=== PATIENT | female | born 1960 | race Caucasian/White ===

== ENCOUNTER 2016-02-19 21:30 | Emergency (ER) | payer OTHER ==
[2016-02-19 21:46] VITALS: RESP 20
--- NOTE | 2016-02-19 23:52 | ED ---
Back Pain HPI - General Chief Complaint: Back Pain/Injury Stated Complaint: fell, back & head injury Time Seen by Provider: 02/19/16 23:23 Source: patient, RN notes reviewed Limitations: no limitations - History of Present Illness Initial Comments: Patient is a 55-year-old female since emergency room for evaluation of fall. Patient states she tripped over a cord follow on her back and then forward hitting her head. Patient states she blacked out for a few seconds. Patient states she woke up and she was having excruciating low back pain and bilateral hip pain. Patient states she has a titanium plate in her left hip is worried that she messed up the hardware. Patient does state that she has a history of chronic low back pain. Patient states the pain is a lot worse tonight. Patient states the incident happened around 8 PM. Patient states having 10 out of 10 pain. Patient states the pain is worse when she moves. Patient denies any numbness or tingling going down her legs. Patient denies saddle anesthesia. Patient denies urinary or fecal incontinence. Patient states that she hit her right arm but denies any significant pain. Patient states she has a slight rug burn over the right forearm. Patient denies any current headache. Patient denies changes in vision. Patient denies dizziness, nausea or vomiting. Patient denies neck pain. - Related Data Home Medications Medication Instructions Recorded Confirmed Clopidogrel Bisulfate [Plavix] 75 mg PO DAILY 06/11/13 02/19/16 Diltiazem Cd [Cardizem CD] 240 mg PO DAILY 06/11/13 02/19/16 ALPRAZolam [Xanax] 0.25 mg PO TID PRN 09/27/14 02/19/16 Albuterol Inhaler [Ventolin Hfa 2 puff INHALATION RT-Q6H PRN 09/27/14 02/19/16 Inhaler] Pantoprazole Sodium [Protonix] 40 mg PO DAILY 04/05/15 02/19/16 Albuterol Nebulized [Ventolin 2.5 mg INHALATION RT-Q6H PRN 05/07/15 02/19/16 Nebulized] Insulin Glargine [Lantus] 40 unit SQ QAM 05/07/15 02/19/16 Metoprolol Tartrate [Lopressor] 25 mg PO BID 05/07/15 02/19/16 Insulin Glargine [Lantus] 50 unit SQ HS 08/26/15 02/19/16 Insulin Glulisine [Apidra Solostar] See Protocol SQ TID 08/26/15 02/19/16 Topiramate [Topamax] 25 mg PO BID 10/09/15 02/19/16 Atorvastatin [Lipitor] 40 mg PO DAILY 10/21/15 02/19/16 Gabapentin [Neurontin] 100 mg PO HS PRN 12/03/15 02/19/16 Losartan Potassium [Cozaar] 25 mg PO DAILY 02/07/16 02/19/16 Previous Rx's Medication Instructions Recorded Aspirin 325 mg PO DAILY tab 10/11/15 Nitroglycerin Sl Tabs [Nitrostat] 0.4 mg SUBLINGUAL Q5M PRN #25 tab 10/11/15 Acetaminophen with Codeine 1 tab PO Q4H PRN #15 tab 02/20/16 [Tylenol w/codeine #3] Allergies Allergy/AdvReac Type Severity Reaction Status Date / Time adhesive tape Allergy Rash/Hives Verified 02/19/16 23:38 indomethacin Allergy Unknown Verified 02/19/16 23:38 ipratropium bromide Allergy Unknown Verified 02/19/16 23:38 [From Atrovent] ketorolac tromethamine Allergy Anaphylaxis Verified 02/19/16 23:38 [From Toradol] naproxen [From Naprosyn] Allergy Itching Verified 02/19/16 23:38 Sulfa (Sulfonamide Allergy Anaphylaxis Verified 02/19/16 23:38 Antibiotics) sulfamethoxazole Allergy Unknown Verified 02/19/16 23:38 [From Bactrim] tramadol Allergy Unknown Verified 02/19/16 23:38 trimethoprim [From Bactrim] Allergy Unknown Verified 02/19/16 23:38 venom-honey bee Allergy Anaphylaxis Verified 02/19/16 23:38 [bee venom (honey bee)] budesonide [From Symbicort] AdvReac Vomiting Verified 02/19/16 23:38 formoterol fumarate AdvReac Vomiting Verified 02/19/16 23:38 [From Symbicort] sucralose AdvReac Rapid Verified 02/19/16 23:38 [From Splenda (sucralose)] Heart Rate tramadol HCl [From Ultram] AdvReac SEIZURES Verified 02/19/16 23:38 Review of Systems ROS Statement: Those systems with pertinent positive or pertinent negative responses have been documented in the HPI. ROS Other: All systems not noted in ROS Statement are negative. Past Medical History Past Medical History: Coronary Artery Disease (CAD), Cancer, COPD, CVA/TIA, Diabetes Mellitus, GERD/Reflux, Hypertension Additional Past Medical History / Comment(s): HX: acute renal problem, neuropathy, CERVICAL CA. Perthes's dx affected short term memory. bilateral glaucoma.recent fall injured pinky finger rt hand. Last Myocardial Infarction Date:: 2001 or 2003 History of Any Multi-Drug Resistant Organisms: None Reported Past Surgical History: Cholecystectomy, Coronary Bypass/CABG, Heart Catheterization With Stent, Orthopedic Surgery Additional Past Surgical History / Comment(s): LEFT HIP ARTHOPLASTY. ORIF RIGHT ANKLE. Cervical cancer surgies. BILATERAL LASER EYE TX FOR GLAUCOMA. Laproscopy. TSS. stent to LAD in 10/2015 Past Anesthesia/Blood Transfusion Reactions: No Reported Reaction Date of Last Stent Placement:: 10/2015 Past Psychological History: Anxiety Additional Psychological History / Comment(s): Pt is disabled-SSI. She is independent and drives a car. Smoking Status: Never smoker Past Alcohol Use History: None Reported Additional Past Alcohol Use History / Comment(s): Pt was an alcoholic and has not drank since 1984 except for one bout of drinking in 2000. Past Drug Use History: None Reported - Past Family History Father History Unknown: Yes Family Medical History: COPD, Renal Disease Additional Family Medical History / Comment(s): Father at age 80yrs. of COPD and kidney faiilure. Mother History Unknown: Yes Family Medical History: Diabetes Mellitus Additional Family Medical History / Comment(s): Mother of diabetes at age 55 yrs. General Exam - General Exam Comments Initial Comments: Laying in exam room, uncomfortable secondary to pain. Limitations: no limitations General appearance: alert, in no apparent distress Head exam: Present: atraumatic, normocephalic, normal inspection Eye exam: Present: normal appearance, PERRL, EOMI Pupils: Present: normal accommodation ENT exam: Present: normal exam Neck exam: Present: normal inspection Respiratory exam: Present: normal lung sounds bilaterally. Absent: respiratory distress Cardiovascular Exam: Present: regular rate, normal rhythm, normal heart sounds Extremities exam: Present: normal inspection Left Hip exam: Present: normal inspection, full ROM. Absent: tenderness Upper Leg exam: Present: normal inspection Knee exam: Present: normal inspection Lower Leg exam: Present: normal inspection Neurovascular tendon exam: Present: no vascular compromise. Absent: pulse deficit (2+ dorsal pedal and posterior tibial pulses), abnormal cap refill ( Capillary refill less than 2 seconds) Gait: observed and normal Back exam: Present: paraspinal tenderness (righ lumbosacral pain), vertebral tenderness (lumbosacral pain) Neurological exam: Present: alert, oriented X3, CN II-XII intact, normal gait Expanded Patient oriented to: Present: person, place, time Speech: Present: fluid speech Cranial nerves: EOM's Intact: Normal, Facial Sensation: Normal Sensory exam: Upper Extremity Light Touch: Normal, Lower Extremity Light Touch: Normal Motor strength exam: RUE: 5, LUE: 5, RLE: 5, LLE: 5 Eye Response: (4) open spontaneously Motor Response: (6) obeys commands Verbal Response: (5) oriented Psychiatric exam: Present: normal affect, normal mood Skin exam: Present: warm, dry, intact, normal color. Absent: rash Course Vital Signs 02/19/16 02/20/16 21:45 01:40 Temperature 98.1 F 98 F Pulse Rate 79 86 Respiratory 20 20 Rate Blood Pressure 172/83 156/89 O2 Sat by Pulse 98 98 Oximetry Medical Decision Making - Medical Decision Making Patient is a 55-year-old female presents to the emergency room for evaluation of fall injury. Brain CT shows no acute findings. X-ray showed no abnormal findings. Advised patient to follow-up with her primary care provider for reevaluation in 24-48 hours. Patient states she understands everything that was discussed with her. Return parameters discussed. Case discussed with Dr. Damon. - Radiology Data Radiology results: report reviewed, image reviewed Disposition Clinical Impression: Fall, Closed head injury, Back pain Disposition: HOME SELF-CARE Condition: Good Instructions: Acute Low Back Pain (ED), Fall Prevention for Older Adults (ED), Head Injury (ED) Additional Instructions: Ice on and off for 10-15 minutes at a time. Take pain medications as needed. Please follow-up with primary care provider in 24-48 hours for reevaluation. If any new symptom arises or symptoms worsen, return to ER as soon as possible. Prescriptions: Acetaminophen with Codeine [Tylenol w/codeine #3] 1 tab PO Q4H PRN #15 tab PRN Reason: Pain Referrals: Singh Dowell MD [Primary Care Provider] - 1-2 days Time of Disposition: 01:26
[2016-02-19] MEDS ORDERED: MORPHINE SULFATE 10 MG/ML SYRINGE IM STA (23:53)
--- NOTE | 2016-02-20 00:41 | CT ---
EXAMINATION TYPE: CT brain aloine wo con DATE OF EXAM: 02/20/2016 12:23 AM COMPARISON: NONE HISTORY: fall, frontal bone pain CT DLP: 1609.90 mGycm Automated exposure control for dose reduction was used. TECHNIQUE: CT scan of the head and cervical spine are performed without contrast. FINDINGS: The ventricles and sulci appear normal. There is no mass effect or midline shift. There i s no sign of intracranial hemorrhage. The calvarium is intact. There is mild mucosal thickening in th e maxillary sinuses. There is mild ethmoid sinus mucosal thickening. The cervical vertebra have normal alignment. There is moderate spurring of the endplates from C3 to C 7. Posterior elements are intact. There is multilevel hypertrophic facet arthropathy. There is a very large posterior hypertrophic osteophyte at the C6-7 endplate with resultant significant cervical bon y spinal stenosis. There is also spinal stenosis at other levels due to facet arthropathy and endplat e spur formation. The canal is narrowed to 4 to 5 mm at C6-7. The skull base is intact. IMPRESSION: Mild sinusitis. Otherwise negative CT scan of the brain. Multilevel spondylosis with severe bony spinal stenosis at C6-7. No fracture.
--- NOTE | 2016-02-20 00:43 | XR ---
EXAMINATION TYPE: XR Hip LT and AP Pelvis DATE OF EXAM: 02/20/2016 12:28 AM COMPARISON: NONE HISTORY: Left hip pain TECHNIQUE: A single AP view of the pelvis is obtained. Two views of the left hip are obtained. FINDINGS: The pelvic ring is intact. There is a left hip prosthesis. Components appear in anatomic po sition. Sacroiliac joints are normal. I see no fracture. IMPRESSION Negative pelvis and left hip exam. No fracture seen.
--- NOTE | 2016-02-20 00:45 | XR ---
EXAMINATION TYPE: XR lumbosacral spine min 4V DATE OF EXAM: 02/20/2016 12:32 AM COMPARISON: 05/26/2014 HISTORY: Low back pain TECHNIQUE: 5 views FINDINGS: The lumbar vertebra have normal alignment. Posterior elements are intact. There is mild hyp ertrophic spur formation of the endplates. I see no compression fracture. Sacroiliac joints are not w ell seen. IMPRESSION: Mild spondylotic changes. No fracture seen. No change compared to old exam.
[2016-02-20] MEDS ORDERED: Acetaminophen-Codeine 300-30mg TAB PO STA (01:33)
[2016-02-20 01:41] VITALS: BP 156/89; PULSE 86; TEMP 98
== END 2016-02-20 01:41 | disposition home or self-care (01) ==
LOC: EC 21:30
DX: S09.90XA Unspecified injury of head, initial encounter (principal); M54.5 Low back pain; W18.09XA Striking against other object with subsequent fall, initial encounter; J44.9 Chronic obstructive pulmonary disease, unspecified; E11.40 Type 2 diabetes mellitus with diabetic neuropathy, unspecified; I10 Essential (primary) hypertension; K21.9 Gastro-esophageal reflux disease without esophagitis; F41.9 Anxiety disorder, unspecified; I25.10 Atherosclerotic heart disease of native coronary artery without angina pectoris; Z79.02 Long term (current) use of antithrombotics/antiplatelets; Z79.4 Long term (current) use of insulin; Z79.82 Long term (current) use of aspirin; Z79.899 Other long term (current) drug therapy; Z88.1 Allergy status to other antibiotic agents; Z88.2 Allergy status to sulfonamides; Z88.5 Allergy status to narcotic agent; Z88.6 Allergy status to analgesic agent; Z88.8 Allergy status to other drugs, medicaments and biological substances; Z86.73 Personal history of transient ischemic attack (TIA), and cerebral infarction without residual deficits
CPT/HCPCS: 70450; 72110; 72125; 73502; 99284

== ENCOUNTER 2016-03-02 03:45 | Emergency (ER) | payer OTHER ==
[2016-03-02 04:08] VITALS: TEMP 98
[2016-03-02] MEDS ORDERED: ONDANSETRON 4 MG/2 ML VIAL IVP STA (04:16)
[2016-03-02] MEDS ORDERED: FAMOTIDINE 20 MG/2 ML VIAL IV STA (04:43)
[2016-03-02 04:44] LABS: Basophils # (A) 0.1 k/uL (0-0.2); Basophils % (A) 1 %; CH 28.9; CHCM 34.6; Eosinophils # (A) 0.1 k/uL (0-0.7); Eosinophils % (A) 2 %; HCT 36.8 % (34.0-46.0); HDW 3.42; HGB 12.5 gm/dL (11.4-16.0); Luc # (Auto) 0.14; Luc % (Auto) 2; Lymphocytes # (A) 1.7 k/uL (1.0-4.8); Lymphocytes % (A) 25 %; MCH 28.6 pg (25.0-35.0); MCHC 34.1 g/dL (31.0-37.0); Mean Platelet Volume 7.7; Monocytes # (A) 0.6 k/uL (0-1.0); Monocytes % (A) 9 %; Neutrophils # (A) 4.2 k/uL (1.3-7.7); Neutrophils % (A) 62 %; Poikilocytosis Slight; RBC 4.38 m/uL (3.80-5.40); RDW 13.9 % (11.5-15.5); WBC 6.8 k/uL (3.8-10.6); WBC (Perox) 6.85
[2016-03-02 04:55] LABS: ALT 32 U/L (9-52); AST 20 U/L (14-36); Alkaline Phosphatase 134 U/L (38-126); Anion Gap 10 mmol/L; Blood Urea Nitrogen 14 mg/dL (7-17); Calcium 8.3 mg/dL (8.4-10.2); Carbon Dioxide 27 mmol/L (22-30); Chloride 109 mmol/L (98-107); Glucose 127 mg/dL (74-99); Non-African American GFR(MDRD) >60 (>60 ml/min/1.73 sqM); Potassium 3.7 mmol/L (3.5-5.1); Sodium 146 mmol/L (137-145); Total Bilirubin 0.5 mg/dL (0.2-1.3); Total Protein 6.5 g/dL (6.3-8.2)
[2016-03-02 06:57] VITALS: BP 148/71; PULSE 66; RESP 16
--- NOTE | 2016-03-02 06:57 | ED ---
Abdominal Pain HPI - General Chief Complaint: Abdominal Pain Stated Complaint: Abdominal Pain Time Seen by Provider: 03/02/16 04:16 Source: patient Mode of arrival: EMS Limitations: no limitations - History of Present Illness MD Complaint: abdominal pain -: hour(s) Location: epigastric Radiation: none Migration to: no migration Severity: moderate Consistency: constant Improves With: nothing Worsens With: nothing - Related Data Home Medications Medication Instructions Recorded Confirmed Clopidogrel Bisulfate [Plavix] 75 mg PO DAILY 06/11/13 03/11/16 Diltiazem Cd [Cardizem CD] 240 mg PO DAILY 06/11/13 03/11/16 ALPRAZolam [Xanax] 0.25 mg PO TID PRN 09/27/14 03/11/16 Albuterol Inhaler [Ventolin Hfa 2 puff INHALATION RT-Q6H PRN 09/27/14 03/11/16 Inhaler] Pantoprazole Sodium [Protonix] 40 mg PO BID 04/05/15 03/11/16 Albuterol Nebulized [Ventolin 2.5 mg INHALATION RT-Q6H PRN 05/07/15 03/11/16 Nebulized] Metoprolol Tartrate [Lopressor] 25 mg PO BID 05/07/15 03/11/16 Insulin Glargine [Lantus] 50 unit SQ BID 08/26/15 03/11/16 Insulin Glulisine [Apidra Solostar] See Protocol SQ TID 08/26/15 03/11/16 Topiramate [Topamax] 25 mg PO BID 10/09/15 03/11/16 Atorvastatin [Lipitor] 40 mg PO DAILY 10/21/15 03/11/16 Gabapentin [Neurontin] 100 mg PO HS PRN 12/03/15 03/11/16 Losartan Potassium [Cozaar] 25 mg PO DAILY 02/07/16 03/11/16 Topiramate [Topamax] 50 mg PO BID 03/04/16 03/11/16 Previous Rx's Medication Instructions Recorded Aspirin 325 mg PO DAILY tab 10/11/15 Nitroglycerin Sl Tabs [Nitrostat] 0.4 mg SUBLINGUAL Q5M PRN #25 tab 10/11/15 Acetaminophen with Codeine 1 tab PO Q4H PRN #15 tab 02/20/16 [Tylenol w/codeine #3] Acetaminophen with Codeine 1 tab PO Q4H #10 tab 03/04/16 [Tylenol w/codeine #3] Levofloxacin [Levaquin] 750 mg PO DAILY #4 tab 03/04/16 Ondansetron [Zofran] 4 mg PO Q8HR PRN #8 tab 03/04/16 Allergies Allergy/AdvReac Type Severity Reaction Status Date / Time adhesive tape Allergy Rash/Hives Verified 03/11/16 00:34 indomethacin Allergy Unknown Verified 03/11/16 00:34 ipratropium bromide Allergy Unknown Verified 03/11/16 00:34 [From Atrovent] ketorolac tromethamine Allergy Anaphylaxis Verified 03/11/16 00:34 [From Toradol] naproxen [From Naprosyn] Allergy Itching Verified 03/11/16 00:34 Sulfa (Sulfonamide Allergy Anaphylaxis Verified 03/11/16 00:34 Antibiotics) sulfamethoxazole Allergy Unknown Verified 03/11/16 00:34 [From Bactrim] tramadol Allergy Unknown Verified 03/11/16 00:34 trimethoprim [From Bactrim] Allergy Unknown Verified 03/11/16 00:34 venom-honey bee Allergy Anaphylaxis Verified 03/11/16 00:34 [bee venom (honey bee)] budesonide [From Symbicort] AdvReac Vomiting Verified 03/11/16 00:34 formoterol fumarate AdvReac Vomiting Verified 03/11/16 00:34 [From Symbicort] sucralose AdvReac Rapid Verified 03/11/16 00:34 [From Splenda (sucralose)] Heart Rate tramadol HCl [From Ultram] AdvReac SEIZURES Verified 03/11/16 00:34 Review of Systems ROS Statement: Those systems with pertinent positive or pertinent negative responses have been documented in the HPI. ROS Other: All systems not noted in ROS Statement are negative. Constitutional: Denies: fever, chills Respiratory: Denies: cough, dyspnea, wheezes Cardiovascular: Denies: chest pain, palpitations, edema Gastrointestinal: Reports: as per HPI, abdominal pain. Denies: nausea, vomiting , diarrhea, constipation Genitourinary: Denies: dysuria, hematuria Musculoskeletal: Denies: back pain Skin: Denies: rash Neurological: Denies: headache, weakness, numbness Past Medical History Past Medical History: Coronary Artery Disease (CAD), Cancer, COPD, CVA/TIA, Diabetes Mellitus, GERD/Reflux, Hypertension Additional Past Medical History / Comment(s): HX: acute renal problem, neuropathy, CERVICAL CA. Perthes's dx affected short term memory. bilateral glaucoma.recent fall injured pinky finger rt hand. Last Myocardial Infarction Date:: 2001 or 2003 History of Any Multi-Drug Resistant Organisms: None Reported Past Surgical History: Cholecystectomy, Coronary Bypass/CABG, Heart Catheterization With Stent, Orthopedic Surgery Additional Past Surgical History / Comment(s): LEFT HIP ARTHOPLASTY. ORIF RIGHT ANKLE. Cervical cancer surgies. BILATERAL LASER EYE TX FOR GLAUCOMA. Laproscopy. TSS. stent to LAD in 10/2015 Past Anesthesia/Blood Transfusion Reactions: No Reported Reaction Date of Last Stent Placement:: 10/2015 Past Psychological History: Anxiety Additional Psychological History / Comment(s): Pt is disabled-SSI. She is independent and drives a car. Smoking Status: Never smoker Past Alcohol Use History: None Reported Additional Past Alcohol Use History / Comment(s): Pt was an alcoholic and has not drank since 1984 except for one bout of drinking in 2000. Past Drug Use History: None Reported - Past Family History Father History Unknown: Yes Family Medical History: COPD, Renal Disease Additional Family Medical History / Comment(s): Father at age 80yrs. of COPD and kidney faiilure. Mother History Unknown: Yes Family Medical History: Diabetes Mellitus Additional Family Medical History / Comment(s): Mother of diabetes at age 55 yrs. General Exam Limitations: no limitations General appearance: alert, in no apparent distress Head exam: Present: atraumatic, normocephalic, normal inspection Eye exam: Present: normal appearance. Absent: scleral icterus, conjunctival injection Neck exam: Present: normal inspection, full ROM Respiratory exam: Present: normal lung sounds bilaterally. Absent: respiratory distress, wheezes, rales, rhonchi Cardiovascular Exam: Present: regular rate, normal rhythm, normal heart sounds. Absent: systolic murmur, diastolic murmur, rubs, gallop GI/Abdominal exam: Present: soft, tenderness (Mild epigastric tenderness no rebound or guarding), normal bowel sounds. Absent: distended, guarding, rebound , rigid, pulsatile mass, hernia Extremities exam: Present: normal capillary refill. Absent: pedal edema, calf tenderness Back exam: Present: normal inspection. Absent: CVA tenderness (R), CVA tenderness (L) Neurological exam: Present: alert Skin exam: Present: warm, dry, intact, normal color. Absent: rash, cyanosis, diaphoretic, erythema, petechiae, pallor, mottled Course Vital Signs 03/02/16 03/02/16 04:05 06:55 Temperature 98.0 F Pulse Rate 69 66 Respiratory 20 16 Rate Blood Pressure 138/82 148/71 O2 Sat by Pulse 97 99 Oximetry Medical Decision Making - Lab Data Result diagrams: 03/02/16 04:36 03/02/16 04:36 Lab Results 03/02/16 03/02/16 Range/Units 04:36 04:36 WBC 6.8 (3.8-10.6) k/uL RBC 4.38 (3.80-5.40) m/uL Hgb 12.5 (11.4-16.0) gm/dL Hct 36.8 (34.0-46.0) % MCV 84.0 (80.0-100.0) fL MCH 28.6 (25.0-35.0) pg MCHC 34.1 (31.0-37.0) g/dL RDW 13.9 (11.5-15.5) % Plt Count 203 (150-450) k/uL Neutrophils % 62 % Lymphocytes % 25 % Monocytes % 9 % Eosinophils % 2 % Basophils % 1 % Neutrophils # 4.2 (1.3-7.7) k/uL Lymphocytes # 1.7 (1.0-4.8) k/uL Monocytes # 0.6 (0-1.0) k/uL Eosinophils # 0.1 (0-0.7) k/uL Basophils # 0.1 (0-0.2) k/uL Poikilocytosis Slight Sodium 146 H (137-145) mmol/L Potassium 3.7 (3.5-5.1) mmol/L Chloride 109 H (98-107) mmol/L Carbon Dioxide 27 (22-30) mmol/L Anion Gap 10 mmol/L BUN 14 (7-17) mg/dL Creatinine 0.92 (0.52-1.04) mg/dL Est GFR (MDRD) Af Amer >60 (>60 ml/min/1.73 sqM) Est GFR (MDRD) Non-Af >60 (>60 ml/min/1.73 sqM) Glucose 127 H (74-99) mg/dL Calcium 8.3 L (8.4-10.2) mg/dL Total Bilirubin 0.5 (0.2-1.3) mg/dL AST 20 (14-36) U/L ALT 32 (9-52) U/L Alkaline Phosphatase 134 H (38-126) U/L Total Protein 6.5 (6.3-8.2) g/dL Albumin 3.5 (3.5-5.0) g/dL Disposition Clinical Impression: Gastritis Disposition: HOME SELF-CARE Condition: Good Instructions: Gastritis (ED) Referrals: Singh Dowell MD [Primary Care Provider] - 1-2 days
== END 2016-03-02 07:03 | disposition home or self-care (01) ==
LOC: EC 03:45
DX: K29.70 Gastritis, unspecified, without bleeding (principal); E11.9 Type 2 diabetes mellitus without complications; I25.10 Atherosclerotic heart disease of native coronary artery without angina pectoris; K21.9 Gastro-esophageal reflux disease without esophagitis; I10 Essential (primary) hypertension; J44.9 Chronic obstructive pulmonary disease, unspecified; Z95.1 Presence of aortocoronary bypass graft; Z95.5 Presence of coronary angioplasty implant and graft; Z79.82 Long term (current) use of aspirin; Z79.02 Long term (current) use of antithrombotics/antiplatelets; Z79.899 Other long term (current) drug therapy; Z79.4 Long term (current) use of insulin; Z88.2 Allergy status to sulfonamides; Z88.1 Allergy status to other antibiotic agents; Z88.5 Allergy status to narcotic agent; Z88.6 Allergy status to analgesic agent; Z88.8 Allergy status to other drugs, medicaments and biological substances; Z86.73 Personal history of transient ischemic attack (TIA), and cerebral infarction without residual deficits
CPT/HCPCS: 36415; 80053; 85025; 99284; 96374; 96375; J2405

== ENCOUNTER 2016-03-04 18:57 | Emergency (ER) | payer OTHER ==
[2016-03-04 19:18] VITALS: RESP 18; TEMP 98.3
[2016-03-04] MEDS ORDERED: SODIUM CHLORIDE 0.9% 1,000 ML IV STA (19:29)
--- NOTE | 2016-03-04 19:31 | ED ---
Abdominal Pain HPI - General Chief Complaint: Abdominal Pain Stated Complaint: RT SIDE ABDOMINAL PAIN Time Seen by Provider: 03/04/16 19:20 Source: patient, RN notes reviewed Mode of arrival: ambulatory Limitations: no limitations - History of Present Illness Initial Comments: Patient is a 55-year-old female presenting to the for revisit of abdominal pain. Patient reports that she was seen 2 days ago and was diagnosed with gastritis and was given Pepcid. Patient reports that despite taking the medications, she still having abdominal pain. Patient reports that she also has symptoms of dysuria. She denies any vaginal discharge. Patient reports that the pain is mainly located in the right upper quadrant. She's had a history of cholecystectomy. She has a past medical history of diabetes and states that she has been taking her insulin regularly today. Patient reports that she was able to eat Hebrew food earlier this evening. She denies any vomiting. She just reports a sharp pain on the right upper quadrant that radiates towards the right lower quadrant. She states that the pain is also worse with position. She denies any hematuria, diarrhea, arm melena or hematochezia. She denies any fevers or chills. She reports her last menstrual period was approximately 10 years ago. - Related Data Home Medications Medication Instructions Recorded Confirmed Clopidogrel Bisulfate [Plavix] 75 mg PO DAILY 06/11/13 03/04/16 Diltiazem Cd [Cardizem CD] 240 mg PO DAILY 06/11/13 03/04/16 ALPRAZolam [Xanax] 0.25 mg PO TID PRN 09/27/14 03/04/16 Albuterol Inhaler [Ventolin Hfa 2 puff INHALATION RT-Q6H PRN 09/27/14 03/04/16 Inhaler] Pantoprazole Sodium [Protonix] 40 mg PO BID 04/05/15 03/04/16 Albuterol Nebulized [Ventolin 2.5 mg INHALATION RT-Q6H PRN 05/07/15 03/04/16 Nebulized] Metoprolol Tartrate [Lopressor] 25 mg PO BID 05/07/15 03/04/16 Insulin Glargine [Lantus] 50 unit SQ BID 08/26/15 03/04/16 Insulin Glulisine [Apidra Solostar] See Protocol SQ TID 08/26/15 03/04/16 Topiramate [Topamax] 25 mg PO BID 10/09/15 03/04/16 Atorvastatin [Lipitor] 40 mg PO DAILY 10/21/15 03/04/16 Gabapentin [Neurontin] 100 mg PO HS PRN 12/03/15 03/04/16 Losartan Potassium [Cozaar] 25 mg PO DAILY 02/07/16 03/04/16 Topiramate [Topamax] 50 mg PO BID 03/04/16 03/04/16 Previous Rx's Medication Instructions Recorded Aspirin 325 mg PO DAILY tab 10/11/15 Nitroglycerin Sl Tabs [Nitrostat] 0.4 mg SUBLINGUAL Q5M PRN #25 tab 10/11/15 Acetaminophen with Codeine 1 tab PO Q4H PRN #15 tab 02/20/16 [Tylenol w/codeine #3] Acetaminophen with Codeine 1 tab PO Q4H #10 tab 03/04/16 [Tylenol w/codeine #3] Levofloxacin [Levaquin] 750 mg PO DAILY #4 tab 03/04/16 Ondansetron [Zofran] 4 mg PO Q8HR PRN #8 tab 03/04/16 Allergies Allergy/AdvReac Type Severity Reaction Status Date / Time adhesive tape Allergy Rash/Hives Verified 03/04/16 19:16 indomethacin Allergy Unknown Verified 03/04/16 19:16 ipratropium bromide Allergy Unknown Verified 03/04/16 19:16 [From Atrovent] ketorolac tromethamine Allergy Anaphylaxis Verified 03/04/16 19:16 [From Toradol] naproxen [From Naprosyn] Allergy Itching Verified 03/04/16 19:16 Sulfa (Sulfonamide Allergy Anaphylaxis Verified 03/04/16 19:16 Antibiotics) sulfamethoxazole Allergy Unknown Verified 03/04/16 19:16 [From Bactrim] tramadol Allergy Unknown Verified 03/04/16 19:16 trimethoprim [From Bactrim] Allergy Unknown Verified 03/04/16 19:16 venom-honey bee Allergy Anaphylaxis Verified 03/04/16 19:16 [bee venom (honey bee)] budesonide [From Symbicort] AdvReac Vomiting Verified 03/04/16 19:16 formoterol fumarate AdvReac Vomiting Verified 03/04/16 19:16 [From Symbicort] sucralose AdvReac Rapid Verified 03/04/16 19:16 [From Splenda (sucralose)] Heart Rate tramadol HCl [From Ultram] AdvReac SEIZURES Verified 03/04/16 19:16 Review of Systems ROS Statement: Those systems with pertinent positive or pertinent negative responses have been documented in the HPI. ROS Other: All systems not noted in ROS Statement are negative. Past Medical History Past Medical History: Coronary Artery Disease (CAD), Cancer, COPD, CVA/TIA, Diabetes Mellitus, GERD/Reflux, Hypertension Additional Past Medical History / Comment(s): HX: acute renal problem, neuropathy, CERVICAL CA. Perthes's dx affected short term memory. bilateral glaucoma.recent fall injured pinky finger rt hand. Last Myocardial Infarction Date:: 2001 or 2003 History of Any Multi-Drug Resistant Organisms: None Reported Past Surgical History: Cholecystectomy, Coronary Bypass/CABG, Heart Catheterization With Stent, Orthopedic Surgery Additional Past Surgical History / Comment(s): LEFT HIP ARTHOPLASTY. ORIF RIGHT ANKLE. Cervical cancer surgies. BILATERAL LASER EYE TX FOR GLAUCOMA. Laproscopy. TSS. stent to LAD in 10/2015 Past Anesthesia/Blood Transfusion Reactions: No Reported Reaction Date of Last Stent Placement:: 10/2015 Past Psychological History: Anxiety Additional Psychological History / Comment(s): Pt is disabled-SSI. She is independent and drives a car. Smoking Status: Never smoker Past Alcohol Use History: None Reported Additional Past Alcohol Use History / Comment(s): Pt was an alcoholic and has not drank since 1984 except for one bout of drinking in 2000. Past Drug Use History: None Reported - Past Family History Father History Unknown: Yes Family Medical History: COPD, Renal Disease Additional Family Medical History / Comment(s): Father at age 80yrs. of COPD and kidney faiilure. Mother History Unknown: Yes Family Medical History: Diabetes Mellitus Additional Family Medical History / Comment(s): Mother of diabetes at age 55 yrs. General Exam - General Exam Comments Initial Comments: Patient is a pleasant 55-year-old female. Appear to be in any acute distress. Limitations: no limitations General appearance: alert, in no apparent distress Head exam: Present: atraumatic, normocephalic, normal inspection Eye exam: Present: normal appearance, PERRL, EOMI. Absent: scleral icterus, conjunctival injection, periorbital swelling ENT exam: Present: normal exam, mucous membranes moist Neck exam: Present: normal inspection. Absent: tenderness, meningismus, lymphadenopathy Respiratory exam: Present: normal lung sounds bilaterally. Absent: respiratory distress, wheezes, rales, rhonchi, stridor Cardiovascular Exam: Present: regular rate, normal rhythm, normal heart sounds. Absent: systolic murmur, diastolic murmur, rubs, gallop, clicks GI/Abdominal exam: Present: soft, tenderness (Patient reports right flank and right upper quadrant tenderness.), normal bowel sounds. Absent: distended, guarding, rebound, rigid Extremities exam: Present: normal inspection, full ROM, normal capillary refill. Absent: tenderness, pedal edema, joint swelling, calf tenderness Back exam: Present: normal inspection Neurological exam: Present: alert, oriented X3, CN II-XII intact Psychiatric exam: Present: normal affect, normal mood Skin exam: Present: warm, dry, intact, normal color. Absent: rash Course Vital Signs 03/04/16 03/04/16 19:16 21:12 Temperature 98.3 F 98.3 F Pulse Rate 75 68 Respiratory 18 18 Rate Blood Pressure 172/79 135/62 O2 Sat by Pulse 98 99 Oximetry Medical Decision Making - Medical Decision Making Patient is a 55 year old female with right flank pain and right upper quadrant pain for 2 days. She was seen 2 days ago and diagnosed with gastritis. She denies any vomiting and diarrhea. She states she was able to eat niuean food earlier today. She reports some mild dysuria. Lab reviewed and unremarkable, patient may have mild UTI starting and will be placed on levaquin and suggested by Dr. Plata. At this point it is not indicated to do a CT at this time, and urinalysis is negative for blood. Patient understands treatment plan and will comply. PAtient will be given Rx for pain medication, levaquin, and instructed to follow up with her PCP. Patient at the end of the visit stated that she has an appointment with her PCP tomorrow. Return parameters discussed. - Lab Data Result diagrams: 03/04/16 20:05 03/04/16 20:05 Lab Results 03/04/16 03/04/16 03/04/16 Range/Units 19:50 20:05 20:05 WBC 7.9 (3.8-10.6) k/uL RBC 4.30 (3.80-5.40) m/uL Hgb 12.4 (11.4-16.0) gm/dL Hct 37.0 (34.0-46.0) % MCV 85.9 (80.0-100.0) fL MCH 28.7 (25.0-35.0) pg MCHC 33.4 (31.0-37.0) g/dL RDW 14.0 (11.5-15.5) % Plt Count 236 (150-450) k/uL Neutrophils % 71 % Lymphocytes % 20 % Monocytes % 5 % Eosinophils % 2 % Basophils % 1 % Neutrophils # 5.7 (1.3-7.7) k/uL Lymphocytes # 1.6 (1.0-4.8) k/uL Monocytes # 0.4 (0-1.0) k/uL Eosinophils # 0.2 (0-0.7) k/uL Basophils # 0.1 (0-0.2) k/uL Sodium 143 (137-145) mmol/L Potassium 4.0 (3.5-5.1) mmol/L Chloride 106 (98-107) mmol/L Carbon Dioxide 24 (22-30) mmol/L Anion Gap 13 mmol/L BUN 12 (7-17) mg/dL Creatinine 0.85 (0.52-1.04) mg/dL Est GFR (MDRD) Af Amer >60 (>60 ml/min/1.73 sqM) Est GFR (MDRD) Non-Af >60 (>60 ml/min/1.73 sqM) Glucose 260 H (74-99) mg/dL Calcium 8.3 L (8.4-10.2) mg/dL Total Bilirubin 0.5 (0.2-1.3) mg/dL AST 23 (14-36) U/L ALT 41 (9-52) U/L Alkaline Phosphatase 144 H (38-126) U/L Total Protein 6.6 (6.3-8.2) g/dL Albumin 3.4 L (3.5-5.0) g/dL Amylase 61 (30-110) U/L Lipase 263 (23-300) U/L Urine Color Yellow Urine Appearance Cloudy H (Clear) Urine pH 5.5 (5.0-8.0) Ur Specific Garrett 1.017 (1.001-1.035) Urine Protein Trace H (Negative) Urine Glucose (UA) 4+ H (Negative) Urine Ketones Negative (Negative) Urine Blood Negative (Negative) Urine Nitrate Negative (Negative) Urine Bilirubin Negative (Negative) Urine Urobilinogen 2.0 (<2.0) mg/dL Ur Leukocyte Esterase Small H (Negative) Urine RBC 1 (0-5) /hpf Urine WBC 14 H (0-5) /hpf Ur Squamous Epith Cells 16 H (0-4) /hpf Urine Bacteria Rare H (None) /hpf - Radiology Data Radiology results: report reviewed KUB shows no acute abnormalities. Disposition Clinical Impression: Urinary tract infection Disposition: HOME SELF-CARE Condition: Good Instructions: Urinary Tract Infection in Women (ED) Additional Instructions: Patient instructed to completely anabiotic prescription. Follow-up with primary care provider tomorrow. Return to the [facility] any alarming signs symptoms occur. Prescriptions: Acetaminophen with Codeine [Tylenol w/codeine #3] 1 tab PO Q4H #10 tab Levofloxacin [Levaquin] 750 mg PO DAILY #4 tab Ondansetron [Zofran] 4 mg PO Q8HR PRN #8 tab PRN Reason: Nausea And Vomiting Referrals: Singh Dowell MD [Primary Care Provider] - 1-2 days Time of Disposition: 21:01
[2016-03-04 20:15] LABS: Appearance,Urine Cloudy (Clear); Bacteria,Urine Rare /hpf; Bilirubin,Urine Negative (Negative); Glucose,Urine (UA) 4+ (Negative); Ketones,Urine Negative (Negative); Leukocyte Esterase,Urine Small (Negative); Nitrite,Urine Negative (Negative); PH, Urine 5.5 (5.0-8.0); Particle Count 6573; Protein,Urine Trace (Negative); RBC,Urine 1 /hpf (0-5); Specific Gravity,Urine 1.017 (1.001-1.035); Squamous Epithelial Cell,Urine 16 /hpf (0-4); UA Billing (MACRO vs. MICRO) MICRO; WBC,Urine 14 /hpf (0-5)
[2016-03-04 20:19] LABS: Basophils # (A) 0.1 k/uL (0-0.2); Basophils % (A) 1 %; CH 28.7; CHCM 33.6; Eosinophils # (A) 0.2 k/uL (0-0.7); Eosinophils % (A) 2 %; HDW 3.34; HGB 12.4 gm/dL (11.4-16.0); Luc # (Auto) 0.12; Luc % (Auto) 2; Lymphocytes # (A) 1.6 k/uL (1.0-4.8); Lymphocytes % (A) 20 %; MCH 28.7 pg (25.0-35.0); MCHC 33.4 g/dL (31.0-37.0); MCV 85.9 fL (80.0-100.0); Mean Platelet Volume 7.4; Monocytes # (A) 0.4 k/uL (0-1.0); Monocytes % (A) 5 %; Neutrophils # (A) 5.7 k/uL (1.3-7.7); Neutrophils % (A) 71 %; WBC 7.9 k/uL (3.8-10.6); WBC (Perox) 8.48
[2016-03-04 20:25] LABS: ALT 41 U/L (9-52); AST 23 U/L (14-36); Alkaline Phosphatase 144 U/L (38-126); Amylase 61 U/L (30-110); Anion Gap 13 mmol/L; Blood Urea Nitrogen 12 mg/dL (7-17); Calcium 8.3 mg/dL (8.4-10.2); Carbon Dioxide 24 mmol/L (22-30); Chloride 106 mmol/L (98-107); Glucose 260 mg/dL (74-99); Non-African American GFR(MDRD) >60 (>60 ml/min/1.73 sqM); Sodium 143 mmol/L (137-145); Total Bilirubin 0.5 mg/dL (0.2-1.3); Total Protein 6.6 g/dL (6.3-8.2)
--- NOTE | 2016-03-04 20:31 | XR ---
EXAMINATION TYPE: XR KUB DATE OF EXAM ORDERED: 03/04/2016 8:26 PM HISTORY: Left-sided abdominal pain. COMPARISON: Previous study dated 07/24/2015. FINDINGS: There has been a previous midline sternotomy. There has been a left hip arthroplasty. Ther e has been a previous cholecystectomy. There is a dextroscoliosis. The abdominal gas pattern is within normal limits. There is no evidence of obstruction or free air. T here are stable left upper quadrant calcifications. IMPRESSION: I DO NOT SEE AN ACUTE INTRA-ABDOMINAL ABNORMALITY.
[2016-03-04] MEDS ORDERED: ACET/COD 300 MG/30 MG STARTER PACK 6 TAB BTL PO STA (21:03)
[2016-03-04] MEDS ORDERED: LEVOFLOXACIN 750 MG TAB PO STA (21:03)
[2016-03-04 21:13] VITALS: BP 135/62; PULSE 68
== END 2016-03-04 21:12 | disposition home or self-care (01) ==
LOC: EC 18:57
DX: N39.0 Urinary tract infection, site not specified (principal); E11.9 Type 2 diabetes mellitus without complications; I25.10 Atherosclerotic heart disease of native coronary artery without angina pectoris; I10 Essential (primary) hypertension; K21.9 Gastro-esophageal reflux disease without esophagitis; F41.9 Anxiety disorder, unspecified; Z85.41 Personal history of malignant neoplasm of cervix uteri; Z95.5 Presence of coronary angioplasty implant and graft; Z95.1 Presence of aortocoronary bypass graft; Z79.899 Other long term (current) drug therapy; Z79.02 Long term (current) use of antithrombotics/antiplatelets; Z79.4 Long term (current) use of insulin; Z88.8 Allergy status to other drugs, medicaments and biological substances; Z88.2 Allergy status to sulfonamides; Z88.6 Allergy status to analgesic agent; Z88.5 Allergy status to narcotic agent; Z88.1 Allergy status to other antibiotic agents
CPT/HCPCS: 36415; 74000; 80053; 81001; 82150; 83690; 85025; 87086; 99284

== ENCOUNTER 2016-03-11 00:26 | Emergency (ER) | payer OTHER ==
[2016-03-11 00:34] VITALS: BP 171/78; PULSE 63; RESP 16; TEMP 98.5
--- NOTE | 2016-03-11 01:27 | ED ---
Upper Extremity HPI - General Chief Complaint: Extremity Injury, Upper Stated Complaint: Arm injury/Fell down stairs Time Seen by Provider: 03/11/16 00:36 Source: patient, RN notes reviewed Mode of arrival: ambulatory Limitations: no limitations - History of Present Illness Initial Comments: 55-year-old female presents emergency Department chief complaint of left elbow injury. Patient states she tripped and fell down 2 stairs. Patient has no injuries other than left elbow pain. Patient states that she can not straighten elbow secondary to pain. Patient states she is right-hand dominant. Patient offers no other complaints. Place: home - Related Data Home Medications Medication Instructions Recorded Confirmed Clopidogrel Bisulfate [Plavix] 75 mg PO DAILY 06/11/13 03/11/16 Diltiazem Cd [Cardizem CD] 240 mg PO DAILY 06/11/13 03/11/16 ALPRAZolam [Xanax] 0.25 mg PO TID PRN 09/27/14 03/11/16 Albuterol Inhaler [Ventolin Hfa 2 puff INHALATION RT-Q6H PRN 09/27/14 03/11/16 Inhaler] Pantoprazole Sodium [Protonix] 40 mg PO BID 04/05/15 03/11/16 Albuterol Nebulized [Ventolin 2.5 mg INHALATION RT-Q6H PRN 05/07/15 03/11/16 Nebulized] Metoprolol Tartrate [Lopressor] 25 mg PO BID 05/07/15 03/11/16 Insulin Glargine [Lantus] 50 unit SQ BID 08/26/15 03/11/16 Insulin Glulisine [Apidra Solostar] See Protocol SQ TID 08/26/15 03/11/16 Topiramate [Topamax] 25 mg PO BID 10/09/15 03/11/16 Atorvastatin [Lipitor] 40 mg PO DAILY 10/21/15 03/11/16 Gabapentin [Neurontin] 100 mg PO HS PRN 12/03/15 03/11/16 Losartan Potassium [Cozaar] 25 mg PO DAILY 02/07/16 03/11/16 Topiramate [Topamax] 50 mg PO BID 03/04/16 03/11/16 Previous Rx's Medication Instructions Recorded Aspirin 325 mg PO DAILY tab 10/11/15 Nitroglycerin Sl Tabs [Nitrostat] 0.4 mg SUBLINGUAL Q5M PRN #25 tab 10/11/15 Acetaminophen with Codeine 1 tab PO Q4H PRN #15 tab 02/20/16 [Tylenol w/codeine #3] Acetaminophen with Codeine 1 tab PO Q4H #10 tab 03/04/16 [Tylenol w/codeine #3] Levofloxacin [Levaquin] 750 mg PO DAILY #4 tab 03/04/16 Ondansetron [Zofran] 4 mg PO Q8HR PRN #8 tab 03/04/16 Allergies Allergy/AdvReac Type Severity Reaction Status Date / Time adhesive tape Allergy Rash/Hives Verified 03/11/16 00:34 indomethacin Allergy Unknown Verified 03/11/16 00:34 ipratropium bromide Allergy Unknown Verified 03/11/16 00:34 [From Atrovent] ketorolac tromethamine Allergy Anaphylaxis Verified 03/11/16 00:34 [From Toradol] naproxen [From Naprosyn] Allergy Itching Verified 03/11/16 00:34 Sulfa (Sulfonamide Allergy Anaphylaxis Verified 03/11/16 00:34 Antibiotics) sulfamethoxazole Allergy Unknown Verified 03/11/16 00:34 [From Bactrim] tramadol Allergy Unknown Verified 03/11/16 00:34 trimethoprim [From Bactrim] Allergy Unknown Verified 03/11/16 00:34 venom-honey bee Allergy Anaphylaxis Verified 03/11/16 00:34 [bee venom (honey bee)] budesonide [From Symbicort] AdvReac Vomiting Verified 03/11/16 00:34 formoterol fumarate AdvReac Vomiting Verified 03/11/16 00:34 [From Symbicort] sucralose AdvReac Rapid Verified 03/11/16 00:34 [From Splenda (sucralose)] Heart Rate tramadol HCl [From Ultram] AdvReac SEIZURES Verified 03/11/16 00:34 Review of Systems ROS Statement: Those systems with pertinent positive or pertinent negative responses have been documented in the HPI. ROS Other: All systems not noted in ROS Statement are negative. Past Medical History Past Medical History: Coronary Artery Disease (CAD), Cancer, COPD, CVA/TIA, Diabetes Mellitus, GERD/Reflux, Hypertension Additional Past Medical History / Comment(s): HX: acute renal problem, neuropathy, CERVICAL CA. Perthes's dx affected short term memory. bilateral glaucoma.recent fall injured pinky finger rt hand. Last Myocardial Infarction Date:: 2001 or 2003 History of Any Multi-Drug Resistant Organisms: None Reported Past Surgical History: Cholecystectomy, Coronary Bypass/CABG, Heart Catheterization With Stent, Orthopedic Surgery Additional Past Surgical History / Comment(s): LEFT HIP ARTHOPLASTY. ORIF RIGHT ANKLE. Cervical cancer surgies. BILATERAL LASER EYE TX FOR GLAUCOMA. Laproscopy. TSS. stent to LAD in 10/2015 Past Anesthesia/Blood Transfusion Reactions: No Reported Reaction Date of Last Stent Placement:: 10/2015 Past Psychological History: Anxiety Additional Psychological History / Comment(s): Pt is disabled-SSI. She is independent and drives a car. Smoking Status: Never smoker Past Alcohol Use History: None Reported Additional Past Alcohol Use History / Comment(s): Pt was an alcoholic and has not drank since 1984 except for one bout of drinking in 2000. Past Drug Use History: None Reported - Past Family History Father History Unknown: Yes Family Medical History: COPD, Renal Disease Additional Family Medical History / Comment(s): Father at age 80yrs. of COPD and kidney faiilure. Mother History Unknown: Yes Family Medical History: Diabetes Mellitus Additional Family Medical History / Comment(s): Mother of diabetes at age 55 yrs. General Exam Limitations: no limitations General appearance: alert, in no apparent distress Head exam: Present: atraumatic, normocephalic, normal inspection Neck exam: Present: normal inspection, full ROM. Absent: tenderness, meningismus, lymphadenopathy Respiratory exam: Present: normal lung sounds bilaterally. Absent: respiratory distress, wheezes, rales, rhonchi, stridor Cardiovascular Exam: Present: regular rate, normal rhythm, normal heart sounds. Absent: systolic murmur, diastolic murmur, rubs, gallop, clicks Extremities exam: Present: other (Left elbow there is mild tenderness noted, no swelling no ecchymosis neurovascular intact patient reports tenderness over the left elbow there is no distal forearm tenderness and no proximal humeral tenderness) Course Vital Signs 03/11/16 00:31 Temperature 98.5 F Pulse Rate 63 Respiratory 16 Rate Blood Pressure 171/78 O2 Sat by Pulse 98 Oximetry Medical Decision Making - Medical Decision Making 55-year-old female presented for left elbow injury. Patient has no acute fracture there is no fat pad sign. Patient is requesting a sling and was placed in a sling at this time. She is encouraged to take it out of the sling frequently and move her elbow. She'll follow-up with orthopedics or primary care physician if no improvement. Disposition Clinical Impression: Left elbow contusion Disposition: HOME SELF-CARE Condition: Stable Instructions: Contusion in Adults (ED) Additional Instructions: Please return to the Emergency Department if symptoms worsen or any other concerns. Time of Disposition: 01:26
--- NOTE | 2016-03-11 01:32 | XR ---
EXAMINATION TYPE: XR elbow limited LT DATE OF EXAM: 03/11/2016 12:56 AM CLINICAL HISTORY: History of pain in the left elbow following fall down stairs, patient is unable to extend arm fully. 4 trauma views were obtained. TECHNIQUE: Frontal, lateral and oblique images of the left elbow are obtained. COMPARISON: None. FINDINGS: There is no acute fracture/dislocation evident of the elbow. No abnormal fat pad signs ar e seen. Mild soft tissue swelling is suggested around the left elbow. IMPRESSION: There is no acute fracture or dislocation of the elbow. If clinical symptoms persist a follow-up in one week's time may BE helpful. Mild soft tissue swelling around the left elbow. ICD 10 NO FRACTURE, INITIAL EVALUATION
== END 2016-03-11 01:30 | disposition home or self-care (01) ==
LOC: EC 00:26
DX: S50.02XA Contusion of left elbow, initial encounter (principal); W10.9XXA Fall (on) (from) unspecified stairs and steps, initial encounter; I25.10 Atherosclerotic heart disease of native coronary artery without angina pectoris; I10 Essential (primary) hypertension; E11.9 Type 2 diabetes mellitus without complications; J44.9 Chronic obstructive pulmonary disease, unspecified; K21.9 Gastro-esophageal reflux disease without esophagitis; Z79.82 Long term (current) use of aspirin; Z79.4 Long term (current) use of insulin; Z79.02 Long term (current) use of antithrombotics/antiplatelets; Z79.899 Other long term (current) drug therapy; Z88.8 Allergy status to other drugs, medicaments and biological substances; Z88.1 Allergy status to other antibiotic agents; Z88.2 Allergy status to sulfonamides; Z88.5 Allergy status to narcotic agent; Z88.6 Allergy status to analgesic agent; Z95.5 Presence of coronary angioplasty implant and graft; Z95.1 Presence of aortocoronary bypass graft; Z86.73 Personal history of transient ischemic attack (TIA), and cerebral infarction without residual deficits
CPT/HCPCS: 99283

== ENCOUNTER 2016-03-19 02:35 | Emergency (ER) | payer OTHER ==
[2016-03-19 02:43] VITALS: BP 178/73; PULSE 67; RESP 19; TEMP 98.4
[2016-03-19] MEDS ORDERED: diphenhydrAMINE 50 MG CAP PO STA (02:51)
[2016-03-19] MEDS ORDERED: HYDROCORTISONE 1% CREAM 30 GM TUBE TOPICAL PRN (02:51)
--- NOTE | 2016-03-19 02:55 | ED ---
General Adult HPI - General Chief complaint: Allergic Reaction Stated complaint: Possible allergic reaction/rash Time Seen by Provider: 03/19/16 02:45 Source: patient, RN notes reviewed, old records reviewed Mode of arrival: ambulatory Limitations: no limitations - History of Present Illness Initial comments: Patient 55-year-old female who presents emergency room today with chief complaint of possible ALLERGIC reaction. She does admit that she's been very itchy after starting a new insulin medication yesterday. She states that she's had some bumps red raised to the forearm areas. Does admit she been itching to the point where it bled. Patient states not taking any other medication. She denies any other complaints associated symptoms. Patient denies any recent fever , chills, shortness of breath, chest pain, back pain, abdominal pain, nausea or vomiting, numbness or tingling, dysuria or hematuria, constipation or diarrhea, headaches or visual changes, or any other complaints. - Related Data Home Medications Medication Instructions Recorded Confirmed Clopidogrel Bisulfate [Plavix] 75 mg PO DAILY 06/11/13 03/19/16 Diltiazem Cd [Cardizem CD] 240 mg PO DAILY 06/11/13 03/19/16 ALPRAZolam [Xanax] 0.25 mg PO TID PRN 09/27/14 03/19/16 Albuterol Inhaler [Ventolin Hfa 2 puff INHALATION RT-Q6H PRN 09/27/14 03/19/16 Inhaler] Pantoprazole Sodium [Protonix] 40 mg PO BID 04/05/15 03/19/16 Albuterol Nebulized [Ventolin 2.5 mg INHALATION RT-Q6H PRN 05/07/15 03/19/16 Nebulized] Metoprolol Tartrate [Lopressor] 25 mg PO BID 05/07/15 03/19/16 Insulin Glargine [Lantus] 50 unit SQ BID 08/26/15 03/19/16 Insulin Glulisine [Apidra Solostar] See Protocol SQ TID 08/26/15 03/19/16 Topiramate [Topamax] 25 mg PO BID 10/09/15 03/19/16 Atorvastatin [Lipitor] 40 mg PO DAILY 10/21/15 03/19/16 Gabapentin [Neurontin] 100 mg PO HS PRN 12/03/15 03/19/16 Losartan Potassium [Cozaar] 25 mg PO DAILY 02/07/16 03/19/16 Topiramate [Topamax] 50 mg PO BID 03/04/16 03/19/16 Previous Rx's Medication Instructions Recorded Aspirin 325 mg PO DAILY tab 10/11/15 Nitroglycerin Sl Tabs [Nitrostat] 0.4 mg SUBLINGUAL Q5M PRN #25 tab 10/11/15 Acetaminophen with Codeine 1 tab PO Q4H PRN #15 tab 02/20/16 [Tylenol w/codeine #3] Acetaminophen with Codeine 1 tab PO Q4H #10 tab 03/04/16 [Tylenol w/codeine #3] Levofloxacin [Levaquin] 750 mg PO DAILY #4 tab 03/04/16 Ondansetron [Zofran] 4 mg PO Q8HR PRN #8 tab 03/04/16 Hydrocortisone Cream 1 applic TOPICAL TID #1 cream..g. 03/19/16 [Hydrocortisone 1% Cream] diphenhydrAMINE [Benadryl] 1 - 2 tab PO Q6HR PRN #30 capsule 03/19/16 Allergies Allergy/AdvReac Type Severity Reaction Status Date / Time adhesive tape Allergy Rash/Hives Verified 03/19/16 02:43 indomethacin Allergy Unknown Verified 03/19/16 02:43 ipratropium bromide Allergy Unknown Verified 03/19/16 02:43 [From Atrovent] ketorolac tromethamine Allergy Anaphylaxis Verified 03/19/16 02:43 [From Toradol] naproxen [From Naprosyn] Allergy Itching Verified 03/19/16 02:43 Sulfa (Sulfonamide Allergy Anaphylaxis Verified 03/19/16 02:43 Antibiotics) sulfamethoxazole Allergy Unknown Verified 03/19/16 02:43 [From Bactrim] tramadol Allergy Unknown Verified 03/19/16 02:43 trimethoprim [From Bactrim] Allergy Unknown Verified 03/19/16 02:43 venom-honey bee Allergy Anaphylaxis Verified 03/19/16 02:43 [bee venom (honey bee)] budesonide [From Symbicort] AdvReac Vomiting Verified 03/19/16 02:43 formoterol fumarate AdvReac Vomiting Verified 03/19/16 02:43 [From Symbicort] sucralose AdvReac Rapid Verified 03/19/16 02:43 [From Splenda (sucralose)] Heart Rate tramadol HCl [From Ultram] AdvReac SEIZURES Verified 03/19/16 02:43 Review of Systems ROS Statement: Those systems with pertinent positive or pertinent negative responses have been documented in the HPI. ROS Other: All systems not noted in ROS Statement are negative. Past Medical History Past Medical History: Coronary Artery Disease (CAD), Cancer, COPD, CVA/TIA, Diabetes Mellitus, GERD/Reflux, Hypertension Additional Past Medical History / Comment(s): HX: acute renal problem, neuropathy, CERVICAL CA. Perthes's dx affected short term memory. bilateral glaucoma.recent fall injured pinky finger rt hand. Last Myocardial Infarction Date:: 2001 or 2003 History of Any Multi-Drug Resistant Organisms: None Reported Past Surgical History: Cholecystectomy, Coronary Bypass/CABG, Heart Catheterization With Stent, Orthopedic Surgery Additional Past Surgical History / Comment(s): LEFT HIP ARTHOPLASTY. ORIF RIGHT ANKLE. Cervical cancer surgies. BILATERAL LASER EYE TX FOR GLAUCOMA. Laproscopy. TSS. stent to LAD in 10/2015 Past Anesthesia/Blood Transfusion Reactions: No Reported Reaction Date of Last Stent Placement:: 10/2015 Past Psychological History: Anxiety Additional Psychological History / Comment(s): Pt is disabled-SSI. She is independent and drives a car. Smoking Status: Never smoker Past Alcohol Use History: None Reported Additional Past Alcohol Use History / Comment(s): Pt was an alcoholic and has not drank since 1984 except for one bout of drinking in 2000. Past Drug Use History: None Reported - Past Family History Father History Unknown: Yes Family Medical History: COPD, Renal Disease Additional Family Medical History / Comment(s): Father at age 80yrs. of COPD and kidney faiilure. Mother History Unknown: Yes Family Medical History: Diabetes Mellitus Additional Family Medical History / Comment(s): Mother of diabetes at age 55 yrs. General Exam - General Exam Comments Initial Comments: General: The patient is awake and alert, in no distress, and does not appear acutely ill. Eye: Pupils are equal, round and reactive to light, extra-ocular movements are intact. No nystagmus. There is normal conjunctiva bilaterally. No signs of icterus. Ears, nose, mouth and throat: There are moist mucous membranes and no oral lesions. Neck: The neck is supple, there is no tenderness or JVD. Cardiovascular: There is a regular rate and rhythm. No murmur, rub or gallop is appreciated. Respiratory: Lungs are clear to auscultation, respirations are non-labored, breath sounds are equal. No wheezes, stridor, rales, or rhonchi. Musculoskeletal: Normal ROM, no tenderness. Strength 5/5. Sensation intact. Pulses equal bilaterally 2+. Neurological: A&O x 3. CN II-XII intact, There are no obvious motor or sensory deficits. Coordination appears grossly intact. Speech is normal. Skin: Red raised erythematous areas do the volar aspects of the forearms bilaterally. Psychiatric: Cooperative, appropriate mood & affect, normal judgment. Limitations: no limitations Course Vital Signs 03/19/16 02:39 Temperature 98.4 F Pulse Rate 67 Respiratory 19 Rate Blood Pressure 178/73 O2 Sat by Pulse 99 Oximetry Disposition Clinical Impression: Allergic reaction Disposition: HOME SELF-CARE Condition: Good Instructions: General Allergic Reaction (ED) Additional Instructions: Please use medication as discussed. Please follow-up with family doctor in the next 2 days of symptoms have not improved. Please return to emergency room if the symptoms increase or worsen or for any other concerns. Prescriptions: Hydrocortisone Cream [Hydrocortisone 1% Cream] 1 applic TOPICAL TID #1 cream..g. diphenhydrAMINE [Benadryl] 1 - 2 tab PO Q6HR PRN #30 capsule PRN Reason: Allergic Reaction Time of Disposition: 02:55
== END 2016-03-19 03:21 | disposition home or self-care (01) ==
LOC: EC 02:35
DX: T78.40XA Allergy, unspecified, initial encounter (principal); I25.10 Atherosclerotic heart disease of native coronary artery without angina pectoris; J44.9 Chronic obstructive pulmonary disease, unspecified; E11.9 Type 2 diabetes mellitus without complications; F41.9 Anxiety disorder, unspecified; G62.9 Polyneuropathy, unspecified; K21.9 Gastro-esophageal reflux disease without esophagitis; I25.2 Old myocardial infarction; I10 Essential (primary) hypertension; Z85.89 Personal history of malignant neoplasm of other organs and systems; Z86.73 Personal history of transient ischemic attack (TIA), and cerebral infarction without residual deficits; Z79.4 Long term (current) use of insulin; Z79.899 Other long term (current) drug therapy; Z79.02 Long term (current) use of antithrombotics/antiplatelets; Z88.2 Allergy status to sulfonamides; Z91.030 Bee allergy status; Z91.048 Other nonmedicinal substance allergy status; Z88.6 Allergy status to analgesic agent; Z88.8 Allergy status to other drugs, medicaments and biological substances; Z95.5 Presence of coronary angioplasty implant and graft
CPT/HCPCS: 99283

== ENCOUNTER 2016-04-07 22:08 | Emergency (ER) | payer OTHER ==
--- NOTE | 2016-04-07 23:58 | ED ---
Upper Extremity HPI - General Chief Complaint: Extremity Injury, Upper Stated Complaint: Arm Injury Time Seen by Provider: 04/07/16 23:40 Source: patient, RN notes reviewed Mode of arrival: ambulatory Limitations: no limitations - History of Present Illness Initial Comments: 54-year-old female presents the emergency Department chief complaint of left elbow pain. Patient states she tripped and fell onto her left elbow about 6 weeks ago when she started to have some increased pain with movement of the elbow. Patient states that she has pain with any twisting or movement. Patient states that she has had increasing pain so she was concerned. Patient denies any other problems.Patient denies any recent fever, chills, shortness of breath, chest pain, back pain, abdominal pain, nausea vomiting, numbness or tingling, dysuria or hematuria, constipation or diarrhea, headaches or visual changes, or any other current symptoms. - Related Data Home Medications Medication Instructions Recorded Confirmed Clopidogrel Bisulfate [Plavix] 75 mg PO DAILY 06/11/13 04/07/16 Diltiazem Cd [Cardizem CD] 240 mg PO DAILY 06/11/13 04/07/16 ALPRAZolam [Xanax] 0.25 mg PO TID PRN 09/27/14 04/07/16 Albuterol Inhaler [Ventolin Hfa 2 puff INHALATION RT-Q6H PRN 09/27/14 04/07/16 Inhaler] Pantoprazole Sodium [Protonix] 40 mg PO BID 04/05/15 04/07/16 Albuterol Nebulized [Ventolin 2.5 mg INHALATION RT-Q6H PRN 05/07/15 04/07/16 Nebulized] Metoprolol Tartrate [Lopressor] 25 mg PO BID 05/07/15 04/07/16 Insulin Glargine [Lantus] 50 unit SQ BID 08/26/15 04/07/16 Insulin Glulisine [Apidra Solostar] See Protocol SQ TID 08/26/15 04/07/16 Topiramate [Topamax] 25 mg PO BID 10/09/15 04/07/16 Atorvastatin [Lipitor] 40 mg PO DAILY 10/21/15 04/07/16 Losartan Potassium [Cozaar] 25 mg PO DAILY 02/07/16 04/07/16 Topiramate [Topamax] 50 mg PO BID 03/04/16 04/07/16 Ranitidine HCl [Zantac] 150 mg PO BID 04/07/16 04/07/16 Previous Rx's Medication Instructions Recorded Aspirin 325 mg PO DAILY tab 10/11/15 Nitroglycerin Sl Tabs [Nitrostat] 0.4 mg SUBLINGUAL Q5M PRN #25 tab 10/11/15 Hydrocortisone Cream 1 applic TOPICAL TID #1 cream..g. 03/19/16 [Hydrocortisone 1% Cream] diphenhydrAMINE [Benadryl] 1 - 2 tab PO Q6HR PRN #30 capsule 03/19/16 Allergies Allergy/AdvReac Type Severity Reaction Status Date / Time adhesive tape Allergy Rash/Hives Verified 04/07/16 23:04 indomethacin Allergy Unknown Verified 04/07/16 23:04 insulin glargine Allergy Rash/Hives Verified 04/07/16 23:04 [From Basaglar KwikPen] ipratropium bromide Allergy Unknown Verified 04/07/16 23:04 [From Atrovent] ketorolac tromethamine Allergy Anaphylaxis Verified 04/07/16 23:04 [From Toradol] naproxen [From Naprosyn] Allergy Itching Verified 04/07/16 23:04 Sulfa (Sulfonamide Allergy Anaphylaxis Verified 04/07/16 23:04 Antibiotics) sulfamethoxazole Allergy Unknown Verified 04/07/16 23:04 [From Bactrim] tramadol Allergy Unknown Verified 04/07/16 23:04 trimethoprim [From Bactrim] Allergy Unknown Verified 04/07/16 23:04 venom-honey bee Allergy Anaphylaxis Verified 04/07/16 23:04 [bee venom (honey bee)] budesonide [From Symbicort] AdvReac Vomiting Verified 04/07/16 23:04 formoterol fumarate AdvReac Vomiting Verified 04/07/16 23:04 [From Symbicort] sucralose AdvReac Rapid Verified 04/07/16 23:04 [From Splenda (sucralose)] Heart Rate tramadol HCl [From Ultram] AdvReac SEIZURES Verified 04/07/16 23:04 Review of Systems ROS Statement: Those systems with pertinent positive or pertinent negative responses have been documented in the HPI. ROS Other: All systems not noted in ROS Statement are negative. Past Medical History Past Medical History: Coronary Artery Disease (CAD), Cancer, COPD, CVA/TIA, Diabetes Mellitus, GERD/Reflux, Hypertension Additional Past Medical History / Comment(s): HX: acute renal problem, neuropathy, CERVICAL CA. Perthes's dx affected short term memory. bilateral glaucoma.recent fall injured pinky finger rt hand. Last Myocardial Infarction Date:: 2001 or 2003 History of Any Multi-Drug Resistant Organisms: None Reported Past Surgical History: Cholecystectomy, Coronary Bypass/CABG, Heart Catheterization With Stent, Orthopedic Surgery Additional Past Surgical History / Comment(s): LEFT HIP ARTHOPLASTY. ORIF RIGHT ANKLE. Cervical cancer surgies. BILATERAL LASER EYE TX FOR GLAUCOMA. Laproscopy. TSS. stent to LAD in 10/2015 Past Anesthesia/Blood Transfusion Reactions: No Reported Reaction Date of Last Stent Placement:: 10/2015 Past Psychological History: Anxiety Additional Psychological History / Comment(s): Pt is disabled-SSI. She is independent and drives a car. Smoking Status: Never smoker Past Alcohol Use History: None Reported Additional Past Alcohol Use History / Comment(s): Pt was an alcoholic and has not drank since 1984 except for one bout of drinking in 2000. Past Drug Use History: None Reported - Past Family History Father History Unknown: Yes Family Medical History: COPD, Renal Disease Additional Family Medical History / Comment(s): Father at age 80yrs. of COPD and kidney faiilure. Mother History Unknown: Yes Family Medical History: Diabetes Mellitus Additional Family Medical History / Comment(s): Mother of diabetes at age 55 yrs. General Exam - General Exam Comments Initial Comments: General: The patient is awake and alert, in no distress, and does not appear acutely ill. Neck: The neck is supple, there is no tenderness. Cardiovascular: There is a regular rate and rhythm. No murmur, rub or gallop is appreciated. Respiratory: Lungs are clear to auscultation, respirations are non-labored, breath sounds are equal. No wheezes, stridor, rales, or rhonchi. Musculoskeletal: Sensation intact with 2+ pulses. Left upper extremity. Full range of motion left shoulder left elbow and left wrist. Patient does have pain to palpation over the left lateral epicondyles and over the medial no deformity or Laxity noted. Pain with Range of motion. Neurological: CN II-XII intact, There are no obvious motor or sensory deficits. Coordination appears grossly intact. Speech is normal. Skin: Skin is warm and dry and no rashes or lesions are noted. Psychiatric: Normal mood and affect. Limitations: no limitations Course Vital Signs 04/07/16 04/07/16 22:17 23:25 Temperature 98.1 F Pulse Rate 84 Respiratory 18 18 Rate Blood Pressure 138/88 O2 Sat by Pulse 98 Oximetry Medical Decision Making - Medical Decision Making 55-year-old female presents emergency Department chief complaint of left elbow pain. This time x-rays reviewed and negative. We discussed icing the area using Tylenol for pain control. We discussed follow-up with her doctor for possible need for physical therapy due to the fact it looks like she has a lateral epicondylitis. Patient stated that she understood all questions have been answered. She'll be discharged. - Radiology Data Radiology results: report reviewed, image reviewed Disposition Clinical Impression: Lateral epicondylitis of elbow Disposition: HOME SELF-CARE Condition: Stable Instructions: Elbow Sprain (ED) Additional Instructions: Please use medication as discussed. Please follow up with family doctor if symptoms have not improved over the next two days. Please return to the emergency room if your symptoms increase or worsen or for any other concerns. Referrals: Singh Dowell MD [Primary Care Provider] - 1-2 days Time of Disposition: 00:17
--- NOTE | 2016-04-08 00:10 | XR ---
EXAM: XR Left Elbow Complete, 3 or More Views. CLINICAL HISTORY: Reason: Pain TECHNIQUE: Frontal, lateral and oblique views of the left elbow. COMPARISON: 03/11/16 left elbow series FINDINGS: Bones: Unremarkable. No acute fracture. Joints: Unremarkable. No dislocation. Soft tissues: There may again be slight soft tissue swelling about the elbow. IMPRESSION: No acute osseous abnormality is seen, as above.
[2016-04-08 00:32] VITALS: BP 147/67; PULSE 70; RESP 16; TEMP 97.9
== END 2016-04-08 00:32 | disposition home or self-care (01) ==
LOC: EC 22:08
DX: S53.402A Unspecified sprain of left elbow, initial encounter (principal); M77.12 Lateral epicondylitis, left elbow; J44.9 Chronic obstructive pulmonary disease, unspecified; I10 Essential (primary) hypertension; I25.10 Atherosclerotic heart disease of native coronary artery without angina pectoris; I25.2 Old myocardial infarction; E11.9 Type 2 diabetes mellitus without complications; K21.9 Gastro-esophageal reflux disease without esophagitis; F41.9 Anxiety disorder, unspecified; Z79.02 Long term (current) use of antithrombotics/antiplatelets; Z79.899 Other long term (current) drug therapy; Z79.4 Long term (current) use of insulin; Z88.6 Allergy status to analgesic agent; Z88.8 Allergy status to other drugs, medicaments and biological substances; Z91.030 Bee allergy status; Z88.2 Allergy status to sulfonamides; Z91.048 Other nonmedicinal substance allergy status; Z86.73 Personal history of transient ischemic attack (TIA), and cerebral infarction without residual deficits; Z95.5 Presence of coronary angioplasty implant and graft; W01.0XXA Fall on same level from slipping, tripping and stumbling without subsequent striking against object, initial encounter
CPT/HCPCS: 99283

== ENCOUNTER 2016-04-10 22:27 | Emergency (ER) | payer OTHER ==
[2016-04-10] MEDS ORDERED: SODIUM CHLORIDE 0.9% 500 ML IV STA (22:39)
[2016-04-10] MEDS ORDERED: ASPIRIN 81 MG CHEW PO STA (22:39)
[2016-04-10] MEDS ORDERED: MAG HYDROX/AL HYDROX/SIMETH 30 ML, HYOSCYAMINE ELIXIR 10 ML, CIMETIDINE HCL 300 MG PO STA ×3 (22:40)
--- NOTE | 2016-04-10 22:42 | ED ---
Chest Pain HPI - General Source: patient, RN notes reviewed Mode of arrival: wheelchair Limitations: no limitations <Sita Nelson - Last Filed: 04/11/16 00:01> <Rodolfo Posada - Last Filed: 04/11/16 00:23> - General Chief Complaint: Chest Pain Stated Complaint: Chest Pain Time Seen by Provider: 04/10/16 22:35 - History of Present Illness Initial Comments: 55-year-old female presents to the emergency department with a chief complaint of chest pressure. Patient states she would not eat had a hamburger today. Patient states she then developed some chest pressure. Patient does admit to history of heart attack in the past. Patient states she has no shortness breath no nausea or vomiting with this. Patient states recently had a stress test that was negative. Patient states that she is tenderness associated with food but with a heart history and the pain being so bad she thought maybe it was related to her heart. Patient denies any fever chills with this. Patient states that she is not currently having any other symptoms at this time. Patient denies any recent fever, chills, shortness of breath, back pain, abdominal pain, nausea vomiting, numbness or tingling, dysuria or hematuria, constipation or diarrhea, headaches or visual changes, or any other current symptoms. (Sita Nelson) - Related Data Home Medications Medication Instructions Recorded Confirmed Clopidogrel Bisulfate [Plavix] 75 mg PO DAILY 06/11/13 04/10/16 Diltiazem Cd [Cardizem CD] 240 mg PO DAILY 06/11/13 04/10/16 ALPRAZolam [Xanax] 0.25 mg PO TID PRN 09/27/14 04/10/16 Albuterol Inhaler [Ventolin Hfa 2 puff INHALATION RT-Q6H PRN 09/27/14 04/10/16 Inhaler] Pantoprazole Sodium [Protonix] 40 mg PO BID 04/05/15 04/10/16 Albuterol Nebulized [Ventolin 2.5 mg INHALATION RT-Q6H PRN 05/07/15 04/10/16 Nebulized] Metoprolol Tartrate [Lopressor] 25 mg PO BID 05/07/15 04/10/16 Insulin Glargine [Lantus] 50 unit SQ BID 08/26/15 04/10/16 Insulin Glulisine [Apidra Solostar] See Protocol SQ TID 08/26/15 04/10/16 Topiramate [Topamax] 25 mg PO BID 10/09/15 04/10/16 Atorvastatin [Lipitor] 40 mg PO DAILY 10/21/15 04/10/16 Losartan Potassium [Cozaar] 25 mg PO DAILY 02/07/16 04/10/16 Topiramate [Topamax] 50 mg PO BID 03/04/16 04/10/16 Ranitidine HCl [Zantac] 150 mg PO BID 04/07/16 04/10/16 Previous Rx's Medication Instructions Recorded Aspirin 325 mg PO DAILY tab 10/11/15 Nitroglycerin Sl Tabs [Nitrostat] 0.4 mg SUBLINGUAL Q5M PRN #25 tab 10/11/15 Hydrocortisone Cream 1 applic TOPICAL TID #1 cream..g. 03/19/16 [Hydrocortisone 1% Cream] diphenhydrAMINE [Benadryl] 1 - 2 tab PO Q6HR PRN #30 capsule 03/19/16 Allergies Allergy/AdvReac Type Severity Reaction Status Date / Time adhesive tape Allergy Rash/Hives Verified 04/10/16 22:32 indomethacin Allergy Unknown Verified 04/10/16 22:32 insulin glargine Allergy Rash/Hives Verified 04/10/16 22:32 [From Basaglar KwikPen] ipratropium bromide Allergy Unknown Verified 04/10/16 22:32 [From Atrovent] ketorolac tromethamine Allergy Anaphylaxis Verified 04/10/16 22:32 [From Toradol] naproxen [From Naprosyn] Allergy Itching Verified 04/10/16 22:32 Sulfa (Sulfonamide Allergy Anaphylaxis Verified 04/10/16 22:32 Antibiotics) sulfamethoxazole Allergy Unknown Verified 04/10/16 22:32 [From Bactrim] tramadol Allergy Unknown Verified 04/10/16 22:32 trimethoprim [From Bactrim] Allergy Unknown Verified 04/10/16 22:32 venom-honey bee Allergy Anaphylaxis Verified 04/10/16 22:32 [bee venom (honey bee)] budesonide [From Symbicort] AdvReac Vomiting Verified 04/10/16 22:32 formoterol fumarate AdvReac Vomiting Verified 04/10/16 22:32 [From Symbicort] sucralose AdvReac Rapid Verified 04/10/16 22:32 [From Splenda (sucralose)] Heart Rate tramadol HCl [From Ultram] AdvReac SEIZURES Verified 04/10/16 22:32 Review of Systems ROS Other: All systems not noted in ROS Statement are negative. <Sita Nelson - Last Filed: 04/11/16 00:01> ROS Other: All systems not noted in ROS Statement are negative. <Rodolfo Posada - Last Filed: 04/11/16 00:23> ROS Statement: Those systems with pertinent positive or pertinent negative responses have been documented in the HPI. EKG Findings - EKG Comments: EKG Findings:: normal sinus rhythm 74 bpm, normal axis, no atopy, no S-T depressions or elevations, <Sita Nelson - Last Filed: 04/11/16 00:01> Past Medical History Past Medical History: Coronary Artery Disease (CAD), Cancer, COPD, CVA/TIA, Diabetes Mellitus, GERD/Reflux, Hypertension Additional Past Medical History / Comment(s): HX: acute renal problem, neuropathy, CERVICAL CA. Perthes's dx affected short term memory. bilateral glaucoma.recent fall injured pinky finger rt hand. Last Myocardial Infarction Date:: 2001 or 2003 History of Any Multi-Drug Resistant Organisms: None Reported Past Surgical History: Cholecystectomy, Coronary Bypass/CABG, Heart Catheterization With Stent, Orthopedic Surgery Additional Past Surgical History / Comment(s): LEFT HIP ARTHOPLASTY. ORIF RIGHT ANKLE. Cervical cancer surgies. BILATERAL LASER EYE TX FOR GLAUCOMA. Laproscopy. TSS. stent to LAD in 10/2015 Past Anesthesia/Blood Transfusion Reactions: No Reported Reaction Date of Last Stent Placement:: 10/2015 Past Psychological History: Anxiety Additional Psychological History / Comment(s): Pt is disabled-SSI. She is independent and drives a car. Smoking Status: Never smoker Past Alcohol Use History: None Reported Additional Past Alcohol Use History / Comment(s): Pt was an alcoholic and has not drank since 1984 except for one bout of drinking in 2000. Past Drug Use History: None Reported - Past Family History Father History Unknown: Yes Family Medical History: COPD, Renal Disease Additional Family Medical History / Comment(s): Father at age 80yrs. of COPD and kidney faiilure. Mother History Unknown: Yes Family Medical History: Diabetes Mellitus Additional Family Medical History / Comment(s): Mother of diabetes at age 55 yrs. <Sita Nelson - Last Filed: 04/11/16 00:01> General Exam Limitations: no limitations <Sita Nelson - Last Filed: 04/11/16 00:01> <Rodolfo Posada - Last Filed: 04/11/16 00:23> - General Exam Comments Initial Comments: General: The patient is awake and alert, in no distress, and does not appear acutely ill. Eye: Pupils are equal, round and reactive to light, extra-ocular movements are intact; there is normal conjunctiva bilaterally. No signs of icterus. Ears, nose, mouth and throat: There are moist mucous membranes. Neck: The neck is supple, there is no tenderness. Cardiovascular: There is a regular rate and rhythm. No murmur, rub or gallop is appreciated. Respiratory: Lungs are clear to auscultation, respirations are non-labored, breath sounds are equal. No wheezes, stridor, rales, or rhonchi. Gastrointestinal: Soft, non-distended, non-tender abdomen without masses or organomegaly noted. There is no rebound or guarding present. No CVA tenderness. Bowel sounds are unremarkable. Back: There is no tenderness to palpation in the midline. There is no obvious deformity. No rashes noted. Musculoskeletal: Normal ROM, no tenderness, There is no pedal edema. There is no calf tenderness or swelling. Sensation intact. Pulses equal bilaterally 2+. Neurological: CN II-XII intact, There are no obvious motor or sensory deficits. Coordination appears grossly intact. Speech is normal. Skin: Skin is warm and dry and no rashes or lesions are noted. Psychiatric: Cooperative, appropriate mood & affect, normal judgment. (Sita Nelson) Course <Sita Nelson - Last Filed: 04/11/16 00:01> <Rodolfo Posada - Last Filed: 04/11/16 00:23> Vital Signs 04/10/16 22:29 Temperature 98.2 F Pulse Rate 89 Respiratory 20 Rate Blood Pressure 204/93 O2 Sat by Pulse 98 Oximetry - Reevaluation(s) Reevaluation #1: 04/11/16 00:23 Patient's case was evaluated patient will be admitted for evaluation of chest pain. (Rodolfo Posada) Chest Pain [facility] <Sita Nelson - Last Filed: 04/11/16 00:01> <Rodolfo Posada - Last Filed: 04/11/16 00:23> - [facility] 55-year-old female presents emergency Department chief complaint of chest pain. Even after the GI cocktail patient continues to have some chest discomfort. We will admit the patient for ACS rule out due to her long history of cardiac disease and multiple risk factors. We will start heparin for the patient as well as appointment. Patient is in agreement plan all questions have been answered. The patient will be admitted to Dr. Danish luis. (Sita Nelson) Disposition Time of Disposition: 00:02 Decision Date: 04/11/16 Decision Time: 00:02 <Sita Nelson - Last Filed: 04/11/16 00:01> <Rodolfo Posada - Last Filed: 04/11/16 00:23> Clinical Impression: Unstable angina Disposition: ADMITTED IP TO THIS [facility] Condition: Stable
[2016-04-10 23:16] LABS: Basophils % (A) 0 %; CH 29.2; Eosinophils # (A) 0.2 k/uL (0-0.7); Eosinophils % (A) 2 %; HCT 39.3 % (34.0-46.0); HDW 3.19; Luc # (Auto) 0.23; Luc % (Auto) 3; Lymphocytes % (A) 21 %; MCH 28.5 pg (25.0-35.0); MCV 86.4 fL (80.0-100.0); Mean Platelet Volume 7.7; Monocytes # (A) 0.4 k/uL (0-1.0); Monocytes % (A) 4 %; Neutrophils # (A) 6.4 k/uL (1.3-7.7); Neutrophils % (A) 69 %; RBC 4.55 m/uL (3.80-5.40); RDW 14.4 % (11.5-15.5); WBC 9.2 k/uL (3.8-10.6); WBC (Perox) 9.32
[2016-04-10 23:26] LABS: ALT 32 U/L (9-52); AST 19 U/L (14-36); Alkaline Phosphatase 156 U/L (38-126); Anion Gap 10 mmol/L; Blood Urea Nitrogen 13 mg/dL (7-17); Calcium 9.1 mg/dL (8.4-10.2); Carbon Dioxide 26 mmol/L (22-30); Chloride 109 mmol/L (98-107); Glucose 157 mg/dL (74-99); Magnesium 1.6 mg/dL (1.6-2.3); Non-African American GFR(MDRD) 58 (>60 ml/min/1.73 sqM); Potassium 3.8 mmol/L (3.5-5.1); Sodium 145 mmol/L (137-145); Total Bilirubin 0.5 mg/dL (0.2-1.3); Total Protein 6.7 g/dL (6.3-8.2)
[2016-04-10 23:36] LABS: Partial Thromboplastin Time 25.1 sec (22.0-30.0); Prothrombin Time 10.5 sec (9.0-12.0)
[2016-04-10 23:38] LABS: Creatine Kinase 120 U/L (30-135)
--- NOTE | 2016-04-10 23:50 | XR ---
EXAM: XR Chest, 2 Views. CLINICAL HISTORY: Reason: Chest Pain TECHNIQUE: Frontal and lateral views of the chest. COMPARISON: Chest radiographs 02/07/16 FINDINGS: Lungs: Lungs are clear. Pleural space: Unremarkable. No pneumothorax. Heart: Heart size and mediastinal structures are within normal limits. Mediastinum: Unremarkable. Bones/joints: Previous median sternotomy. Other findings: No significant change since 02/07/2016. IMPRESSION: No evidence of active chest disease.
[2016-04-10 23:51] LABS: Creatine Kinase MB 2.3 ng/mL (0.0-2.4); Troponin I <0.012 ng/mL (0.000-0.034)
[2016-04-11] MEDS ORDERED: HEPARIN SODIUM,PORCINE 5,000 UNIT/ML 1 ML VIAL IV ONE (00:02)
[2016-04-11] MEDS ORDERED: NITROGLYCERIN SL TABS 0.4 MG TAB SUBLINGUAL PRN ×2 (00:02→00:03)
[2016-04-11] MEDS ORDERED: ALPRAZolam 0.25 MG TAB PO PRN (00:03)
[2016-04-11] MEDS ORDERED: ALBUTEROL NEBULIZED 2.5 MG/3 ML INHALATION PRN ×2 (00:03)
[2016-04-11] MEDS ORDERED: METOCLOPRAMIDE 5 MG/ML 2 ML VIAL IVP STA (00:05)
[2016-04-11] MEDS ORDERED: HEPARIN SODIUM,PORCINE/D5W PMX 25,000 UNIT in DEXTROSE/WATER 1 500ML.BAG IV SCH (00:15)
[2016-04-11 00:36] VITALS: RESP 18
--- NOTE | 2016-04-11 00:38 | ED ---
Medical Decision Making - Medical Decision Making While in the emergency department before being transferred to the observation floor the patient decided that she wanted to go home. She states that she is feeling better her pain is completely resolved. Patient has already refused all care and all medications. At this time the patient has decided to leave AMA. We discussed the risk of with this we discussed this could still be a heart attack. We did discuss the patient's choice. Patient states she does not want to stay she does not like to be admitted. We'll have the patient sign out AGAINST MEDICAL ADVICE knowing that she has been informed of the risks. - Lab Data Result diagrams: 04/10/16 23:00 04/10/16 23:00 Lab Results 04/10/16 04/10/16 04/10/16 Range/Units 23:00 23:00 23:00 WBC 9.2 (3.8-10.6) k/uL RBC 4.55 (3.80-5.40) m/uL Hgb 13.0 (11.4-16.0) gm/dL Hct 39.3 (34.0-46.0) % MCV 86.4 (80.0-100.0) fL MCH 28.5 (25.0-35.0) pg MCHC 33.0 (31.0-37.0) g/dL RDW 14.4 (11.5-15.5) % Plt Count 226 (150-450) k/uL Neutrophils % 69 % Lymphocytes % 21 % Monocytes % 4 % Eosinophils % 2 % Basophils % 0 % Neutrophils # 6.4 (1.3-7.7) k/uL Lymphocytes # 2.0 (1.0-4.8) k/uL Monocytes # 0.4 (0-1.0) k/uL Eosinophils # 0.2 (0-0.7) k/uL Basophils # 0.0 (0-0.2) k/uL PT (9.0-12.0) sec INR (<1.1) APTT (22.0-30.0) sec Sodium 145 (137-145) mmol/L Potassium 3.8 (3.5-5.1) mmol/L Chloride 109 H (98-107) mmol/L Carbon Dioxide 26 (22-30) mmol/L Anion Gap 10 mmol/L BUN 13 (7-17) mg/dL Creatinine 1.00 (0.52-1.04) mg/dL Est GFR (MDRD) Af Amer >60 (>60 ml/min/1.73 sqM) Est GFR (MDRD) Non-Af 58 (>60 ml/min/1.73 sqM) Glucose 157 H (74-99) mg/dL Calcium 9.1 (8.4-10.2) mg/dL Magnesium 1.6 (1.6-2.3) mg/dL Total Bilirubin 0.5 (0.2-1.3) mg/dL AST 19 (14-36) U/L ALT 32 (9-52) U/L Alkaline Phosphatase 156 H (38-126) U/L Total Creatine Kinase 120 (30-135) U/L CK-MB (CK-2) 2.3 (0.0-2.4) ng/mL CK-MB (CK-2) Rel Index 1.9 Troponin I <0.012 (0.000-0.034) ng/mL Total Protein 6.7 (6.3-8.2) g/dL Albumin 3.6 (3.5-5.0) g/dL 04/10/16 Range/Units 23:00 WBC (3.8-10.6) k/uL RBC (3.80-5.40) m/uL Hgb (11.4-16.0) gm/dL Hct (34.0-46.0) % MCV (80.0-100.0) fL MCH (25.0-35.0) pg MCHC (31.0-37.0) g/dL RDW (11.5-15.5) % Plt Count (150-450) k/uL Neutrophils % % Lymphocytes % % Monocytes % % Eosinophils % % Basophils % % Neutrophils # (1.3-7.7) k/uL Lymphocytes # (1.0-4.8) k/uL Monocytes # (0-1.0) k/uL Eosinophils # (0-0.7) k/uL Basophils # (0-0.2) k/uL PT 10.5 (9.0-12.0) sec INR 1.0 (<1.1) APTT 25.1 (22.0-30.0) sec Sodium (137-145) mmol/L Potassium (3.5-5.1) mmol/L Chloride (98-107) mmol/L Carbon Dioxide (22-30) mmol/L Anion Gap mmol/L BUN (7-17) mg/dL Creatinine (0.52-1.04) mg/dL Est GFR (MDRD) Af Amer (>60 ml/min/1.73 sqM) Est GFR (MDRD) Non-Af (>60 ml/min/1.73 sqM) Glucose (74-99) mg/dL Calcium (8.4-10.2) mg/dL Magnesium (1.6-2.3) mg/dL Total Bilirubin (0.2-1.3) mg/dL AST (14-36) U/L ALT (9-52) U/L Alkaline Phosphatase (38-126) U/L Total Creatine Kinase (30-135) U/L CK-MB (CK-2) (0.0-2.4) ng/mL CK-MB (CK-2) Rel Index Troponin I (0.000-0.034) ng/mL Total Protein (6.3-8.2) g/dL Albumin (3.5-5.0) g/dL Disposition Clinical Impression: Unstable angina Disposition: Left Against Medical Advice Condition: Stable
[2016-04-11 00:51] VITALS: BP 140/70; PULSE 64; TEMP 97.2
[2016-04-11] MEDS ORDERED: NITROGLYCERIN OINT 1 INCH/GM PACKET TOPICAL SCH (06:00)
[2016-04-11] MEDS ORDERED: INSULIN LISPRO (humaLOG) 300 UNIT/3 ML VIAL SQ SCH (07:30)
[2016-04-11] MEDS ORDERED: PANTOPRAZOLE 40 MG TABLET PO SCH (09:00)
[2016-04-11] MEDS ORDERED: DILTIAZEM CD 240 MG CAP.ER.24H PO SCH (09:00)
[2016-04-11] MEDS ORDERED: TOPIRAMATE 25 MG TAB PO SCH ×2 (09:00)
[2016-04-11] MEDS ORDERED: HYDROCORTISONE 1% CREAM 30 GM TUBE TOPICAL SCH (09:00)
[2016-04-11] MEDS ORDERED: FAMOTIDINE 20 MG TAB PO SCH (09:00)
[2016-04-11] MEDS ORDERED: ATORVASTATIN 40 MG TAB PO SCH (09:00)
[2016-04-11] MEDS ORDERED: LOSARTAN 25 MG TAB PO SCH (09:00)
[2016-04-11] MEDS ORDERED: METOPROLOL TARTRATE 25 MG TAB PO SCH (09:00)
[2016-04-11] MEDS ORDERED: CLOPIDOGREL 75 MG TAB PO SCH (09:00)
[2016-04-12] MEDS ORDERED: ASPIRIN 325 MG TAB PO SCH (09:00)
== END 2016-04-11 00:51 | disposition left against medical advice (07) ==
LOC: EC 22:27 → UNDOADMOB 04-11 00:02 → 3OBS 04-11 00:02 → EC 04-11 00:51
DX: I20.0 Unstable angina (principal); I25.10 Atherosclerotic heart disease of native coronary artery without angina pectoris; I10 Essential (primary) hypertension; I25.2 Old myocardial infarction; G62.9 Polyneuropathy, unspecified; E11.9 Type 2 diabetes mellitus without complications; K21.9 Gastro-esophageal reflux disease without esophagitis; Z88.2 Allergy status to sulfonamides; Z88.8 Allergy status to other drugs, medicaments and biological substances; Z88.5 Allergy status to narcotic agent; Z95.5 Presence of coronary angioplasty implant and graft; Z88.6 Allergy status to analgesic agent; Z95.1 Presence of aortocoronary bypass graft; Z79.4 Long term (current) use of insulin; Z79.82 Long term (current) use of aspirin; Z86.73 Personal history of transient ischemic attack (TIA), and cerebral infarction without residual deficits; Z79.02 Long term (current) use of antithrombotics/antiplatelets; Z91.030 Bee allergy status; Z91.048 Other nonmedicinal substance allergy status; Z79.899 Other long term (current) drug therapy
CPT/HCPCS: 36415; 71020; 80053; 82550; 82553; 83735; 84484; 85025; 85610; 85730; 93005; 96360; 99285

== ENCOUNTER → 2016-04-15 | Outpatient (CLI) | payer OTHER ==
[2016-04-15 12:21] LABS: ALT 35 U/L (9-52); AST 25 U/L (14-36); Alkaline Phosphatase 155 U/L (38-126); Anion Gap 11 mmol/L; Blood Urea Nitrogen 11 mg/dL (7-17); C Reactive Protein 10.8 mg/L (<10.0); Calcium 9.1 mg/dL (8.4-10.2); Carbon Dioxide 27 mmol/L (22-30); Chloride 108 mmol/L (98-107); Creatine Kinase 81 U/L (30-135); Glucose 99 mg/dL (74-99); Iron 37 ug/dL (37-170); Magnesium 1.5 mg/dL (1.6-2.3); Non-African American GFR(MDRD) >60 (>60 ml/min/1.73 sqM); Sodium 146 mmol/L (137-145); Total Bilirubin 0.6 mg/dL (0.2-1.3); Total Protein 7.1 g/dL (6.3-8.2)
[2016-04-15 12:27] LABS: CH 29.2; CHCM 34.1; HCT 39.5 % (34.0-46.0); HDW 3.22; HGB 13.2 gm/dL (11.4-16.0); MCH 28.7 pg (25.0-35.0); MCHC 33.3 g/dL (31.0-37.0); MCV 86.1 fL (80.0-100.0); Mean Platelet Volume 7.8; RBC 4.59 m/uL (3.80-5.40); RDW 14.3 % (11.5-15.5); WBC 9.1 k/uL (3.8-10.6)
[2016-04-15 13:07] LABS: Vitamin B12 514 pg/mL (239-931)
[2016-04-15 14:26] LABS: Hemoglobin A1C 7.7 % (4.2-6.1)
[2016-04-15 14:52] LABS: Erythrocyte Sedimentation Rate 37 mm/hr (0-20)
[2016-04-17 06:50] LABS: Vitamin E (Alpha Tocopherol) 730 ug/dL (500-1800)
[2016-04-23 22:37] LABS: Vitamin K 384 pg/mL (80-1160)
[2016-04-27 08:47] LABS: Mis test requested (Blood) Niacin (Vit B3)
== END | disposition home or self-care (01) ==
LOC: LABWHC1 11:08
PROVIDERS: ATTEND Psychiatry & Neurology Pain Medicine
DX: G89.29 Other chronic pain (principal); R53.83 Other fatigue
CPT/HCPCS: 36415; 80053; 82306; 82550; 82607; 83036; 83519; 83540; 83735; 84207; 84425; 84439; 84443; 84446; 84481; 84590; 84591; 84597; 85027; 85652; 86140

== ENCOUNTER 2016-05-07 21:34 | Emergency (ER) | payer OTHER ==
[2016-05-07 21:39] VITALS: BP 135/76; PULSE 73; RESP 18; TEMP 97.4
[2016-05-07] MEDS ORDERED: NYSTATIN 100,000 UNIT/GM POWD 15 GM TOPICAL STA (21:57)
--- NOTE | 2016-05-07 22:03 | ED ---
Skin/Abscess/FB HPI - General Chief complaint: Skin/Abscess/Foreign Body Stated complaint: rash on stomach Time Seen by Provider: 05/07/16 21:53 Source: patient, RN notes reviewed Mode of arrival: ambulatory Limitations: no limitations - History of Present Illness Initial comments: 55-year-old female presents to emergency department with a chief complaint of a yeast infection. Patient has a history of yeast infection patient normally uses nystatin powder however she ran out and she is here for refill. Patient states he subsequently, normal yeast. Patient denies any fever chills cough cold runny nose. Patient denies any other symptoms.Patient denies any recent fever, chills, shortness of breath, chest pain, back pain, abdominal pain, nausea vomiting, numbness or tingling, dysuria or hematuria, constipation or diarrhea, headaches or visual changes, or any other current symptoms. - Related Data Home Medications Medication Instructions Recorded Confirmed Clopidogrel Bisulfate [Plavix] 75 mg PO DAILY 06/11/13 05/07/16 Diltiazem Cd [Cardizem CD] 240 mg PO DAILY 06/11/13 05/07/16 ALPRAZolam [Xanax] 0.25 mg PO TID PRN 09/27/14 05/07/16 Albuterol Inhaler [Ventolin Hfa 2 puff INHALATION RT-Q6H PRN 09/27/14 05/07/16 Inhaler] Pantoprazole Sodium [Protonix] 40 mg PO BID 04/05/15 05/07/16 Albuterol Nebulized [Ventolin 2.5 mg INHALATION RT-Q6H PRN 05/07/15 05/07/16 Nebulized] Metoprolol Tartrate [Lopressor] 25 mg PO BID 05/07/15 05/07/16 Insulin Glargine [Lantus] 50 unit SQ BID 08/26/15 05/07/16 Topiramate [Topamax] 25 mg PO BID 10/09/15 05/07/16 Atorvastatin [Lipitor] 40 mg PO DAILY 10/21/15 05/07/16 Losartan Potassium [Cozaar] 25 mg PO DAILY 02/07/16 05/07/16 Topiramate [Topamax] 50 mg PO BID 03/04/16 05/07/16 Ranitidine HCl [Zantac] 150 mg PO BID 04/07/16 05/07/16 diphenhydrAMINE [Benadryl] 1 - 2 tab PO HS 05/07/16 05/07/16 Previous Rx's Medication Instructions Recorded Aspirin 325 mg PO DAILY tab 10/11/15 Nitroglycerin Sl Tabs [Nitrostat] 0.4 mg SUBLINGUAL Q5M PRN #25 tab 10/11/15 Hydrocortisone Cream 1 applic TOPICAL TID #1 cream..g. 03/19/16 [Hydrocortisone 1% Cream] Nystatin 100,000 Unit/gm Powd 1 applic TOPICAL TID 30 Days 05/07/16 [Mycostatin Powder] Allergies Allergy/AdvReac Type Severity Reaction Status Date / Time adhesive tape Allergy Rash/Hives Verified 05/07/16 21:55 indomethacin Allergy Unknown Verified 05/07/16 21:55 insulin glargine Allergy Rash/Hives Verified 05/07/16 21:55 [From Basaglar KwikPen] ipratropium bromide Allergy Unknown Verified 05/07/16 21:55 [From Atrovent] ketorolac tromethamine Allergy Anaphylaxis Verified 05/07/16 21:55 [From Toradol] naproxen [From Naprosyn] Allergy Itching Verified 05/07/16 21:55 pregabalin [From Lyrica] Allergy Unknown Verified 05/07/16 21:55 Sulfa (Sulfonamide Allergy Anaphylaxis Verified 05/07/16 21:55 Antibiotics) sulfamethoxazole Allergy Unknown Verified 05/07/16 21:55 [From Bactrim] tramadol Allergy Unknown Verified 05/07/16 21:55 trimethoprim [From Bactrim] Allergy Unknown Verified 05/07/16 21:55 venom-honey bee Allergy Anaphylaxis Verified 05/07/16 21:55 [bee venom (honey bee)] budesonide [From Symbicort] AdvReac Vomiting Verified 05/07/16 21:55 formoterol fumarate AdvReac Vomiting Verified 05/07/16 21:55 [From Symbicort] sucralose AdvReac Rapid Verified 05/07/16 21:55 [From Splenda (sucralose)] Heart Rate tramadol HCl [From Ultram] AdvReac SEIZURES Verified 05/07/16 21:55 Review of Systems ROS Statement: Those systems with pertinent positive or pertinent negative responses have been documented in the HPI. ROS Other: All systems not noted in ROS Statement are negative. Past Medical History Past Medical History: Coronary Artery Disease (CAD), Cancer, COPD, CVA/TIA, Diabetes Mellitus, GERD/Reflux, Hypertension Additional Past Medical History / Comment(s): HX: acute renal problem, neuropathy, CERVICAL CA. Perthes's dx affected short term memory. bilateral glaucoma.recent fall injured pinky finger rt hand. Last Myocardial Infarction Date:: 2001 or 2003 History of Any Multi-Drug Resistant Organisms: None Reported Past Surgical History: Cholecystectomy, Coronary Bypass/CABG, Heart Catheterization With Stent, Orthopedic Surgery Additional Past Surgical History / Comment(s): LEFT HIP ARTHOPLASTY. ORIF RIGHT ANKLE. Cervical cancer surgies. BILATERAL LASER EYE TX FOR GLAUCOMA. Laproscopy. TSS. stent to LAD in 10/2015 Past Anesthesia/Blood Transfusion Reactions: No Reported Reaction Date of Last Stent Placement:: 10/2015 Past Psychological History: Anxiety Additional Psychological History / Comment(s): Pt is disabled-SSI. She is independent and drives a car. Smoking Status: Never smoker Past Alcohol Use History: None Reported Additional Past Alcohol Use History / Comment(s): Pt was an alcoholic and has not drank since 1984 except for one bout of drinking in 2000. Past Drug Use History: None Reported - Past Family History Father History Unknown: Yes Family Medical History: COPD, Renal Disease Additional Family Medical History / Comment(s): Father at age 80yrs. of COPD and kidney faiilure. Mother History Unknown: Yes Family Medical History: Diabetes Mellitus Additional Family Medical History / Comment(s): Mother of diabetes at age 55 yrs. General Exam Limitations: no limitations General appearance: alert, in no apparent distress Head exam: Present: atraumatic, normocephalic, normal inspection Neck exam: Present: normal inspection. Absent: tenderness, meningismus, lymphadenopathy Respiratory exam: Present: normal lung sounds bilaterally. Absent: respiratory distress, wheezes, rales, rhonchi, stridor Cardiovascular Exam: Present: regular rate, normal rhythm, normal heart sounds. Absent: systolic murmur, diastolic murmur, rubs, gallop, clicks Neurological exam: Present: alert, oriented X3, CN II-XII intact. Absent: motor sensory deficit Psychiatric exam: Present: normal affect, normal mood Skin exam: Present: warm, dry, intact, rash (Patient appears to have a red and thickened area that looks can feel underneath the left breast and in the lower pelvic area) Course Vital Signs 05/07/16 21:36 Temperature 97.4 F L Pulse Rate 73 Respiratory 18 Rate Blood Pressure 135/76 O2 Sat by Pulse 99 Oximetry Medical Decision Making - Medical Decision Making 55-year-old female presents emergency Department with a chief complaint of what appears to be a candidial type infection. At this time we will give the prescription prescription for nystatin powder. We discussed care we discussed comparison follow-up. We discussed all patient's questions. She stated that she understood the plan. She will be discharged. Disposition Clinical Impression: Candidal skin infection Disposition: HOME SELF-CARE Condition: Stable Instructions: Skin Yeast Infection (ED) Additional Instructions: Please use medication as discussed. Please follow up with family doctor if symptoms have not improved over the next two days. Please return to the emergency room if your symptoms increase or worsen or for any other concerns. Prescriptions: Nystatin 100,000 Unit/gm Powd [Mycostatin Powder] 1 applic TOPICAL TID 30 Days Referrals: None,Stated [Primary Care Provider] - 1-2 days Dee Dee Penaloza MD [STAFF PHYSICIAN] - 1-2 days Time of Disposition: 22:02
== END 2016-05-07 22:29 | disposition home or self-care (01) ==
LOC: EC 21:34
DX: B37.2 Candidiasis of skin and nail (principal); K21.9 Gastro-esophageal reflux disease without esophagitis; I25.10 Atherosclerotic heart disease of native coronary artery without angina pectoris; I10 Essential (primary) hypertension; E11.9 Type 2 diabetes mellitus without complications; Z79.4 Long term (current) use of insulin; Z79.82 Long term (current) use of aspirin; Z79.02 Long term (current) use of antithrombotics/antiplatelets; Z79.899 Other long term (current) drug therapy; Z88.6 Allergy status to analgesic agent; Z88.1 Allergy status to other antibiotic agents; Z88.2 Allergy status to sulfonamides; Z88.8 Allergy status to other drugs, medicaments and biological substances; Z91.048 Other nonmedicinal substance allergy status; Z86.73 Personal history of transient ischemic attack (TIA), and cerebral infarction without residual deficits; Z95.5 Presence of coronary angioplasty implant and graft; Z85.41 Personal history of malignant neoplasm of cervix uteri
CPT/HCPCS: 99282

== ENCOUNTER 2016-05-09 23:35 | Emergency (ER) | payer OTHER ==
[2016-05-09 23:43] VITALS: TEMP 97.6
[2016-05-10] MEDS ORDERED: SODIUM CHLORIDE 0.9% 1,000 ML IV STA (00:19)
--- NOTE | 2016-05-10 00:26 | ED ---
Neuro HPI - General Source: patient, family, RN notes reviewed, old records reviewed Mode of arrival: ambulatory Limitations: no limitations - History of Present Illness Is the patient presenting with stroke symptoms?: No <Rodolfo Posada - Last Filed: 05/10/16 00:22> <Lucien Morse - Last Filed: 05/10/16 02:40> - General Chief Complaint: Neuro Symptoms/Deficit Stated Complaint: Face Tingling,Stuttering Time Seen by Provider: 05/09/16 23:53 - History of Present Illness Initial Comments: This is a 55-year-old female history of multiple medical problems including peripheral neuropathy who states about 10 PM today she started feeling numbness and tingling to her face. She also states she started stuttering. She was thinking she may be having a strokelike presentation. She presents to the emergency department very anxious. She denies any headache focal deficits or other symptoms she did apparently have about a 4 day period where she did not eat because of her medication she states she did eat yesterday however. She states she always drinks water she denies any dizziness fevers chills nausea vomiting sweats. She did not think stress can cause that she is moving also found out her azprldy-dr-dma his neck and began will get a heart transplant as was hoped. (Rodolfo Posada) - Related Data Home Medications: Home Medications Medication Instructions Recorded Confirmed Clopidogrel Bisulfate [Plavix] 75 mg PO DAILY 06/11/13 05/09/16 Diltiazem Cd [Cardizem CD] 240 mg PO DAILY 06/11/13 05/09/16 ALPRAZolam [Xanax] 0.25 mg PO TID PRN 09/27/14 05/09/16 Albuterol Inhaler [Ventolin Hfa 2 puff INHALATION RT-Q6H PRN 09/27/14 05/09/16 Inhaler] Pantoprazole Sodium [Protonix] 40 mg PO BID 04/05/15 05/09/16 Albuterol Nebulized [Ventolin 2.5 mg INHALATION RT-Q6H PRN 05/07/15 05/09/16 Nebulized] Metoprolol Tartrate [Lopressor] 25 mg PO BID 05/07/15 05/09/16 Insulin Glargine [Lantus] 50 unit SQ BID 08/26/15 05/09/16 Topiramate [Topamax] 25 mg PO BID 10/09/15 05/09/16 Atorvastatin [Lipitor] 40 mg PO DAILY 10/21/15 05/09/16 Losartan Potassium [Cozaar] 25 mg PO DAILY 02/07/16 05/09/16 Topiramate [Topamax] 50 mg PO BID 03/04/16 05/09/16 Ranitidine HCl [Zantac] 150 mg PO BID 04/07/16 05/09/16 diphenhydrAMINE [Benadryl] 1 - 2 tab PO HS 05/07/16 05/09/16 Previous Rx's Medication Instructions Recorded Aspirin 325 mg PO DAILY tab 10/11/15 Nitroglycerin Sl Tabs [Nitrostat] 0.4 mg SUBLINGUAL Q5M PRN #25 tab 10/11/15 Hydrocortisone Cream 1 applic TOPICAL TID #1 cream..g. 03/19/16 [Hydrocortisone 1% Cream] Nystatin 100,000 Unit/gm Powd 1 applic TOPICAL TID 30 Days 05/07/16 [Mycostatin Powder] Magnesium Oxide 400 mg PO DAILY #20 tablet 05/10/16 Allergies/Adverse Reactions: Allergies Allergy/AdvReac Type Severity Reaction Status Date / Time adhesive tape Allergy Rash/Hives Verified 05/09/16 23:44 indomethacin Allergy Unknown Verified 05/09/16 23:44 insulin glargine Allergy Rash/Hives Verified 05/09/16 23:44 [From Basaglar KwikPen] ipratropium bromide Allergy Unknown Verified 05/09/16 23:44 [From Atrovent] ketorolac tromethamine Allergy Anaphylaxis Verified 05/09/16 23:44 [From Toradol] naproxen [From Naprosyn] Allergy Itching Verified 05/09/16 23:44 pregabalin [From Lyrica] Allergy Unknown Verified 05/09/16 23:44 Sulfa (Sulfonamide Allergy Anaphylaxis Verified 05/09/16 23:44 Antibiotics) sulfamethoxazole Allergy Unknown Verified 05/09/16 23:44 [From Bactrim] tramadol Allergy Unknown Verified 05/09/16 23:44 trimethoprim [From Bactrim] Allergy Unknown Verified 05/09/16 23:44 venom-honey bee Allergy Anaphylaxis Verified 05/09/16 23:44 [bee venom (honey bee)] budesonide [From Symbicort] AdvReac Vomiting Verified 05/09/16 23:44 formoterol fumarate AdvReac Vomiting Verified 05/09/16 23:44 [From Symbicort] sucralose AdvReac Rapid Verified 05/09/16 23:44 [From Splenda (sucralose)] Heart Rate tramadol HCl [From Ultram] AdvReac SEIZURES Verified 05/09/16 23:44 Review of Systems ROS Other: All systems not noted in ROS Statement are negative. <Rodolfo Posada - Last Filed: 05/10/16 00:22> ROS Other: All systems not noted in ROS Statement are negative. <Lucien Morse - Last Filed: 05/10/16 02:40> ROS Statement: Those systems with pertinent positive or pertinent negative responses have been documented in the HPI. General Exam Limitations: no limitations General appearance: alert, in no apparent distress Head exam: Present: atraumatic, normocephalic, normal inspection Eye exam: Present: normal appearance, PERRL, EOMI. Absent: scleral icterus, conjunctival injection, periorbital swelling ENT exam: Present: normal exam, mucous membranes moist Neck exam: Present: normal inspection. Absent: tenderness, meningismus, lymphadenopathy Respiratory exam: Present: normal lung sounds bilaterally. Absent: respiratory distress, wheezes, rales, rhonchi, stridor Cardiovascular Exam: Present: regular rate, normal rhythm, normal heart sounds. Absent: systolic murmur, diastolic murmur, rubs, gallop, clicks GI/Abdominal exam: Present: soft, normal bowel sounds. Absent: distended, tenderness, guarding, rebound, rigid Extremities exam: Present: normal inspection, full ROM, normal capillary refill. Absent: tenderness, pedal edema, joint swelling, calf tenderness Back exam: Present: normal inspection Neurological exam: Present: alert, oriented X3, CN II-XII intact Psychiatric exam: Present: normal mood, anxious Skin exam: Present: warm, dry, intact, normal color. Absent: rash <Rodolfo Posada - Last Filed: 05/10/16 00:22> <Lucien Morse - Last Filed: 05/10/16 02:40> - General Exam Comments Initial Comments: This is a well-developed well-nourished awake alert anxious appearing female. Patient does seem very stressed she does stutter somewhat but when her attention is diverted she speaks normally. (Rodolfo Posada) Stroke MDM - NIH Stroke Scale 1a. Level of Consciousness: (0) alert 1b. LOC Questions: (0) answers correctly 1c. LOC Commands: (0) performs tasks correctly 2. Best Gaze: (0) normal 3. Visual: (0) no visual loss 4. Facial Palsy: (0) normal symmetrical movement 5a. Motor Arm Left: (0) no drift 5b. Motor Arm Right: (0) no drift 6a. Motor Leg Left: (0) no drift 6b. Motor Leg Right: (0) no drift 7. Limb Ataxia: (0) absent 8. Sensory: (0) normal 9. Best Language: (0) no aphasia 10. Dysarthria: (0) normal 11. Extinction/Inattention: (0) no abnormality - EKG Data -: EKG Interpreted by Wi EKG shows normal: sinus rhythm (Sinus rhythm rate of 64. Interval 164 QRS duration 76 QT/QTC of 446/460 nonspecific inferior changes unifocal PVC is noted ) <Rodolfo Posada - Last Filed: 05/10/16 00:22> - Lab Data Result diagrams: 05/10/16 00:20 05/10/16 00:20 <Lucien Morse - Last Filed: 05/10/16 02:40> - Lab Data Lab Results 05/10/16 05/10/16 05/10/16 Range/Units 00:20 00:20 00:20 WBC 8.2 (3.8-10.6) k/uL RBC 4.51 (3.80-5.40) m/uL Hgb 12.9 (11.4-16.0) gm/dL Hct 38.6 (34.0-46.0) % MCV 85.6 (80.0-100.0) fL MCH 28.6 (25.0-35.0) pg MCHC 33.5 (31.0-37.0) g/dL RDW 14.1 (11.5-15.5) % Plt Count 218 (150-450) k/uL Neutrophils % 68 % Lymphocytes % 23 % Monocytes % 5 % Eosinophils % 2 % Basophils % 1 % Neutrophils # 5.6 (1.3-7.7) k/uL Lymphocytes # 1.9 (1.0-4.8) k/uL Monocytes # 0.4 (0-1.0) k/uL Eosinophils # 0.2 (0-0.7) k/uL Basophils # 0.0 (0-0.2) k/uL Poikilocytosis Slight PT (9.0-12.0) sec INR (<1.1) APTT (22.0-30.0) sec Sodium 149 H (137-145) mmol/L Potassium 3.2 L (3.5-5.1) mmol/L Chloride 112 H (98-107) mmol/L Carbon Dioxide 24 (22-30) mmol/L Anion Gap 13 mmol/L BUN 16 (7-17) mg/dL Creatinine 1.10 H (0.52-1.04) mg/dL Est GFR (MDRD) Af Amer >60 (>60 ml/min/1.73 sqM) Est GFR (MDRD) Non-Af 52 (>60 ml/min/1.73 sqM) Glucose 143 H (74-99) mg/dL Calcium 8.4 (8.4-10.2) mg/dL Magnesium 1.4 L (1.6-2.3) mg/dL Total Bilirubin 0.4 (0.2-1.3) mg/dL AST 16 (14-36) U/L ALT 30 (9-52) U/L Alkaline Phosphatase 140 H (38-126) U/L Total Creatine Kinase 87 (30-135) U/L CK-MB (CK-2) 1.3 (0.0-2.4) ng/mL CK-MB (CK-2) Rel Index 1.5 Troponin I <0.012 (0.000-0.034) ng/mL Total Protein 6.5 (6.3-8.2) g/dL Albumin 3.6 (3.5-5.0) g/dL TSH 0.757 (0.465-4.680) mIU/L 05/10/16 Range/Units 00:20 WBC (3.8-10.6) k/uL RBC (3.80-5.40) m/uL Hgb (11.4-16.0) gm/dL Hct (34.0-46.0) % MCV (80.0-100.0) fL MCH (25.0-35.0) pg MCHC (31.0-37.0) g/dL RDW (11.5-15.5) % Plt Count (150-450) k/uL Neutrophils % % Lymphocytes % % Monocytes % % Eosinophils % % Basophils % % Neutrophils # (1.3-7.7) k/uL Lymphocytes # (1.0-4.8) k/uL Monocytes # (0-1.0) k/uL Eosinophils # (0-0.7) k/uL Basophils # (0-0.2) k/uL Poikilocytosis PT 10.6 (9.0-12.0) sec INR 1.0 (<1.1) APTT 25.0 (22.0-30.0) sec Sodium (137-145) mmol/L Potassium (3.5-5.1) mmol/L Chloride (98-107) mmol/L Carbon Dioxide (22-30) mmol/L Anion Gap mmol/L BUN (7-17) mg/dL Creatinine (0.52-1.04) mg/dL Est GFR (MDRD) Af Amer (>60 ml/min/1.73 sqM) Est GFR (MDRD) Non-Af (>60 ml/min/1.73 sqM) Glucose (74-99) mg/dL Calcium (8.4-10.2) mg/dL Magnesium (1.6-2.3) mg/dL Total Bilirubin (0.2-1.3) mg/dL AST (14-36) U/L ALT (9-52) U/L Alkaline Phosphatase (38-126) U/L Total Creatine Kinase (30-135) U/L CK-MB (CK-2) (0.0-2.4) ng/mL CK-MB (CK-2) Rel Index Troponin I (0.000-0.034) ng/mL Total Protein (6.3-8.2) g/dL Albumin (3.5-5.0) g/dL TSH (0.465-4.680) mIU/L Past Medical History Past Medical History: Coronary Artery Disease (CAD), Cancer, COPD, CVA/TIA, Diabetes Mellitus, GERD/Reflux, Hypertension Additional Past Medical History / Comment(s): HX: acute renal problem, neuropathy, CERVICAL CA. Perthes's dx affected short term memory. bilateral glaucoma.recent fall injured pinky finger rt hand. Last Myocardial Infarction Date:: 2001 or 2003 History of Any Multi-Drug Resistant Organisms: None Reported Past Surgical History: Cholecystectomy, Coronary Bypass/CABG, Heart Catheterization With Stent, Orthopedic Surgery Additional Past Surgical History / Comment(s): LEFT HIP ARTHOPLASTY. ORIF RIGHT ANKLE. Cervical cancer surgies. BILATERAL LASER EYE TX FOR GLAUCOMA. Laproscopy. TSS. stent to LAD in 10/2015 Past Anesthesia/Blood Transfusion Reactions: No Reported Reaction Date of Last Stent Placement:: 10/2015 Past Psychological History: Anxiety Additional Psychological History / Comment(s): Pt is disabled-SSI. She is independent and drives a car. Smoking Status: Never smoker Past Alcohol Use History: None Reported Additional Past Alcohol Use History / Comment(s): Pt was an alcoholic and has not drank since 1984 except for one bout of drinking in 2000. Past Drug Use History: None Reported - Past Family History Father History Unknown: Yes Family Medical History: COPD, Renal Disease Additional Family Medical History / Comment(s): Father at age 80yrs. of COPD and kidney faiilure. Mother History Unknown: Yes Family Medical History: Diabetes Mellitus Additional Family Medical History / Comment(s): Mother of diabetes at age 55 yrs. <Rodolfo Posada - Last Filed: 05/10/16 00:22> Disposition <Rodolfo Posada - Last Filed: 05/10/16 00:22> <Lucien Morse - Last Filed: 05/10/16 02:40> Clinical Impression: Paresthesias, Hypokalemia, Hypomagnesemia Disposition: HOME SELF-CARE Condition: Fair Instructions: Paresthesia (ED), Hypokalemia (ED), Hypomagnesemia (ED) Prescriptions: Magnesium Oxide 400 mg PO DAILY #20 tablet Referrals: None,Stated [Primary Care Provider] - 1-2 days
[2016-05-10 00:34] LABS: Basophils % (A) 1 %; CHCM 34.1; Eosinophils # (A) 0.2 k/uL (0-0.7); Eosinophils % (A) 2 %; HCT 38.6 % (34.0-46.0); HDW 3.45; HGB 12.9 gm/dL (11.4-16.0); Luc # (Auto) 0.17; Luc % (Auto) 2; Lymphocytes # (A) 1.9 k/uL (1.0-4.8); Lymphocytes % (A) 23 %; MCH 28.6 pg (25.0-35.0); MCHC 33.5 g/dL (31.0-37.0); MCV 85.6 fL (80.0-100.0); Mean Platelet Volume 7.6; Monocytes # (A) 0.4 k/uL (0-1.0); Monocytes % (A) 5 %; Neutrophils # (A) 5.6 k/uL (1.3-7.7); Neutrophils % (A) 68 %; Poikilocytosis Slight; RBC 4.51 m/uL (3.80-5.40); RDW 14.1 % (11.5-15.5); WBC 8.2 k/uL (3.8-10.6); WBC (Perox) 8.65
[2016-05-10 00:41] LABS: Prothrombin Time 10.6 sec (9.0-12.0)
[2016-05-10 00:49] LABS: ALT 30 U/L (9-52); AST 16 U/L (14-36); Alkaline Phosphatase 140 U/L (38-126); Anion Gap 13 mmol/L; Blood Urea Nitrogen 16 mg/dL (7-17); Calcium 8.4 mg/dL (8.4-10.2); Carbon Dioxide 24 mmol/L (22-30); Chloride 112 mmol/L (98-107); Glucose 143 mg/dL (74-99); Magnesium 1.4 mg/dL (1.6-2.3); Non-African American GFR(MDRD) 52 (>60 ml/min/1.73 sqM); Potassium 3.2 mmol/L (3.5-5.1); Sodium 149 mmol/L (137-145); Total Bilirubin 0.4 mg/dL (0.2-1.3); Total Protein 6.5 g/dL (6.3-8.2)
[2016-05-10 01:02] LABS: Creatine Kinase 87 U/L (30-135)
--- NOTE | 2016-05-10 01:13 | CT ---
EXAM: CT Head Without Intravenous Contrast. CLINICAL HISTORY: Reason: Neuro Deficits TECHNIQUE: Axial computed tomography images of the head/brain without intravenous contrast. CTDI is 60.30 mGy and DLP is 1072.30 mGy-cm This CT exam was performed using one or more of the following dose reduction techniques: automated exposure control, adjustment of the mA and/or kV according to patient size, and/or use of iterative reconstruction technique. COMPARISON: 02/20/16 CT FINDINGS: Brain: No intracranial hemorrhage, mass effect, midline shift or hydrocephalus has developed. No identifiable acute or recent territorial infarct. Ventricles: Ventricles are stable in size and within normal limits. Bones/joints: Stable. No acute fracture. Vasculature: Intracranial atherosclerosis is again present. Sinuses: Round filling defects are again present in both maxillary sinuses, larger and of lower density on the right favoring a mucous retention cyst than on the left which may be a complex mucous retention cyst or polyp, stable. There is a tiny layering air-fluid level now present in the right sphenoid sinus. The remaining visualized paranasal sinuses are clear. Mastoid air cells: Unremarkable as visualized. No mastoid effusion. IMPRESSION: 1. No new acute intracranial abnormality is seen to account for the patient's reported symptoms ("neuro deficits"). 2. Bilateral paranasal sinus disease now includes a small air-fluid level in the right sphenoid sinus, as above.
[2016-05-10 01:19] LABS: Creatine Kinase MB 1.3 ng/mL (0.0-2.4); Troponin I <0.012 ng/mL (0.000-0.034)
--- NOTE | 2016-05-10 01:28 | XR ---
EXAM: XR Chest, 2 Views. CLINICAL HISTORY: Reason: altered mental status TECHNIQUE: Frontal and lateral views of the chest. COMPARISON: 04/10/16 two-view chest radiographs. FINDINGS: Lungs: The lungs are stable without new focal infiltrate. Pleural space: The pleural spaces remain clear without effusion or pneumothorax. Heart: The heart size is stable as are the mediastinal contours, status post median sternotomy. Mediastinum: See above. Bones/joints: The bones are stable with degenerative changes and now slightly better seen minor anterior loss of height of at least 1 or 2 mid to lower thoracic vertebral bodies. IMPRESSION: No significant change, no new acute intrathoracic abnormality seen, as above.
[2016-05-10] MEDS ORDERED: POTASSIUM CHLORIDE ER 20 MEQ TAB.ER PO STA (02:41)
[2016-05-10 03:10] VITALS: RESP 16
[2016-05-10 03:13] VITALS: BP 165/79; PULSE 69
== END 2016-05-10 03:13 | disposition home or self-care (01) ==
LOC: EC 23:35
DX: R20.2 Paresthesia of skin (principal); E87.6 Hypokalemia; E83.42 Hypomagnesemia; I25.10 Atherosclerotic heart disease of native coronary artery without angina pectoris; I25.2 Old myocardial infarction; I10 Essential (primary) hypertension; E11.39 Type 2 diabetes mellitus with other diabetic ophthalmic complication; H40.9 Unspecified glaucoma; K21.9 Gastro-esophageal reflux disease without esophagitis; F41.9 Anxiety disorder, unspecified; J44.9 Chronic obstructive pulmonary disease, unspecified; Z95.1 Presence of aortocoronary bypass graft; Z95.5 Presence of coronary angioplasty implant and graft; Z91.048 Other nonmedicinal substance allergy status; Z88.2 Allergy status to sulfonamides; Z91.030 Bee allergy status; Z91.02 Food additives allergy status; Z79.4 Long term (current) use of insulin; Z79.52 Long term (current) use of systemic steroids; Z79.899 Other long term (current) drug therapy; Z86.73 Personal history of transient ischemic attack (TIA), and cerebral infarction without residual deficits; Z79.82 Long term (current) use of aspirin; Z79.02 Long term (current) use of antithrombotics/antiplatelets
CPT/HCPCS: 12001; 36415; 70450; 71020; 80053; 82550; 82553; 83735; 84443; 84484; 85025; 85610; 85730; 93005; 96374; 99284

== ENCOUNTER 2016-05-16 23:20 | Emergency (ER) | payer OTHER ==
--- NOTE | 2016-05-17 00:54 | ED ---
Skin/Abscess/FB HPI - General Chief complaint: Skin/Abscess/Foreign Body Stated complaint: Rash Time Seen by Provider: 05/17/16 00:22 Source: patient, RN notes reviewed Mode of arrival: ambulatory Limitations: no limitations - History of Present Illness Initial comments: Patient is a 55-year-old female presents to the emergency room for evaluation of rash. Patient states that a yeast infection under her abdomen for the past few weeks. Patient states it has been getting worse over the past 3 days. Patient states she started using Nystop powder over the area. Patient states she noticed increased redness on the right side of her abdominal crease. Patient states it's a burning and causing her a lot of pain. Patient states that she washes the area with soap and water, pats it dry and applies the Nystop powder 3 times a day. Patient states she has been trying to keep the area as dry as possible. Patient denies any fevers, chills. Patient denies nausea or vomiting. - Related Data Home Medications Medication Instructions Recorded Confirmed Clopidogrel Bisulfate [Plavix] 75 mg PO DAILY 06/11/13 05/16/16 Diltiazem Cd [Cardizem CD] 240 mg PO DAILY 06/11/13 05/16/16 ALPRAZolam [Xanax] 0.25 mg PO TID PRN 09/27/14 05/16/16 Albuterol Inhaler [Ventolin Hfa 2 puff INHALATION RT-Q6H PRN 09/27/14 05/16/16 Inhaler] Pantoprazole Sodium [Protonix] 40 mg PO BID 04/05/15 05/16/16 Albuterol Nebulized [Ventolin 2.5 mg INHALATION RT-Q6H PRN 05/07/15 05/16/16 Nebulized] Metoprolol Tartrate [Lopressor] 25 mg PO BID 05/07/15 05/16/16 Insulin Glargine [Lantus] 50 unit SQ BID 08/26/15 05/16/16 Topiramate [Topamax] 25 mg PO BID 10/09/15 05/16/16 Atorvastatin [Lipitor] 40 mg PO DAILY 10/21/15 05/16/16 Losartan Potassium [Cozaar] 25 mg PO DAILY 02/07/16 05/16/16 Topiramate [Topamax] 50 mg PO BID 03/04/16 05/16/16 Ranitidine HCl [Zantac] 150 mg PO BID 04/07/16 05/16/16 diphenhydrAMINE [Benadryl] 1 - 2 tab PO HS 05/07/16 05/16/16 Previous Rx's Medication Instructions Recorded Aspirin 325 mg PO DAILY tab 10/11/15 Nitroglycerin Sl Tabs [Nitrostat] 0.4 mg SUBLINGUAL Q5M PRN #25 tab 10/11/15 Hydrocortisone Cream 1 applic TOPICAL TID #1 cream..g. 03/19/16 [Hydrocortisone 1% Cream] Nystatin 100,000 Unit/gm Powd 1 applic TOPICAL TID 30 Days 05/07/16 [Mycostatin Powder] Magnesium Oxide 400 mg PO DAILY #20 tablet 05/10/16 Allergies Allergy/AdvReac Type Severity Reaction Status Date / Time adhesive tape Allergy Rash/Hives Verified 05/09/16 23:44 indomethacin Allergy Unknown Verified 05/09/16 23:44 insulin glargine Allergy Rash/Hives Verified 05/09/16 23:44 [From Basaglar KwikPen] ipratropium bromide Allergy Unknown Verified 05/09/16 23:44 [From Atrovent] ketorolac tromethamine Allergy Anaphylaxis Verified 05/09/16 23:44 [From Toradol] naproxen [From Naprosyn] Allergy Itching Verified 05/09/16 23:44 pregabalin [From Lyrica] Allergy Unknown Verified 05/09/16 23:44 Sulfa (Sulfonamide Allergy Anaphylaxis Verified 05/09/16 23:44 Antibiotics) sulfamethoxazole Allergy Unknown Verified 05/09/16 23:44 [From Bactrim] tramadol Allergy Unknown Verified 05/09/16 23:44 trimethoprim [From Bactrim] Allergy Unknown Verified 05/09/16 23:44 venom-honey bee Allergy Anaphylaxis Verified 05/09/16 23:44 [bee venom (honey bee)] budesonide [From Symbicort] AdvReac Vomiting Verified 05/09/16 23:44 formoterol fumarate AdvReac Vomiting Verified 05/09/16 23:44 [From Symbicort] sucralose AdvReac Rapid Verified 05/09/16 23:44 [From Splenda (sucralose)] Heart Rate tramadol HCl [From Ultram] AdvReac SEIZURES Verified 05/09/16 23:44 Review of Systems ROS Statement: Those systems with pertinent positive or pertinent negative responses have been documented in the HPI. ROS Other: All systems not noted in ROS Statement are negative. Past Medical History Past Medical History: Coronary Artery Disease (CAD), Cancer, COPD, CVA/TIA, Diabetes Mellitus, GERD/Reflux, Hypertension Additional Past Medical History / Comment(s): HX: acute renal problem, neuropathy, CERVICAL CA. Perthes's dx affected short term memory. bilateral glaucoma.recent fall injured pinky finger rt hand. Last Myocardial Infarction Date:: 2001 or 2003 History of Any Multi-Drug Resistant Organisms: None Reported Past Surgical History: Cholecystectomy, Coronary Bypass/CABG, Heart Catheterization With Stent, Orthopedic Surgery Additional Past Surgical History / Comment(s): LEFT HIP ARTHOPLASTY. ORIF RIGHT ANKLE. Cervical cancer surgies. BILATERAL LASER EYE TX FOR GLAUCOMA. Laproscopy. TSS. stent to LAD in 10/2015 Past Anesthesia/Blood Transfusion Reactions: No Reported Reaction Date of Last Stent Placement:: 10/2015 Past Psychological History: Anxiety Additional Psychological History / Comment(s): Pt is disabled-SSI. She is independent and drives a car. Smoking Status: Never smoker Past Alcohol Use History: None Reported Additional Past Alcohol Use History / Comment(s): Pt was an alcoholic and has not drank since 1984 except for one bout of drinking in 2000. Past Drug Use History: None Reported - Past Family History Father History Unknown: Yes Family Medical History: COPD, Renal Disease Additional Family Medical History / Comment(s): Father at age 80yrs. of COPD and kidney faiilure. Mother History Unknown: Yes Family Medical History: Diabetes Mellitus Additional Family Medical History / Comment(s): Mother of diabetes at age 55 yrs. General Exam - General Exam Comments Initial Comments: Laying in exam room, no acute distress. Limitations: no limitations General appearance: alert, in no apparent distress Head exam: Present: atraumatic, normocephalic, normal inspection Eye exam: Present: normal appearance ENT exam: Present: normal exam Neck exam: Present: normal inspection Respiratory exam: Present: normal lung sounds bilaterally. Absent: respiratory distress Cardiovascular Exam: Present: regular rate, normal rhythm, normal heart sounds GI/Abdominal exam: Present: soft, normal bowel sounds. Absent: distended, tenderness, guarding, rebound, rigid Extremities exam: Present: normal inspection Back exam: Present: normal inspection Neurological exam: Present: alert, oriented X3, CN II-XII intact, normal gait Psychiatric exam: Present: normal affect, normal mood Skin exam: Present: warm, rash. Absent: dry (Red beefy area under lower abdominal skin fold just above the right pelvic area.) Course Vital Signs 05/16/16 05/17/16 23:41 01:20 Temperature 97.6 F 98.9 F Pulse Rate 57 L 63 Respiratory 20 18 Rate Blood Pressure 193/84 155/82 O2 Sat by Pulse 98 97 Oximetry Medical Decision Making - Medical Decision Making Patient is a 55-year-old female presents emergency room for evaluation of abdominal skin rash. Patient has a history of recurrent yeast infections under her skin folds of her abdomen/breast. Patient given Diflucan while she was here. Advised patient to continue with the nystatin powder. Advised patient to follow-up with motor assembler. Patient states she understands everything that was discussed with her. Return parameters discussed. Case discussed with Dr. Morse. Disposition Clinical Impression: Candidal skin infection Disposition: HOME SELF-CARE Condition: Good Instructions: Skin Yeast Infection (ED) Additional Instructions: Continue using Nystop powder as directed. Keep area as dry as possible. Follow up with primary care provider or motor assembler for reevaluation. If any new symptom arises or symptoms worsen, return to ER as soon as possible. Referrals: Cha Andrews MD [STAFF PHYSICIAN] - 1-2 days Time of Disposition: 01:04
[2016-05-17] MEDS ORDERED: FLUCONAZOLE 150 MG TAB PO STA (01:02)
[2016-05-17 01:46] VITALS: BP 155/82; PULSE 63; RESP 18; TEMP 98.9
== END 2016-05-17 01:20 | disposition home or self-care (01) ==
LOC: EC 23:20
DX: B37.2 Candidiasis of skin and nail (principal); E11.9 Type 2 diabetes mellitus without complications; K21.9 Gastro-esophageal reflux disease without esophagitis; I25.10 Atherosclerotic heart disease of native coronary artery without angina pectoris; I10 Essential (primary) hypertension; Z79.02 Long term (current) use of antithrombotics/antiplatelets; Z79.899 Other long term (current) drug therapy; Z79.4 Long term (current) use of insulin; Z88.2 Allergy status to sulfonamides; Z91.030 Bee allergy status; Z88.8 Allergy status to other drugs, medicaments and biological substances; Z88.6 Allergy status to analgesic agent; Z91.048 Other nonmedicinal substance allergy status; Z86.73 Personal history of transient ischemic attack (TIA), and cerebral infarction without residual deficits; Z95.5 Presence of coronary angioplasty implant and graft; Z90.49 Acquired absence of other specified parts of digestive tract
CPT/HCPCS: 99283

== ENCOUNTER 2016-05-19 00:20 | Emergency (ER) | payer OTHER ==
[2016-05-19 00:48] VITALS: TEMP 97.6
[2016-05-19 01:21] LABS: Appearance,Urine Cloudy (Clear); Bacteria,Urine Occasional /hpf; Bilirubin,Urine Negative (Negative); Glucose,Urine (UA) 3+ (Negative); Ketones,Urine Negative (Negative); Leukocyte Esterase,Urine Large (Negative); Nitrite,Urine Negative (Negative); PH, Urine 6.5 (5.0-8.0); Particle Count 5317; Protein,Urine 1+ (Negative); RBC,Urine 32 /hpf (0-5); Specific Gravity,Urine 1.018 (1.001-1.035); Squamous Epithelial Cell,Urine 8 /hpf (0-4); UA Billing (MACRO vs. MICRO) MICRO; WBC,Urine >182 /hpf (0-5)
[2016-05-19] MEDS ORDERED: CIPROFLOXACIN HCL 500 MG TAB PO STA (02:05)
[2016-05-19] MEDS ORDERED: PHENAZOPYRIDINE 200 MG TAB PO STA (02:05)
--- NOTE | 2016-05-19 02:10 | ED ---
Female Urogenital HPI - General Chief complaint: Urogenital Stated complaint: Poss UTI Time Seen by Provider: 05/19/16 01:40 Source: patient, RN notes reviewed Mode of arrival: ambulatory Limitations: no limitations - History of Present Illness Initial comments: 55-year-old female presents emergency Department chief complaint dysuria. Patient states started today. Patient states hurts every time she has to go and she has increased frequency. Patient denies fever, chills. Denies denies diarrhea constipation. Patient also complains ongoing diffuse rash in her pannus. Patient states that she's been putting nystatin on it with no relief. Patient offers no other complaints. - Related Data Home Medications Medication Instructions Recorded Confirmed Clopidogrel Bisulfate [Plavix] 75 mg PO DAILY 06/11/13 05/19/16 Diltiazem Cd [Cardizem CD] 240 mg PO DAILY 06/11/13 05/19/16 ALPRAZolam [Xanax] 0.25 mg PO TID PRN 09/27/14 05/19/16 Albuterol Inhaler [Ventolin Hfa 2 puff INHALATION RT-Q6H PRN 09/27/14 05/19/16 Inhaler] Pantoprazole Sodium [Protonix] 40 mg PO BID 04/05/15 05/19/16 Albuterol Nebulized [Ventolin 2.5 mg INHALATION RT-Q6H PRN 05/07/15 05/19/16 Nebulized] Metoprolol Tartrate [Lopressor] 25 mg PO BID 05/07/15 05/19/16 Insulin Glargine [Lantus] 50 unit SQ BID 08/26/15 05/19/16 Topiramate [Topamax] 25 mg PO BID 10/09/15 05/19/16 Atorvastatin [Lipitor] 40 mg PO DAILY 10/21/15 05/19/16 Losartan Potassium [Cozaar] 25 mg PO DAILY 02/07/16 05/19/16 Topiramate [Topamax] 50 mg PO BID 03/04/16 05/19/16 Ranitidine HCl [Zantac] 150 mg PO BID 04/07/16 05/19/16 diphenhydrAMINE [Benadryl] 1 - 2 tab PO HS 05/07/16 05/19/16 Previous Rx's Medication Instructions Recorded Aspirin 325 mg PO DAILY tab 10/11/15 Nitroglycerin Sl Tabs [Nitrostat] 0.4 mg SUBLINGUAL Q5M PRN #25 tab 10/11/15 Hydrocortisone Cream 1 applic TOPICAL TID #1 cream..g. 03/19/16 [Hydrocortisone 1% Cream] Nystatin 100,000 Unit/gm Powd 1 applic TOPICAL TID 30 Days 05/07/16 [Mycostatin Powder] Magnesium Oxide 400 mg PO DAILY #20 tablet 05/10/16 Ciprofloxacin HCl [Cipro] 500 mg PO Q12HR #14 tablet 05/19/16 Fluconazole [Diflucan] 150 mg PO ONCE #5 tab 05/19/16 Phenazopyridine [Pyridium] 200 mg PO TID #6 tablet 05/19/16 Allergies Allergy/AdvReac Type Severity Reaction Status Date / Time adhesive tape Allergy Rash/Hives Verified 05/19/16 00:48 indomethacin Allergy Unknown Verified 05/19/16 00:48 insulin glargine Allergy Rash/Hives Verified 05/19/16 00:48 [From Basaglar KwikPen] ipratropium bromide Allergy Unknown Verified 05/19/16 00:48 [From Atrovent] ketorolac tromethamine Allergy Anaphylaxis Verified 05/19/16 00:48 [From Toradol] naproxen [From Naprosyn] Allergy Itching Verified 05/19/16 00:48 pregabalin [From Lyrica] Allergy Unknown Verified 05/19/16 00:48 Sulfa (Sulfonamide Allergy Anaphylaxis Verified 05/19/16 00:48 Antibiotics) sulfamethoxazole Allergy Unknown Verified 05/19/16 00:48 [From Bactrim] tramadol Allergy Unknown Verified 05/19/16 00:48 trimethoprim [From Bactrim] Allergy Unknown Verified 05/19/16 00:48 venom-honey bee Allergy Anaphylaxis Verified 05/19/16 00:48 [bee venom (honey bee)] budesonide [From Symbicort] AdvReac Vomiting Verified 05/19/16 00:48 formoterol fumarate AdvReac Vomiting Verified 05/19/16 00:48 [From Symbicort] sucralose AdvReac Rapid Verified 05/19/16 00:48 [From Splenda (sucralose)] Heart Rate tramadol HCl [From Ultram] AdvReac SEIZURES Verified 05/19/16 00:48 Review of Systems ROS Statement: Those systems with pertinent positive or pertinent negative responses have been documented in the HPI. ROS Other: All systems not noted in ROS Statement are negative. Past Medical History Past Medical History: Coronary Artery Disease (CAD), Cancer, COPD, CVA/TIA, Diabetes Mellitus, GERD/Reflux, Hypertension Additional Past Medical History / Comment(s): HX: acute renal problem, neuropathy, CERVICAL CA. Perthes's dx affected short term memory. bilateral glaucoma.recent fall injured pinky finger rt hand. Last Myocardial Infarction Date:: 2001 or 2003 History of Any Multi-Drug Resistant Organisms: None Reported Past Surgical History: Cholecystectomy, Coronary Bypass/CABG, Heart Catheterization With Stent, Orthopedic Surgery Additional Past Surgical History / Comment(s): LEFT HIP ARTHOPLASTY. ORIF RIGHT ANKLE. Cervical cancer surgies. BILATERAL LASER EYE TX FOR GLAUCOMA. Laproscopy. TSS. stent to LAD in 10/2015 Past Anesthesia/Blood Transfusion Reactions: No Reported Reaction Date of Last Stent Placement:: 10/2015 Past Psychological History: Anxiety Additional Psychological History / Comment(s): Pt is disabled-SSI. She is independent and drives a car. Smoking Status: Never smoker Past Alcohol Use History: None Reported Additional Past Alcohol Use History / Comment(s): Pt was an alcoholic and has not drank since 1984 except for one bout of drinking in 2000. Past Drug Use History: None Reported - Past Family History Father History Unknown: Yes Family Medical History: COPD, Renal Disease Additional Family Medical History / Comment(s): Father at age 80yrs. of COPD and kidney faiilure. Mother History Unknown: Yes Family Medical History: Diabetes Mellitus Additional Family Medical History / Comment(s): Mother of diabetes at age 55 yrs. General Exam Limitations: no limitations General appearance: alert, in no apparent distress Head exam: Present: atraumatic, normocephalic, normal inspection Cardiovascular Exam: Present: regular rate, normal rhythm, normal heart sounds. Absent: systolic murmur, diastolic murmur, rubs, gallop, clicks GI/Abdominal exam: Present: soft, normal bowel sounds, other (Rash noted in the pannus erythematous, borders noted). Absent: distended, tenderness, guarding, rebound, rigid Back exam: Absent: CVA tenderness (R), CVA tenderness (L) Course Vital Signs 05/19/16 00:46 Temperature 97.6 F Pulse Rate 64 Respiratory 18 Rate Blood Pressure 182/83 O2 Sat by Pulse 98 Oximetry Medical Decision Making - Medical Decision Making 55-year-old female presented for dysuria. Patient has a urinary tract infection. Patient also has candidiasis. Patient be given Diflucan, ciprofloxacin and Pyridium. Return parameters discussed - Lab Data Lab Results 05/19/16 Range/Units 00:50 Urine Color Yellow Urine Appearance Cloudy H (Clear) Urine pH 6.5 (5.0-8.0) Ur Specific [place] 1.018 (1.001-1.035) Urine Protein 1+ H (Negative) Urine Glucose (UA) 3+ H (Negative) Urine Ketones Negative (Negative) Urine Blood Small H (Negative) Urine Nitrite Negative (Negative) Urine Bilirubin Negative (Negative) Urine Urobilinogen 2.0 (<2.0) mg/dL Ur Leukocyte Esterase Large H (Negative) Urine RBC 32 H (0-5) /hpf Urine WBC >182 H (0-5) /hpf Ur Squamous Epith Cells 8 H (0-4) /hpf Urine Bacteria Occasional H (None) /hpf Hyaline Casts 1 (0-2) /lpf Disposition Clinical Impression: Candidal skin infection, UTI (urinary tract infection) Disposition: HOME SELF-CARE Condition: Stable Instructions: Urinary Tract Infection in Women (ED) Additional Instructions: Please return to the Emergency Department if symptoms worsen or any other concerns. Prescriptions: Ciprofloxacin HCl [Cipro] 500 mg PO Q12HR #14 tablet Fluconazole [Diflucan] 150 mg PO ONCE #5 tab Phenazopyridine [Pyridium] 200 mg PO TID #6 tablet Time of Disposition: 02:09
[2016-05-19 03:13] VITALS: BP 146/81; PULSE 65; RESP 16
== END 2016-05-19 03:11 | disposition home or self-care (01) ==
LOC: EC 00:20
DX: B37.89 Other sites of candidiasis (principal); N39.0 Urinary tract infection, site not specified; I25.10 Atherosclerotic heart disease of native coronary artery without angina pectoris; E11.9 Type 2 diabetes mellitus without complications; K21.9 Gastro-esophageal reflux disease without esophagitis; I10 Essential (primary) hypertension; F41.9 Anxiety disorder, unspecified; Z79.4 Long term (current) use of insulin; Z79.899 Other long term (current) drug therapy; Z79.02 Long term (current) use of antithrombotics/antiplatelets; Z91.048 Other nonmedicinal substance allergy status; Z88.6 Allergy status to analgesic agent; Z88.8 Allergy status to other drugs, medicaments and biological substances; Z88.2 Allergy status to sulfonamides; Z91.030 Bee allergy status; Z86.73 Personal history of transient ischemic attack (TIA), and cerebral infarction without residual deficits; Z95.5 Presence of coronary angioplasty implant and graft
CPT/HCPCS: 81001; 87086; 99283

== ENCOUNTER 2016-05-25 04:52 | Emergency (ER) | payer OTHER ==
[2016-05-25 04:55] VITALS: RESP 18
[2016-05-25 05:30] LABS: Basophils # (A) 0.1 k/uL (0-0.2); Basophils % (A) 0 %; CH 29.4; CHCM 34.4; Eosinophils # (A) 0.2 k/uL (0-0.7); Eosinophils % (A) 1 %; HCT 42.2 % (34.0-46.0); HDW 3.58; HGB 14.3 gm/dL (11.4-16.0); Luc # (Auto) 0.25; Luc % (Auto) 2; Lymphocytes % (A) 6 %; MCH 29.1 pg (25.0-35.0); MCHC 33.8 g/dL (31.0-37.0); MCV 85.9 fL (80.0-100.0); Mean Platelet Volume 7.2; Monocytes # (A) 1.3 k/uL (0-1.0); Monocytes % (A) 7 %; Neutrophils # (A) 14.1 k/uL (1.3-7.7); Neutrophils % (A) 84 %; Poikilocytosis Slight; RBC 4.91 m/uL (3.80-5.40); WBC 16.8 k/uL (3.8-10.6)
--- NOTE | 2016-05-25 05:44 | XR ---
EXAM: XR Abdomen, 1 View. CLINICAL HISTORY: Reason: abdominal pain TECHNIQUE: Frontal supine view of the abdomen/pelvis. COMPARISON: 03/04/16. FINDINGS: Gastrointestinal tract: Nonspecific bowel gas pattern. Bones/joints: Left hip arthroplasty. Other findings: Faint 2.4 cm rounded opacity overlying the mid right kidney, unclear etiology. Additional smaller rounded calcific densities overlying the left abdomen, similar to prior study. Right upper quadrant cholecystectomy clips. IMPRESSION: 1. Faint 2.4 cm rounded opacity overlying the mid right kidney, unclear etiology. CT may be considered if there is concern for renal calculus. 2. Nonspecific bowel gas pattern.
[2016-05-25 06:07] LABS: Potassium 3.3 mmol/L (3.5-5.1); Total Bilirubin 0.5 mg/dL (0.2-1.3)
[2016-05-25 06:39] LABS: Appearance,Urine Turbid (Clear); Bacteria,Urine Occasional /hpf; Bilirubin,Urine Negative (Negative); Glucose,Urine (UA) Negative (Negative); Ketones,Urine Negative (Negative); Leukocyte Esterase,Urine Small (Negative); Mucus,Urine Many /hpf; Nitrite,Urine Negative (Negative); PH, Urine 5.5 (5.0-8.0); Particle Count 30646; Protein,Urine 1+ (Negative); RBC,Urine 3 /hpf (0-5); Specific Gravity,Urine 1.024 (1.001-1.035); Squamous Epithelial Cell,Urine 36 /hpf (0-4); UA Billing (MACRO vs. MICRO) MICRO; WBC,Urine 21 /hpf (0-5)
--- NOTE | 2016-05-25 07:52 | CT ---
EXAMINATION TYPE: CT abdomen pelvis wo con DATE OF EXAM: 05/25/2016 7:41 AM COMPARISON: 07/24/2015 HISTORY: 55-year-old female generalized Abdominal pain CT DLP: 1072.00 mGycm. Automated exposure control for dose reduction was used. TECHNIQUE: Contiguous axial scanning of the abdomen and pelvis without IV contrast. Coronal and sagit eren reconstructions performed. FINDINGS: Median sternotomy wires. Heart is normal size without pericardial effusion. Lung bases clear without pleural effusion. Noncontrast appearance of the liver, adrenal glands, kidneys, and pancreas show no gross abnormality. Calcified granuloma seen within the spleen with a hilar splenule. No dilated small bowel, free fluid, or free air. Normal appendix. No significant stool burden. No pericolonic inflammatory change. Scattered small retroperitoneal lymph nodes are unchanged. No progressive mesenteric or retroperitone al lymphadenopathy seen. Uterus and ovaries are visualized. Asymmetric prominence of the left ovary is unchanged. Pelvic floor relaxation. No abnormal fluid collection in the pelvis or pelvic lymphadenopathy. Bones: Changes of prior left hip total arthroplasty. Degenerative changes lower lumbar spine with a t ransitional lumbosacral segment. IMPRESSION: 1. Prior granulomatous disease as evidenced by calcifications in the spleen. Also, pelvic floor relax ation. 2. Otherwise, no acute inflammatory process identified in the abdomen or pelvis to explain the patien t's symptoms.
--- NOTE | 2016-05-25 08:12 | ED ---
Abdominal Pain HPI - General Source: patient, family Mode of arrival: ambulatory Limitations: no limitations - History of Present Illness MD Complaint: abdominal pain Onset/Timin -: hour(s) Location: epigastric Radiation: none Migration to: no migration Severity: severe Quality: sharp Consistency: constant Improves With: nothing Worsens With: nothing Associated Symptoms: nausea, vomiting, diarrhea <Lucien Morse - Last Filed: 05/25/16 08:09> <Nathan Damon - Last Filed: 05/25/16 08:29> - General Chief Complaint: Abdominal Pain Stated Complaint: Abdominal Pain Time Seen by Provider: 05/25/16 05:02 - History of Present Illness Initial Comments: This patient is a 55-year-old woman who presents by ambulance to be evaluated for abdominal pain and vomiting. The patient states that she had gone to sleep on the couch, as she is in the process of moving, and then awakened at 1-2 hours ago. She states that she woke up feeling funny sensation in her epigastric area almost like a pop. She states that shortly thereafter she started having pain and then also a number of episodes of vomiting. She did have a loose bowel movement as well. Patient is not seeing any blood or dark tarry material. (Lucien Morse) - Related Data Home Medications Medication Instructions Recorded Confirmed Clopidogrel Bisulfate [Plavix] 75 mg PO DAILY 06/11/13 05/25/16 Diltiazem Cd [Cardizem CD] 240 mg PO DAILY 06/11/13 05/25/16 ALPRAZolam [Xanax] 0.25 mg PO TID PRN 09/27/14 05/25/16 Albuterol Inhaler [Ventolin Hfa 2 puff INHALATION RT-Q6H PRN 09/27/14 05/25/16 Inhaler] Pantoprazole Sodium [Protonix] 40 mg PO BID 04/05/15 05/25/16 Albuterol Nebulized [Ventolin 2.5 mg INHALATION RT-Q6H PRN 05/07/15 05/25/16 Nebulized] Metoprolol Tartrate [Lopressor] 25 mg PO BID 05/07/15 05/25/16 Insulin Glargine [Lantus] 50 unit SQ BID 08/26/15 05/25/16 Topiramate [Topamax] 25 mg PO BID 10/09/15 05/25/16 Atorvastatin [Lipitor] 40 mg PO DAILY 10/21/15 05/25/16 Losartan Potassium [Cozaar] 25 mg PO DAILY 02/07/16 05/25/16 Topiramate [Topamax] 50 mg PO BID 03/04/16 05/25/16 Ranitidine HCl [Zantac] 150 mg PO BID 04/07/16 05/25/16 diphenhydrAMINE [Benadryl] 1 - 2 tab PO HS 05/07/16 05/25/16 Previous Rx's Medication Instructions Recorded Aspirin 325 mg PO DAILY tab 10/11/15 Nitroglycerin Sl Tabs [Nitrostat] 0.4 mg SUBLINGUAL Q5M PRN #25 tab 10/11/15 Hydrocortisone Cream 1 applic TOPICAL TID #1 cream..g. 03/19/16 [Hydrocortisone 1% Cream] Nystatin 100,000 Unit/gm Powd 1 applic TOPICAL TID 30 Days 05/07/16 [Mycostatin Powder] Magnesium Oxide 400 mg PO DAILY #20 tablet 05/10/16 Ciprofloxacin HCl [Cipro] 500 mg PO Q12HR #14 tablet 05/19/16 Phenazopyridine [Pyridium] 200 mg PO TID #6 tablet 05/19/16 Nitrofurantoin Macrocrystal 2 tab PO QID #80 capsule 05/25/16 [Macrodantin] Allergies Allergy/AdvReac Type Severity Reaction Status Date / Time adhesive tape Allergy Rash/Hives Verified 05/25/16 07:52 indomethacin Allergy Unknown Verified 05/25/16 07:52 insulin glargine Allergy Rash/Hives Verified 05/25/16 07:52 [From Basaglar KwikPen] ipratropium bromide Allergy Unknown Verified 05/25/16 07:52 [From Atrovent] ketorolac tromethamine Allergy Anaphylaxis Verified 05/25/16 07:52 [From Toradol] naproxen [From Naprosyn] Allergy Itching Verified 05/25/16 07:52 pregabalin [From Lyrica] Allergy Unknown Verified 05/25/16 07:52 Sulfa (Sulfonamide Allergy Anaphylaxis Verified 05/25/16 07:52 Antibiotics) sulfamethoxazole Allergy Unknown Verified 05/25/16 07:52 [From Bactrim] tramadol Allergy Unknown Verified 05/25/16 07:52 trimethoprim [From Bactrim] Allergy Unknown Verified 05/25/16 07:52 venom-honey bee Allergy Anaphylaxis Verified 05/25/16 07:52 [bee venom (honey bee)] budesonide [From Symbicort] AdvReac Vomiting Verified 05/25/16 07:52 formoterol fumarate AdvReac Vomiting Verified 05/25/16 07:52 [From Symbicort] sucralose AdvReac Rapid Verified 05/25/16 07:52 [From Splenda (sucralose)] Heart Rate tramadol HCl [From Ultram] AdvReac SEIZURES Verified 05/25/16 07:52 Review of Systems ROS Other: All systems not noted in ROS Statement are negative. Constitutional: Denies: fever, chills Respiratory: Denies: cough, dyspnea Cardiovascular: Denies: chest pain, palpitations Gastrointestinal: Reports: as per HPI, abdominal pain, nausea, vomiting, diarrhea Genitourinary: Denies: dysuria, hematuria Musculoskeletal: Denies: back pain Skin: Denies: rash Neurological: Denies: headache, weakness, numbness <Lucien Morse - Last Filed: 05/25/16 08:09> ROS Other: All systems not noted in ROS Statement are negative. <Nathan Damon - Last Filed: 05/25/16 08:29> ROS Statement: Those systems with pertinent positive or pertinent negative responses have been documented in the HPI. Past Medical History Past Medical History: Coronary Artery Disease (CAD), Cancer, COPD, CVA/TIA, Diabetes Mellitus, GERD/Reflux, Hypertension Additional Past Medical History / Comment(s): HX: acute renal problem, neuropathy, CERVICAL CA. Perthes's dx affected short term memory. bilateral glaucoma.recent fall injured pinky finger rt hand. Last Myocardial Infarction Date:: 2001 or 2003 History of Any Multi-Drug Resistant Organisms: None Reported Past Surgical History: Cholecystectomy, Coronary Bypass/CABG, Heart Catheterization With Stent, Orthopedic Surgery Additional Past Surgical History / Comment(s): LEFT HIP ARTHOPLASTY. ORIF RIGHT ANKLE. Cervical cancer surgies. BILATERAL LASER EYE TX FOR GLAUCOMA. Laproscopy. TSS. stent to LAD in 10/2015 Past Anesthesia/Blood Transfusion Reactions: No Reported Reaction Date of Last Stent Placement:: 10/2015 Past Psychological History: Anxiety Additional Psychological History / Comment(s): Pt is disabled-SSI. She is independent and drives a car. Smoking Status: Never smoker Past Alcohol Use History: None Reported Additional Past Alcohol Use History / Comment(s): Pt was an alcoholic and has not drank since 1984 except for one bout of drinking in 2000. Past Drug Use History: None Reported - Past Family History Father History Unknown: Yes Family Medical History: COPD, Renal Disease Additional Family Medical History / Comment(s): Father at age 80yrs. of COPD and kidney faiilure. Mother History Unknown: Yes Family Medical History: Diabetes Mellitus Additional Family Medical History / Comment(s): Mother of diabetes at age 55 yrs. <Lucien Morse - Last Filed: 05/25/16 08:09> General Exam Limitations: no limitations General appearance: alert, in no apparent distress Head exam: Present: atraumatic, normocephalic Eye exam: Present: normal appearance. Absent: scleral icterus, conjunctival injection ENT exam: Present: normal oropharynx Neck exam: Present: normal inspection Respiratory exam: Present: normal lung sounds bilaterally. Absent: respiratory distress, wheezes, rales, rhonchi, stridor Cardiovascular Exam: Present: regular rate, normal rhythm, normal heart sounds. Absent: systolic murmur, diastolic murmur, rubs, gallop GI/Abdominal exam: Present: soft, tenderness (Mild epigastric tenderness), guarding, normal bowel sounds. Absent: distended, rebound, rigid, mass, pulsatile mass, hernia Extremities exam: Present: normal inspection, normal capillary refill. Absent: pedal edema, calf tenderness Back exam: Present: normal inspection. Absent: CVA tenderness (R), CVA tenderness (L) Neurological exam: Present: alert Skin exam: Present: warm, dry, intact, normal color. Absent: rash <Lucien Morse - Last Filed: 05/25/16 08:09> Medical Decision Making - Lab Data Result diagrams: 05/25/16 05:05 05/25/16 05:05 <Lucien Morse - Last Filed: 05/25/16 08:09> - Lab Data Result diagrams: 05/25/16 05:05 05/25/16 05:05 - Radiology Data Radiology results: report reviewed (Scan of the abdomen and pelvis shows no acute process.), image reviewed (KUB shows opacity overlying right mid kidney.) <Nathan Damon - Last Filed: 05/25/16 08:29> - Medical Decision Making Patient reexamined by myself, Dr. Damon. No nausea at this time. Patient states she received Zofran by EMS. Abdomen is soft with mild epigastric tenderness. Patient updated on results. Patient states she does have an appointment with her primary care physician tomorrow and will keep this appointment. Patient is comfortable with discharge. Patient will be started on new antibiotic for possible urinary tract infection. Repeat culture has been ordered. (Nathan Damon) - Lab Data Lab Results 05/25/16 05/25/16 05/25/16 Range/Units 05:05 05:05 06:27 WBC 16.8 H (3.8-10.6) k/uL RBC 4.91 (3.80-5.40) m/uL Hgb 14.3 (11.4-16.0) gm/dL Hct 42.2 (34.0-46.0) % MCV 85.9 (80.0-100.0) fL MCH 29.1 (25.0-35.0) pg MCHC 33.8 (31.0-37.0) g/dL RDW 14.0 (11.5-15.5) % Plt Count 283 (150-450) k/uL Neutrophils % 84 % Lymphocytes % 6 % Monocytes % 7 % Eosinophils % 1 % Basophils % 0 % Neutrophils # 14.1 H (1.3-7.7) k/uL Lymphocytes # 1.0 (1.0-4.8) k/uL Monocytes # 1.3 H (0-1.0) k/uL Eosinophils # 0.2 (0-0.7) k/uL Basophils # 0.1 (0-0.2) k/uL Poikilocytosis Slight Sodium 146 H (137-145) mmol/L Potassium 3.3 L (3.5-5.1) mmol/L Chloride 106 (98-107) mmol/L Carbon Dioxide 24 (22-30) mmol/L Anion Gap 16 mmol/L BUN 18 H (7-17) mg/dL Creatinine 1.20 H (0.52-1.04) mg/dL Est GFR (MDRD) Af Amer 57 (>60 ml/min/1.73 sqM) Est GFR (MDRD) Non-Af 47 (>60 ml/min/1.73 sqM) Glucose 160 H (74-99) mg/dL Calcium 9.0 (8.4-10.2) mg/dL Total Bilirubin 0.5 (0.2-1.3) mg/dL AST 18 (14-36) U/L ALT 30 (9-52) U/L Alkaline Phosphatase 155 H (38-126) U/L Total Protein 7.0 (6.3-8.2) g/dL Albumin 3.9 (3.5-5.0) g/dL Amylase 70 (30-110) U/L Lipase 266 (23-300) U/L Urine Color Yellow Urine Appearance Turbid H (Clear) Urine pH 5.5 (5.0-8.0) Ur Specific [place] 1.024 (1.001-1.035) Urine Protein 1+ H (Negative) Urine Glucose (UA) Negative (Negative) Urine Ketones Negative (Negative) Urine Blood Negative (Negative) Urine Nitrite Negative (Negative) Urine Bilirubin Negative (Negative) Urine Urobilinogen 2.0 (<2.0) mg/dL Ur Leukocyte Esterase Small H (Negative) Urine RBC 3 (0-5) /hpf Urine WBC 21 H (0-5) /hpf Ur Squamous Epith Cells 36 H (0-4) /hpf Urine Bacteria Occasional H (None) /hpf Urine Mucus Many H (None) /hpf Disposition <Lucien Morse - Last Filed: 05/25/16 08:09> <Nathan Damon - Last Filed: 05/25/16 08:29> Clinical Impression: Abdominal pain, Nausea Disposition: HOME SELF-CARE Condition: Stable Instructions: Abdominal Pain (ED) Additional Instructions: Please follow-up with your primary care physician tomorrow as scheduled. Return for fevers, increased pain, uncontrolled vomiting, worsening symptoms or other concerns. Discontinue Cipro and start new antibiotic have your primary care physician follow-up with urine culture results. Prescriptions: Nitrofurantoin Macrocrystal [Macrodantin] 2 tab PO QID #80 capsule Referrals: Jim Bell MD [Primary Care Provider] - 1-2 days
[2016-05-25] MEDS ORDERED: FAMOTIDINE 20 MG/2 ML VIAL IV STA (08:24)
[2016-05-25 08:37] VITALS: BP 139/76; PULSE 87; TEMP 99.1
== END 2016-05-25 09:00 | disposition home or self-care (01) ==
LOC: EC 04:52 → SUPCPDRO 04:52 → EC 09:00
DX: R10.13 Epigastric pain (principal); R11.2 Nausea with vomiting, unspecified; R19.7 Diarrhea, unspecified; I25.10 Atherosclerotic heart disease of native coronary artery without angina pectoris; E11.9 Type 2 diabetes mellitus without complications; K21.9 Gastro-esophageal reflux disease without esophagitis; I10 Essential (primary) hypertension; F41.9 Anxiety disorder, unspecified; Z79.4 Long term (current) use of insulin; Z79.899 Other long term (current) drug therapy; Z79.02 Long term (current) use of antithrombotics/antiplatelets; Z88.2 Allergy status to sulfonamides; Z91.048 Other nonmedicinal substance allergy status; Z88.8 Allergy status to other drugs, medicaments and biological substances; Z91.030 Bee allergy status; Z88.6 Allergy status to analgesic agent; Z86.718 Personal history of other venous thrombosis and embolism; Z90.49 Acquired absence of other specified parts of digestive tract; Z95.5 Presence of coronary angioplasty implant and graft
CPT/HCPCS: 36415; 74000; 74176; 80053; 81001; 82150; 83690; 85025; 96374; 99284

== ENCOUNTER 2016-09-16 22:20 | Emergency (ER) | payer OTHER ==
[2016-09-16] MEDS ORDERED: cloNIDine HCL 0.1 MG TAB PO STA (23:27)
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
[2016-09-17 00:05] VITALS: BP 173/86; PULSE 70; RESP 18; TEMP 98
--- NOTE | 2016-09-17 00:57 | CT ---
EXAM: CT Cervical Spine Without Intravenous Contrast CLINICAL HISTORY: Reason: Pain TECHNIQUE: Axial computed tomography images of the cervical spine without intravenous contrast. Coronal and sagittal reformats were obtained. CTDI is 30.50 mGy and DLP is 771.50 mGy-cm. This CT exam was performed using one or more of the following dose reduction techniques: automated exposure control, adjustment of the mA and/or kV according to patient size, and/or use of iterative reconstruction technique. COMPARISON: No relevant prior studies available. FINDINGS: Vertebrae: No acute fracture. No subluxation. Discs/spinal canal/neural foramina: Multilevel degenerative changes, greatest at C6-C7 with large right paracentral disc osteophyte complex causing severe canal narrowing and moderate right neural foraminal narrowing. Sinuses: Incidental note of small air-fluid level in the right sphenoid sinus. Correlate for sinusitis. Lung apices: Unremarkable as visualized. IMPRESSION: 1. No acute fracture or malalignment. 2. Multilevel degenerative changes, greatest at C6-C7 with large right paracentral disc osteophyte complex causing severe canal narrowing and moderate right neural foraminal narrowing. 3. Incidental note of small air-fluid level in the right sphenoid sinus. Correlate for sinusitis.
== END 2016-09-17 00:52 | disposition left against medical advice (07) ==
LOC: EC 22:20
DX: S16.1XXA Strain of muscle, fascia and tendon at neck level, initial encounter (principal); E11.9 Type 2 diabetes mellitus without complications; I10 Essential (primary) hypertension; K21.9 Gastro-esophageal reflux disease without esophagitis; I25.10 Atherosclerotic heart disease of native coronary artery without angina pectoris; Z86.73 Personal history of transient ischemic attack (TIA), and cerebral infarction without residual deficits; Z85.41 Personal history of malignant neoplasm of cervix uteri; Z91.048 Other nonmedicinal substance allergy status; Z88.8 Allergy status to other drugs, medicaments and biological substances; Z88.6 Allergy status to analgesic agent; Z88.2 Allergy status to sulfonamides; Z91.030 Bee allergy status; Z91.018 Allergy to other foods; Z88.5 Allergy status to narcotic agent; Z79.02 Long term (current) use of antithrombotics/antiplatelets; Z79.4 Long term (current) use of insulin; Z79.899 Other long term (current) drug therapy; Z53.29 Procedure and treatment not carried out because of patient's decision for other reasons; X50.0XXA Overexertion from strenuous movement or load, initial encounter
CPT/HCPCS: 72125; 99284

== ENCOUNTER 2016-10-15 20:02 | Emergency (ER) | payer OTHER ==
[2016-10-15 20:19] VITALS: BP 178/72; PULSE 73; RESP 18; TEMP 98.7
--- NOTE | 2016-10-15 22:00 | ED ---
General Adult HPI - General Chief complaint: Arrhythmia/Palpitations Stated complaint: Chest Pain Time Seen by Provider: 10/15/16 21:38 Source: patient, family, EMS, RN notes reviewed Mode of arrival: EMS Limitations: no limitations - History of Present Illness Initial comments: Patient is a pleasant 56-year-old female presenting to the emergency department with chest discomfort. Symptoms started sometime between 2:30 and 6. Symptoms lasted about an hour. Patient attributes her symptoms to eating fried doughnuts and stress. Patient has had increased stress with friends daughter who just moved out of the house and has problems with drugs. Patient states earlier she felt chest discomfort, shortness of breath, sweaty, nauseated and tingly all over. Patient admits to having increased stress recently. Patient states symptoms have resolved on their own with relaxation and she is currently symptom-free. - Related Data Home Medications Medication Instructions Recorded Confirmed Clopidogrel Bisulfate [Plavix] 75 mg PO DAILY 06/11/13 10/15/16 ALPRAZolam [Xanax] 0.25 mg PO TID PRN 09/27/14 10/15/16 Albuterol Inhaler [Ventolin Hfa 2 puff INHALATION RT-Q6H PRN 09/27/14 10/15/16 Inhaler] Pantoprazole Sodium [Protonix] 40 mg PO BID 04/05/15 10/15/16 Albuterol Nebulized [Ventolin 2.5 mg INHALATION RT-Q6H PRN 05/07/15 10/15/16 Nebulized] Metoprolol Tartrate [Lopressor] 25 mg PO BID 05/07/15 10/15/16 Insulin Glargine [Lantus] 50 unit SQ HS 08/26/15 10/15/16 Topiramate [Topamax] 25 mg PO HS 10/09/15 10/15/16 Atorvastatin [Lipitor] 40 mg PO DAILY 10/21/15 10/15/16 Losartan Potassium [Cozaar] 25 mg PO DAILY 02/07/16 10/15/16 Topiramate [Topamax] 75 mg PO DAILY 03/04/16 10/15/16 Cyanocobalamin [Vitamin B-12] 500 mcg PO DAILY 09/16/16 10/15/16 Potassium 99 mg PO DAILY 09/16/16 10/15/16 amLODIPine BESYLATE [Norvasc] 5 mg PO DAILY 09/16/16 10/15/16 Previous Rx's Medication Instructions Recorded Aspirin 325 mg PO DAILY tab 10/11/15 Nitroglycerin Sl Tabs [Nitrostat] 0.4 mg SUBLINGUAL Q5M PRN #25 tab 10/11/15 Magnesium Oxide 400 mg PO DAILY #20 tablet 05/10/16 Allergies Allergy/AdvReac Type Severity Reaction Status Date / Time adhesive tape Allergy Rash/Hives Verified 10/15/16 21:08 indomethacin Allergy Unknown Verified 10/15/16 21:08 insulin glargine Allergy Rash/Hives Verified 10/15/16 21:08 [From Basaglar KwikPen] ipratropium bromide Allergy Unknown Verified 10/15/16 21:08 [From Atrovent] ketorolac tromethamine Allergy Anaphylaxis Verified 10/15/16 21:08 [From Toradol] naproxen [From Naprosyn] Allergy Itching Verified 10/15/16 21:08 pregabalin [From Lyrica] Allergy Unknown Verified 10/15/16 21:08 Sulfa (Sulfonamide Allergy Anaphylaxis Verified 10/15/16 21:08 Antibiotics) sulfamethoxazole Allergy Unknown Verified 10/15/16 21:08 [From Bactrim] tramadol Allergy Unknown Verified 10/15/16 21:08 trimethoprim [From Bactrim] Allergy Unknown Verified 10/15/16 21:08 venom-honey bee Allergy Anaphylaxis Verified 10/15/16 21:08 [bee venom (honey bee)] budesonide [From Symbicort] AdvReac Vomiting Verified 10/15/16 21:08 formoterol fumarate AdvReac Vomiting Verified 10/15/16 21:08 [From Symbicort] sucralose AdvReac Rapid Verified 10/15/16 21:08 [From Splenda (sucralose)] Heart Rate tramadol HCl [From Ultram] AdvReac SEIZURES Verified 10/15/16 21:08 Review of Systems ROS Statement: Those systems with pertinent positive or pertinent negative responses have been documented in the HPI. ROS Other: All systems not noted in ROS Statement are negative. Constitutional: Denies: fever Eyes: Denies: eye pain ENT: Denies: ear pain Respiratory: Reports: dyspnea Cardiovascular: Reports: chest pain, palpitations Endocrine: Denies: fatigue Gastrointestinal: Reports: nausea Genitourinary: Denies: dysuria Musculoskeletal: Denies: back pain Skin: Denies: rash Neurological: Denies: weakness Psychiatric: Reports: anxiety Past Medical History Past Medical History: Coronary Artery Disease (CAD), Cancer, COPD, CVA/TIA, Diabetes Mellitus, GERD/Reflux, Hypertension Additional Past Medical History / Comment(s): HX: acute renal problem, neuropathy, CERVICAL CA. Perthes's dx affected short term memory. bilateral glaucoma.recent fall injured pinky finger rt hand. Last Myocardial Infarction Date:: 2001 or 2003 History of Any Multi-Drug Resistant Organisms: None Reported Past Surgical History: Cholecystectomy, Coronary Bypass/CABG, Heart Catheterization With Stent, Orthopedic Surgery Additional Past Surgical History / Comment(s): LEFT HIP ARTHOPLASTY. ORIF RIGHT ANKLE. Cervical cancer surgies. BILATERAL LASER EYE TX FOR GLAUCOMA. Laproscopy. TSS. stent to LAD in 10/2015 Past Anesthesia/Blood Transfusion Reactions: No Reported Reaction Date of Last Stent Placement:: 10/2015 Past Psychological History: Anxiety Smoking Status: Never smoker Past Alcohol Use History: None Reported Past Drug Use History: None Reported - Past Family History Father History Unknown: Yes Family Medical History: COPD, Renal Disease Additional Family Medical History / Comment(s): Father at age 80yrs. of COPD and kidney faiilure. Mother History Unknown: Yes Family Medical History: Diabetes Mellitus Additional Family Medical History / Comment(s): Mother of diabetes at age 55 yrs. General Exam Limitations: no limitations General appearance: alert, in no apparent distress Head exam: Present: atraumatic Eye exam: Present: normal appearance, PERRL, other (Disconjugate gaze) ENT exam: Present: normal oropharynx Neck exam: Present: normal inspection Respiratory exam: Present: normal lung sounds bilaterally Cardiovascular Exam: Present: regular rate, normal rhythm Expanded Peripheral pulses: 2+: Radial (R), Radial (L), Dorsalis Pedis (R), Dorsalis Pedis (L) GI/Abdominal exam: Present: soft. Absent: tenderness Extremities exam: Present: normal inspection. Absent: pedal edema, calf tenderness Neurological exam: Present: alert Psychiatric exam: Present: normal affect, normal mood Skin exam: Present: normal color Course Vital Signs 10/15/16 20:13 Temperature 98.7 F Pulse Rate 73 Respiratory 18 Rate Blood Pressure 178/72 O2 Sat by Pulse 99 Oximetry EKG Findings - EKG Comments: EKG Findings:: Normal sinus rhythm 61. ID 148. QRS 78. QTC 466. QTc 469. Normal axis. Borderline inferior Q waves. No acute ST change. Medical Decision Making - Medical Decision Making Patient states she is symptom-free at this time and would like to leave. Patient attributes her symptoms to stress. Patient is made aware that EKG alone cannot rule out acute heart attack. Patient is strongly advised to have x -ray and blood work and further evaluation. Patient refuses this and would like to leave. Patient will leave AGAINST MEDICAL ADVICE. Patient does demonstrate medical decision making. Patient is made aware that heart attack and other disease processes have not been ruled out at this time and could be at risk in the near future. Patient is agreeable to calling her doctor in the morning. Disposition Clinical Impression: Chest pain Disposition: Left Against Medical Advice Instructions: Chest Pain (ED), Anxiety (ED) Additional Instructions: Please follow-up with your doctor in the morning. Return for chest pain, difficulty breathing, sweating or nausea, return of or worsening symptoms or any other concerns. You are leaving AGAINST MEDICAL ADVICE. Referrals: Jim Bell MD [Primary Care Provider] - 1-2 days Time of Disposition: 22:00
== END 2016-10-15 22:54 | disposition left against medical advice (07) ==
LOC: EC 20:02
DX: R07.89 Other chest pain (principal); R06.02 Shortness of breath; F43.9 Reaction to severe stress, unspecified; R20.2 Paresthesia of skin; I25.10 Atherosclerotic heart disease of native coronary artery without angina pectoris; J44.9 Chronic obstructive pulmonary disease, unspecified; E11.9 Type 2 diabetes mellitus without complications; K21.9 Gastro-esophageal reflux disease without esophagitis; I10 Essential (primary) hypertension; E11.40 Type 2 diabetes mellitus with diabetic neuropathy, unspecified; F41.9 Anxiety disorder, unspecified; Z79.01 Long term (current) use of anticoagulants; Z79.4 Long term (current) use of insulin; Z79.899 Other long term (current) drug therapy; Z88.2 Allergy status to sulfonamides; Z88.6 Allergy status to analgesic agent; Z88.8 Allergy status to other drugs, medicaments and biological substances; Z91.030 Bee allergy status; Z91.048 Other nonmedicinal substance allergy status; Z95.5 Presence of coronary angioplasty implant and graft; Z85.41 Personal history of malignant neoplasm of cervix uteri; Z86.73 Personal history of transient ischemic attack (TIA), and cerebral infarction without residual deficits
CPT/HCPCS: 93005; 99285

== ENCOUNTER 2016-10-27 23:11 | Emergency (ER) | payer OTHER ==
[2016-10-27] MEDS ORDERED: MORPHINE SULFATE 4 MG/ML SYRINGE IV STA (23:13)
[2016-10-27] MEDS ORDERED: ONDANSETRON 4 MG/2 ML VIAL IVP STA (23:14)
--- NOTE | 2016-10-27 23:32 | ED ---
General Adult HPI - General Chief complaint: Abdominal Pain Stated complaint: Stomach Pain/Chest Pain Nausea Time Seen by Provider: 10/27/16 23:13 Source: patient, RN notes reviewed, old records reviewed Mode of arrival: ambulatory Limitations: no limitations - History of Present Illness Initial comments: This is a 56-year-old female here for evaluation of severe valve pain, epigastric and radiating to back chest pain. Patient has mild nausea no vomiting. No recent diarrhea and no fevers. No shortness of breath or cough or congestion. Patient denies history of fever, does have history of gallbladder disease with cholecystectomy. Denies drinking alcohol and denies drug abuse - Related Data Home Medications Medication Instructions Recorded Confirmed Clopidogrel Bisulfate [Plavix] 75 mg PO DAILY 06/11/13 10/27/16 ALPRAZolam [Xanax] 0.25 mg PO TID PRN 09/27/14 10/27/16 Albuterol Inhaler [Ventolin Hfa 2 puff INHALATION RT-Q6H PRN 09/27/14 10/27/16 Inhaler] Pantoprazole Sodium [Protonix] 40 mg PO BID 04/05/15 10/27/16 Albuterol Nebulized [Ventolin 2.5 mg INHALATION RT-Q6H PRN 05/07/15 10/27/16 Nebulized] Metoprolol Tartrate [Lopressor] 25 mg PO BID 05/07/15 10/27/16 Insulin Glargine [Lantus] 50 unit SQ HS 08/26/15 10/27/16 Topiramate [Topamax] 25 mg PO HS 10/09/15 10/27/16 Atorvastatin [Lipitor] 40 mg PO DAILY 10/21/15 10/27/16 Losartan Potassium [Cozaar] 25 mg PO DAILY 02/07/16 10/27/16 Topiramate [Topamax] 75 mg PO DAILY 03/04/16 10/27/16 Cyanocobalamin [Vitamin B-12] 500 mcg PO DAILY 09/16/16 10/27/16 Potassium 99 mg PO DAILY 09/16/16 10/27/16 amLODIPine BESYLATE [Norvasc] 5 mg PO DAILY 09/16/16 10/27/16 Ranolazine [Ranexa] 500 mg PO BID 10/27/16 10/27/16 Previous Rx's Medication Instructions Recorded Aspirin 325 mg PO DAILY tab 10/11/15 Nitroglycerin Sl Tabs [Nitrostat] 0.4 mg SUBLINGUAL Q5M PRN #25 tab 10/11/15 Magnesium Oxide 400 mg PO DAILY #20 tablet 05/10/16 Allergies Allergy/AdvReac Type Severity Reaction Status Date / Time adhesive tape Allergy Rash/Hives Verified 10/27/16 23:36 indomethacin Allergy Unknown Verified 10/27/16 23:36 insulin glargine Allergy Rash/Hives Verified 10/27/16 23:36 [From Basaglar KwikPen] ipratropium bromide Allergy Unknown Verified 10/27/16 23:36 [From Atrovent] ketorolac tromethamine Allergy Anaphylaxis Verified 10/27/16 23:36 [From Toradol] naproxen [From Naprosyn] Allergy Itching Verified 10/27/16 23:36 pregabalin [From Lyrica] Allergy Unknown Verified 10/27/16 23:36 Sulfa (Sulfonamide Allergy Anaphylaxis Verified 10/27/16 23:36 Antibiotics) sulfamethoxazole Allergy Unknown Verified 10/27/16 23:36 [From Bactrim] tramadol Allergy Unknown Verified 10/27/16 23:36 trimethoprim [From Bactrim] Allergy Unknown Verified 10/27/16 23:36 venom-honey bee Allergy Anaphylaxis Verified 10/27/16 23:36 [bee venom (honey bee)] budesonide [From Symbicort] AdvReac Vomiting Verified 10/27/16 23:36 formoterol fumarate AdvReac Vomiting Verified 10/27/16 23:36 [From Symbicort] sucralose AdvReac Rapid Verified 10/27/16 23:36 [From Splenda (sucralose)] Heart Rate tramadol HCl [From Ultram] AdvReac SEIZURES Verified 10/27/16 23:36 Review of Systems ROS Statement: Those systems with pertinent positive or pertinent negative responses have been documented in the HPI. ROS Other: All systems not noted in ROS Statement are negative. Past Medical History Past Medical History: Coronary Artery Disease (CAD), Cancer, COPD, CVA/TIA, Diabetes Mellitus, GERD/Reflux, Hypertension Additional Past Medical History / Comment(s): HX: acute renal problem, neuropathy, CERVICAL CA. Perthes's dx affected short term memory. bilateral glaucoma.recent fall injured pinky finger rt hand. Last Myocardial Infarction Date:: 2001 or 2003 History of Any Multi-Drug Resistant Organisms: None Reported Past Surgical History: Cholecystectomy, Coronary Bypass/CABG, Heart Catheterization With Stent, Orthopedic Surgery Additional Past Surgical History / Comment(s): LEFT HIP ARTHOPLASTY. ORIF RIGHT ANKLE. Cervical cancer surgies. BILATERAL LASER EYE TX FOR GLAUCOMA. Laproscopy. TSS. stent to LAD in 10/2015 Past Anesthesia/Blood Transfusion Reactions: No Reported Reaction Date of Last Stent Placement:: 10/2015 Past Psychological History: Anxiety Smoking Status: Never smoker Past Alcohol Use History: None Reported Past Drug Use History: None Reported - Past Family History Father History Unknown: Yes Family Medical History: COPD, Renal Disease Additional Family Medical History / Comment(s): Father at age 80yrs. of COPD and kidney faiilure. Mother History Unknown: Yes Family Medical History: Diabetes Mellitus Additional Family Medical History / Comment(s): Mother of diabetes at age 55 yrs. General Exam Limitations: no limitations General appearance: alert, in no apparent distress Head exam: Present: atraumatic, normocephalic, normal inspection Eye exam: Present: normal appearance, PERRL, EOMI. Absent: scleral icterus, conjunctival injection, periorbital swelling ENT exam: Present: normal exam, mucous membranes moist Neck exam: Present: normal inspection. Absent: tenderness, meningismus, lymphadenopathy Respiratory exam: Present: normal lung sounds bilaterally. Absent: respiratory distress, wheezes, rales, rhonchi, stridor Cardiovascular Exam: Present: regular rate, normal rhythm, normal heart sounds. Absent: systolic murmur, diastolic murmur, rubs, gallop, clicks GI/Abdominal exam: Present: soft, tenderness, normal bowel sounds. Absent: distended, guarding, rebound, rigid Extremities exam: Present: normal inspection, full ROM, normal capillary refill. Absent: tenderness, pedal edema, joint swelling, calf tenderness Back exam: Present: normal inspection Neurological exam: Present: alert, oriented X3, CN II-XII intact Psychiatric exam: Present: normal affect, normal mood Skin exam: Present: warm, dry, intact, normal color. Absent: rash Course Vital Signs 10/27/16 10/28/16 10/28/16 23:20 00:08 00:43 Temperature 97.8 F 97.7 F Pulse Rate 68 56 L 78 Respiratory 20 18 18 Rate Blood Pressure 135/86 156/108 149/93 O2 Sat by Pulse 99 97 98 Oximetry 10/28/16 01:28 Temperature 97.8 F Pulse Rate 71 Respiratory 17 Rate Blood Pressure 125/62 O2 Sat by Pulse 97 Oximetry - Reevaluation(s) Reevaluation #1: 10/28/16 01:47 pain is now controlled EKG Findings - EKG Comments: EKG Findings:: EKG shows normal sinus rhythm rate 78, [place] 136, QRS 80, QTC 440 Medical Decision Making - Medical Decision Making 56 female to the ED co NVD, abd pain, no fever, labs and CT are normal, ok for discharge - Lab Data Result diagrams: 10/27/16 23:33 10/27/16 23:33 Lab Results 10/27/16 10/27/16 10/27/16 Range/Units 23:33 23:33 23:33 WBC 7.6 (3.8-10.6) k/uL RBC 4.68 (3.80-5.40) m/uL Hgb 13.9 (11.4-16.0) gm/dL Hct 41.4 (34.0-46.0) % MCV 88.5 (80.0-100.0) fL MCH 29.8 (25.0-35.0) pg MCHC 33.7 (31.0-37.0) g/dL RDW 14.2 (11.5-15.5) % Plt Count 241 (150-450) k/uL Neutrophils % 61 % Lymphocytes % 29 % Monocytes % 6 % Eosinophils % 2 % Basophils % 1 % Neutrophils # 4.7 (1.3-7.7) k/uL Lymphocytes # 2.2 (1.0-4.8) k/uL Monocytes # 0.4 (0-1.0) k/uL Eosinophils # 0.1 (0-0.7) k/uL Basophils # 0.0 (0-0.2) k/uL PT (9.0-12.0) sec INR (<1.2) APTT (22.0-30.0) sec D-Dimer (<0.60) mg/L FEU Sodium 144 (137-145) mmol/L Potassium 5.1 (3.5-5.1) mmol/L Chloride 108 H (98-107) mmol/L Carbon Dioxide 23 (22-30) mmol/L Anion Gap 13 mmol/L BUN 17 (7-17) mg/dL Creatinine 1.00 (0.52-1.04) mg/dL Est GFR (MDRD) Af Amer >60 (>60 ml/min/1.73 sqM) Est GFR (MDRD) Non-Af 58 (>60 ml/min/1.73 sqM) Glucose 246 H (74-99) mg/dL Plasma Lactic Acid Juan Ramon (0.7-2.0) mmol/L Calcium 9.5 (8.4-10.2) mg/dL Magnesium 1.7 (1.6-2.3) mg/dL Total Bilirubin 0.3 (0.2-1.3) mg/dL AST 17 (14-36) U/L ALT 31 (9-52) U/L Alkaline Phosphatase 138 H (38-126) U/L Total Creatine Kinase 47 (30-135) U/L CK-MB (CK-2) 1.0 (0.0-2.4) ng/mL CK-MB (CK-2) Rel Index 2.1 Troponin I <0.012 (0.000-0.034) ng/mL NT-Pro-B Natriuret Pep pg/mL Total Protein 7.2 (6.3-8.2) g/dL Albumin 3.9 (3.5-5.0) g/dL Lipase 303 H (23-300) U/L 10/27/16 10/27/16 10/27/16 Range/Units 23:33 23:33 23:33 WBC (3.8-10.6) k/uL RBC (3.80-5.40) m/uL Hgb (11.4-16.0) gm/dL Hct (34.0-46.0) % MCV (80.0-100.0) fL MCH (25.0-35.0) pg MCHC (31.0-37.0) g/dL RDW (11.5-15.5) % Plt Count (150-450) k/uL Neutrophils % % Lymphocytes % % Monocytes % % Eosinophils % % Basophils % % Neutrophils # (1.3-7.7) k/uL Lymphocytes # (1.0-4.8) k/uL Monocytes # (0-1.0) k/uL Eosinophils # (0-0.7) k/uL Basophils # (0-0.2) k/uL PT 10.4 (9.0-12.0) sec INR 1.0 (<1.2) APTT 24.7 (22.0-30.0) sec D-Dimer 0.22 (<0.60) mg/L FEU Sodium (137-145) mmol/L Potassium (3.5-5.1) mmol/L Chloride (98-107) mmol/L Carbon Dioxide (22-30) mmol/L Anion Gap mmol/L BUN (7-17) mg/dL Creatinine (0.52-1.04) mg/dL Est GFR (MDRD) Af Amer (>60 ml/min/1.73 sqM) Est GFR (MDRD) Non-Af (>60 ml/min/1.73 sqM) Glucose (74-99) mg/dL Plasma Lactic Acid Juan Ramon 1.9 (0.7-2.0) mmol/L Calcium (8.4-10.2) mg/dL Magnesium (1.6-2.3) mg/dL Total Bilirubin (0.2-1.3) mg/dL AST (14-36) U/L ALT (9-52) U/L Alkaline Phosphatase (38-126) U/L Total Creatine Kinase (30-135) U/L CK-MB (CK-2) (0.0-2.4) ng/mL CK-MB (CK-2) Rel Index Troponin I (0.000-0.034) ng/mL NT-Pro-B Natriuret Pep 331 pg/mL Total Protein (6.3-8.2) g/dL Albumin (3.5-5.0) g/dL Lipase (23-300) U/L - Radiology Data Radiology results: report reviewed (XR shows no acute diseaese, CT abd pelvis negative for acute disease), image reviewed Disposition Clinical Impression: Abdominal pain, Intractable nausea and vomiting Disposition: HOME SELF-CARE Condition: Fair Instructions: Abdominal Pain (ED) Referrals: Jim Bell MD [Primary Care Provider] - 1-2 days
[2016-10-27 23:42] LABS: Basophils % (A) 1 %; CH 30.6; CHCM 34.8; Eosinophils # (A) 0.1 k/uL (0-0.7); Eosinophils % (A) 2 %; HCT 41.4 % (34.0-46.0); HDW 3.01; HGB 13.9 gm/dL (11.4-16.0); Luc # (Auto) 0.11; Luc % (Auto) 2; Lymphocytes # (A) 2.2 k/uL (1.0-4.8); Lymphocytes % (A) 29 %; MCH 29.8 pg (25.0-35.0); MCHC 33.7 g/dL (31.0-37.0); MCV 88.5 fL (80.0-100.0); Mean Platelet Volume 8.3; Monocytes # (A) 0.4 k/uL (0-1.0); Monocytes % (A) 6 %; Neutrophils # (A) 4.7 k/uL (1.3-7.7); Neutrophils % (A) 61 %; RBC 4.68 m/uL (3.80-5.40); RDW 14.2 % (11.5-15.5); WBC 7.6 k/uL (3.8-10.6); WBC (Perox) 7.59
[2016-10-27 23:51] LABS: ALT 31 U/L (9-52); AST 17 U/L (14-36); Alkaline Phosphatase 138 U/L (38-126); Anion Gap 13 mmol/L; Blood Urea Nitrogen 17 mg/dL (7-17); Calcium 9.5 mg/dL (8.4-10.2); Carbon Dioxide 23 mmol/L (22-30); Chloride 108 mmol/L (98-107); Glucose 246 mg/dL (74-99); Magnesium 1.7 mg/dL (1.6-2.3); Non-African American GFR(MDRD) 58 (>60 ml/min/1.73 sqM); Potassium 5.1 mmol/L (3.5-5.1); Sodium 144 mmol/L (137-145); Total Bilirubin 0.3 mg/dL (0.2-1.3); Total Protein 7.2 g/dL (6.3-8.2)
[2016-10-27 23:56] LABS: Partial Thromboplastin Time 24.7 sec (22.0-30.0); Prothrombin Time 10.4 sec (9.0-12.0)
[2016-10-28 00:01] LABS: Creatine Kinase 47 U/L (30-135)
[2016-10-28 00:14] LABS: Troponin I <0.012 ng/mL (0.000-0.034)
[2016-10-28] MEDS ORDERED: HYDROmorphone 2 MG/ML 1 ML SYRINGE IVP STA (00:30)
[2016-10-28] MEDS ORDERED: RX INFO: IV CONTRAST WAS GIVEN 1 EACH MISC MISCELLANE PRN (00:39)
--- NOTE | 2016-10-28 00:43 | XR ---
EXAM: XR Abdomen Complete With XR Chest CLINICAL HISTORY: Abdominal pain TECHNIQUE: Frontal view of the chest, frontal view of the abdomen/pelvis and upright view of the abdomen. COMPARISON: 05/10/2016 FINDINGS: Lungs: Left basilar atelectasis and/or infiltrate suspected, more conspicuous on this study than the prior. No consolidation. Pleural space: Unremarkable. No pneumothorax. Heart: Stable. No cardiomegaly. Mediastinum: Unchanged. Intraperitoneal space: No free air. Gastrointestinal tract: Stool and air seen throughout the colon extending to the rectum. This may represent mild constipation. No dilation. Organs: Patient status post cholecystectomy. Bones/joints: Sternotomy wires are seen. Patient status post left total hip arthroplasty. Degenerative changes seen throughout the osseous structures. Mild dextroscoliosis of the lumbar spine is seen. Tubes, lines and devices: Monitor leads overlie the chest limiting evaluation. IMPRESSION: Stool and air throughout the colon extending all the way to the rectum. This may represent mild constipation. Left basilar atelectasis and/or infiltrates suspected, more conspicuous on this study than the prior. Clinical correlation.
--- NOTE | 2016-10-28 02:15 | CT ---
EXAM: CT Abdomen and Pelvis With Intravenous Contrast CLINICAL HISTORY: General abdominal pain with nausea TECHNIQUE: Axial computed tomography images of the abdomen and pelvis with intravenous contrast. DLP is 1889.00 mGy-cm. This CT exam was performed using one or more of the following dose reduction techniques: automated exposure control, adjustment of the mA and/or kV according to patient size, and/or use of iterative reconstruction technique. COMPARISON: 05/25/2016. FINDINGS: Lower thorax: No acute findings. ABDOMEN: Liver: Unchanged. No mass. Gallbladder and bile ducts: Patient status post cholecystectomy. No ductal dilation. Pancreas: Unchanged. No mass. No ductal dilation. Spleen: Prior granulomatous disease with evidence of calcifications in the spleen, unchanged. Adrenals: Unremarkable. No mass. Kidneys and ureters: Unchanged. Cortical thinning of the left kidney is likely present. No solid mass. No hydronephrosis. Stomach and bowel: Evaluation of the bowel is limited without the use of oral contrast material. Within this limitation, air-fluid levels are seen throughout the small bowel, similar which are mildly dilated, measuring up to 2.7 cm diameter. There is no evidence of a transition point. Air-fluid levels are also seen in the transverse colon. Constellation of findings are suggestive of early infectious versus inflammatory enterocolitis. Diarrheal disease would be included in differential. The stomach is distended with food particles. Appendix: A normal appendix is seen. PELVIS: Bladder: Unremarkable. No mass. Reproductive: Asymmetric prominence of the left ovary is again noted. ABDOMEN and PELVIS: Intraperitoneal space: Unremarkable. No free air. No significant fluid collection. Bones/joints: Patient status post left total hip arthroplasty. Sternotomy wires are noted. Osseous structures are unchanged. Soft tissues: Unremarkable. Vasculature: Mild atherosclerotic vascular calcifications involving the intra-abdominal aorta. No abdominal aortic aneurysm. Lymph nodes: Unchanged. No grossly enlarged lymph nodes. Other findings: Pelvic floor relaxation is again noted. IMPRESSION: 1. Air-fluid levels throughout the small bowel, some of which are mildly dilated, measuring up to 2.7 cm diameter. No evidence of a transition point. Air-fluid levels are also seen in the transverse colon. Constellation of findings are suggestive of early infectious versus inflammatory enterocolitis. Diarrheal disease would be included in differential. Correlate clinically. 2. Other chronic findings, as above.
[2016-10-28] MEDS ORDERED: MAGNESIUM CITRATE 296 ML BOTTLE PO ONE (02:31)
[2016-10-28] MEDS ORDERED: SENNOSIDES-DOCUSATE SODIUM 1 EACH TAB PO STA (02:31)
[2016-10-28] MEDS ORDERED: GLYCERIN ADULT SUPPOSITORY 1 EACH RECTAL STA (02:31)
[2016-10-28] MEDS ORDERED: LORazepam 2 MG/ML SYRINGE IV STA (02:42)
[2016-10-28] MEDS ORDERED: ONDANSETRON 4 MG/2 ML VIAL IVP STA (02:42)
[2016-10-28 02:45] VITALS: PULSE 56; RESP 18; TEMP 97
[2016-10-28 02:53] VITALS: BP 122/63
== END 2016-10-28 03:10 | disposition home or self-care (01) ==
LOC: EC 23:11
DX: R10.13 Epigastric pain (principal); R11.2 Nausea with vomiting, unspecified; R07.9 Chest pain, unspecified; M54.9 Dorsalgia, unspecified; I10 Essential (primary) hypertension; E11.9 Type 2 diabetes mellitus without complications; I25.10 Atherosclerotic heart disease of native coronary artery without angina pectoris; K21.9 Gastro-esophageal reflux disease without esophagitis; Z79.02 Long term (current) use of antithrombotics/antiplatelets; Z79.4 Long term (current) use of insulin; Z79.899 Other long term (current) drug therapy; Z88.1 Allergy status to other antibiotic agents; Z88.2 Allergy status to sulfonamides; Z88.5 Allergy status to narcotic agent; Z88.6 Allergy status to analgesic agent; Z88.8 Allergy status to other drugs, medicaments and biological substances; Z91.030 Bee allergy status; Z91.048 Other nonmedicinal substance allergy status; Z86.73 Personal history of transient ischemic attack (TIA), and cerebral infarction without residual deficits; Z85.41 Personal history of malignant neoplasm of cervix uteri; Z90.49 Acquired absence of other specified parts of digestive tract; Z95.1 Presence of aortocoronary bypass graft; Z98.890 Other specified postprocedural states
CPT/HCPCS: 99285; 96374; 96375 ×4; 36415; 93005; 85379; 83880; 80053; 82550; 82553; 83605; 83690; 83735; 84484; 85025; 85610; 85730; 74022; 74177; J2060; J2270; J1170; Q9967; J2405 ×2

== ENCOUNTER 2016-12-19 20:00 | Emergency (ER) | payer OTHER ==
[2016-12-19 20:08] VITALS: BP 203/95; PULSE 73; RESP 18; TEMP 98.5
--- NOTE | 2016-12-19 20:30 | ED ---
General Adult HPI - General Chief complaint: Headache Stated complaint: Headache Time Seen by Provider: 12/19/16 20:05 Source: patient, RN notes reviewed Mode of arrival: ambulatory Limitations: no limitations - History of Present Illness Initial comments: This is a 56-year-old female presents emergency Department complaining of scalp pain on the right side of her head in the temporal region. Patient states that she was trying to get into a car she bumped the side of her head on the door. Patient states she did not lose consciousness she was not dazed she did not hurt her neck. Patient denies any visual disturbance patient disturbance or numbness or weakness. Patient states it hurts when she huizar her hair there and it hurts if she touches the area. Patient states it doesn't hurt at all if he is not touching it. Patient denies any nausea or vomiting. - Related Data Home Medications Medication Instructions Recorded Confirmed Clopidogrel Bisulfate [Plavix] 75 mg PO DAILY 06/11/13 12/19/16 ALPRAZolam [Xanax] 0.25 mg PO TID PRN 09/27/14 12/19/16 Albuterol Inhaler [Ventolin Hfa 2 puff INHALATION RT-Q6H PRN 09/27/14 12/19/16 Inhaler] Pantoprazole Sodium [Protonix] 40 mg PO BID 04/05/15 12/19/16 Albuterol Nebulized [Ventolin 2.5 mg INHALATION RT-Q6H PRN 05/07/15 12/19/16 Nebulized] Metoprolol Tartrate [Lopressor] 25 mg PO BID 05/07/15 12/19/16 Insulin Glargine [Lantus] 50 unit SQ HS 08/26/15 12/19/16 Topiramate [Topamax] 25 mg PO HS 10/09/15 12/19/16 Atorvastatin [Lipitor] 40 mg PO DAILY 10/21/15 12/19/16 Losartan Potassium [Cozaar] 25 mg PO DAILY 02/07/16 12/19/16 Topiramate [Topamax] 75 mg PO DAILY 03/04/16 12/19/16 Cyanocobalamin [Vitamin B-12] 500 mcg PO DAILY 09/16/16 12/19/16 Potassium 99 mg PO DAILY 09/16/16 12/19/16 amLODIPine BESYLATE [Norvasc] 5 mg PO DAILY 09/16/16 12/19/16 Ranolazine [Ranexa] 500 mg PO BID 10/27/16 12/19/16 Previous Rx's Medication Instructions Recorded Aspirin 325 mg PO DAILY tab 10/11/15 Nitroglycerin Sl Tabs [Nitrostat] 0.4 mg SUBLINGUAL Q5M PRN #25 tab 10/11/15 Magnesium Oxide 400 mg PO DAILY #20 tablet 05/10/16 Allergies Allergy/AdvReac Type Severity Reaction Status Date / Time adhesive tape Allergy Rash/Hives Verified 12/19/16 20:08 indomethacin Allergy Unknown Verified 12/19/16 20:08 insulin glargine Allergy Rash/Hives Verified 12/19/16 20:08 [From Basaglar KwikPen] ipratropium bromide Allergy Unknown Verified 12/19/16 20:08 [From Atrovent] ketorolac tromethamine Allergy Anaphylaxis Verified 12/19/16 20:08 [From Toradol] naproxen [From Naprosyn] Allergy Itching Verified 12/19/16 20:08 pregabalin [From Lyrica] Allergy Unknown Verified 12/19/16 20:08 Sulfa (Sulfonamide Allergy Anaphylaxis Verified 12/19/16 20:08 Antibiotics) sulfamethoxazole Allergy Unknown Verified 12/19/16 20:08 [From Bactrim] tramadol Allergy Unknown Verified 12/19/16 20:08 trimethoprim [From Bactrim] Allergy Unknown Verified 12/19/16 20:08 venom-honey bee Allergy Anaphylaxis Verified 12/19/16 20:08 [bee venom (honey bee)] budesonide [From Symbicort] AdvReac Vomiting Verified 12/19/16 20:08 formoterol fumarate AdvReac Vomiting Verified 12/19/16 20:08 [From Symbicort] sucralose AdvReac Rapid Verified 12/19/16 20:08 [From Splenda (sucralose)] Heart Rate tramadol HCl [From Ultram] AdvReac SEIZURES Verified 12/19/16 20:08 Review of Systems ROS Statement: Those systems with pertinent positive or pertinent negative responses have been documented in the HPI. ROS Other: All systems not noted in ROS Statement are negative. Past Medical History Past Medical History: Coronary Artery Disease (CAD), Cancer, COPD, CVA/TIA, Diabetes Mellitus, GERD/Reflux, Hypertension Additional Past Medical History / Comment(s): HX: acute renal problem, neuropathy, CERVICAL CA. Perthes's dx affected short term memory. bilateral glaucoma.recent fall injured pinky finger rt hand. Last Myocardial Infarction Date:: 2001 or 2003 History of Any Multi-Drug Resistant Organisms: None Reported Past Surgical History: Cholecystectomy, Coronary Bypass/CABG, Heart Catheterization With Stent, Orthopedic Surgery Additional Past Surgical History / Comment(s): LEFT HIP ARTHOPLASTY. ORIF RIGHT ANKLE. Cervical cancer surgies. BILATERAL LASER EYE TX FOR GLAUCOMA. Laproscopy. TSS. stent to LAD in 10/2015 Past Anesthesia/Blood Transfusion Reactions: No Reported Reaction Date of Last Stent Placement:: 10/2015 Past Psychological History: Anxiety Smoking Status: Never smoker Past Alcohol Use History: None Reported Past Drug Use History: None Reported - Past Family History Father History Unknown: Yes Family Medical History: COPD, Renal Disease Additional Family Medical History / Comment(s): Father at age 80yrs. of COPD and kidney faiilure. Mother History Unknown: Yes Family Medical History: Diabetes Mellitus Additional Family Medical History / Comment(s): Mother of diabetes at age 55 yrs. General Exam - General Exam Comments Initial Comments: GENERAL: Patient is well-developed and well-nourished. Patient is nontoxic and well- hydrated and is in no acute distress. The scalp over the right congregational area is mildly tender and there is no hematoma or abrasion noted. There is no swelling to the area. ENT: Neck is soft and supple. No significant lymphadenopathy is noted. Oropharynx is clear. Moist mucous membranes. Neck has full range of motion without eliciting any pain. EYES: The sclera were anicteric and conjunctiva were pink and moist. Extraocular movements were intact and pupils were equal round and reactive to light. Eyelids were unremarkable. SKIN: Skin is clear with no lesions or rashes and otherwise unremarkable. NEUROLOGIC: Patient is alert and oriented x3. Cranial nerves II through XII are grossly intact. Motor and sensory are also intact. Normal speech, volume and content. MUSCULOSKELETAL: Normal extremities with adequate strength and full range of motion. No lower extremity swelling or edema. No calf tenderness. PSYCHIATRIC: Normal psychiatric evaluation. Limitations: no limitations Course Vital Signs 12/19/16 20:05 Temperature 98.5 F Pulse Rate 73 Respiratory 18 Rate Blood Pressure 203/95 O2 Sat by Pulse 97 Oximetry Disposition Clinical Impression: Scalp contusion Disposition: HOME SELF-CARE Instructions: Scalp Contusion in Adults (ED) Referrals: Jim Bell MD [Primary Care Provider] - 1-2 days Time of Disposition: 20:30
== END 2016-12-19 20:38 | disposition home or self-care (01) ==
LOC: EC 20:00
DX: S00.03XA Contusion of scalp, initial encounter (principal); I25.10 Atherosclerotic heart disease of native coronary artery without angina pectoris; J44.9 Chronic obstructive pulmonary disease, unspecified; K21.9 Gastro-esophageal reflux disease without esophagitis; I10 Essential (primary) hypertension; E11.40 Type 2 diabetes mellitus with diabetic neuropathy, unspecified; F41.9 Anxiety disorder, unspecified; Z85.41 Personal history of malignant neoplasm of cervix uteri; Z79.1 Long term (current) use of non-steroidal anti-inflammatories (NSAID); Z79.01 Long term (current) use of anticoagulants; Z79.899 Other long term (current) drug therapy; Z88.2 Allergy status to sulfonamides; Z88.6 Allergy status to analgesic agent; Z91.030 Bee allergy status; Z88.8 Allergy status to other drugs, medicaments and biological substances; Z91.048 Other nonmedicinal substance allergy status; W22.8XXA Striking against or struck by other objects, initial encounter
CPT/HCPCS: 99283

== ENCOUNTER 2017-03-05 03:02 | Emergency (ER) | payer OTHER ==
[2017-03-05 03:15] VITALS: BP 163/79; PULSE 64; RESP 18; TEMP 97
[2017-03-05] MEDS ORDERED: PROPARACAINE 0.5% OPHTH DROPS 15 ML BTL ONE (03:34)
--- NOTE | 2017-03-05 03:46 | ED ---
General Adult HPI - General Chief complaint: Eye Problems Stated complaint: eye problems Time Seen by Provider: 03/05/17 03:31 Source: patient, RN notes reviewed Mode of arrival: wheelchair Limitations: no limitations - History of Present Illness Initial comments: 56-year-old female presents with accidental cream in her right eye. Patient got rectal hemorrhoid cream in her right eye. She is describing a burning sensation. This happened approximately 30 minutes prior to arrival. She denies any vision changes. Patient states she was applying her 's rectal hydrocortisone cream, she did not wash her hands, and accidentally rubbed her right eye. Patient has no other complaints. - Related Data Home Medications Medication Instructions Recorded Confirmed Clopidogrel Bisulfate [Plavix] 75 mg PO DAILY 06/11/13 12/19/16 ALPRAZolam [Xanax] 0.25 mg PO TID PRN 09/27/14 12/19/16 Albuterol Inhaler [Ventolin Hfa 2 puff INHALATION RT-Q6H PRN 09/27/14 12/19/16 Inhaler] Pantoprazole Sodium [Protonix] 40 mg PO BID 04/05/15 12/19/16 Albuterol Nebulized [Ventolin 2.5 mg INHALATION RT-Q6H PRN 05/07/15 12/19/16 Nebulized] Metoprolol Tartrate [Lopressor] 25 mg PO BID 05/07/15 12/19/16 Insulin Glargine [Lantus] 50 unit SQ HS 08/26/15 12/19/16 Topiramate [Topamax] 25 mg PO HS 10/09/15 12/19/16 Atorvastatin [Lipitor] 40 mg PO DAILY 10/21/15 12/19/16 Losartan Potassium [Cozaar] 25 mg PO DAILY 02/07/16 12/19/16 Topiramate [Topamax] 75 mg PO DAILY 03/04/16 12/19/16 Cyanocobalamin [Vitamin B-12] 500 mcg PO DAILY 09/16/16 12/19/16 Potassium 99 mg PO DAILY 09/16/16 12/19/16 amLODIPine BESYLATE [Norvasc] 5 mg PO DAILY 09/16/16 12/19/16 Ranolazine [Ranexa] 500 mg PO BID 10/27/16 12/19/16 Previous Rx's Medication Instructions Recorded Aspirin 325 mg PO DAILY tab 10/11/15 Nitroglycerin Sl Tabs [Nitrostat] 0.4 mg SUBLINGUAL Q5M PRN #25 tab 10/11/15 Magnesium Oxide 400 mg PO DAILY #20 tablet 05/10/16 Erythromycin Ophth Oint [Romycin 1 applic RIGHT EYE QID #3.5 gm 03/05/17 Ophth Oint] Allergies Allergy/AdvReac Type Severity Reaction Status Date / Time adhesive tape Allergy Rash/Hives Verified 03/05/17 03:16 indomethacin Allergy Unknown Verified 03/05/17 03:16 insulin glargine Allergy Rash/Hives Verified 03/05/17 03:16 [From Basaglar KwikPen] ipratropium bromide Allergy Unknown Verified 03/05/17 03:16 [From Atrovent] ketorolac tromethamine Allergy Anaphylaxis Verified 03/05/17 03:16 [From Toradol] naproxen [From Naprosyn] Allergy Itching Verified 03/05/17 03:16 pregabalin [From Lyrica] Allergy Unknown Verified 03/05/17 03:16 Sulfa (Sulfonamide Allergy Anaphylaxis Verified 03/05/17 03:16 Antibiotics) sulfamethoxazole Allergy Unknown Verified 03/05/17 03:16 [From Bactrim] tramadol Allergy Unknown Verified 03/05/17 03:16 trimethoprim [From Bactrim] Allergy Unknown Verified 03/05/17 03:16 venom-honey bee Allergy Anaphylaxis Verified 03/05/17 03:16 [bee venom (honey bee)] budesonide [From Symbicort] AdvReac Vomiting Verified 03/05/17 03:16 formoterol fumarate AdvReac Vomiting Verified 03/05/17 03:16 [From Symbicort] sucralose AdvReac Rapid Verified 03/05/17 03:16 [From Splenda (sucralose)] Heart Rate tramadol HCl [From Ultram] AdvReac SEIZURES Verified 03/05/17 03:16 Review of Systems ROS Statement: Those systems with pertinent positive or pertinent negative responses have been documented in the HPI. ROS Other: All systems not noted in ROS Statement are negative. Past Medical History Past Medical History: Coronary Artery Disease (CAD), Cancer, COPD, CVA/TIA, Diabetes Mellitus, GERD/Reflux, Hypertension Additional Past Medical History / Comment(s): HX: acute renal problem, neuropathy, CERVICAL CA. Perthes's dx affected short term memory. bilateral glaucoma.recent fall injured pinky finger rt hand. Last Myocardial Infarction Date:: 2001 or 2003 History of Any Multi-Drug Resistant Organisms: None Reported Past Surgical History: Cholecystectomy, Coronary Bypass/CABG, Heart Catheterization With Stent, Orthopedic Surgery Additional Past Surgical History / Comment(s): LEFT HIP ARTHOPLASTY. ORIF RIGHT ANKLE. Cervical cancer surgies. BILATERAL LASER EYE TX FOR GLAUCOMA. Laproscopy. TSS. stent to LAD in 10/2015 Past Anesthesia/Blood Transfusion Reactions: No Reported Reaction Date of Last Stent Placement:: 10/2015 Past Psychological History: Anxiety Smoking Status: Never smoker Past Alcohol Use History: None Reported Past Drug Use History: None Reported - Past Family History Father History Unknown: Yes Family Medical History: COPD, Renal Disease Additional Family Medical History / Comment(s): Father at age 80yrs. of COPD and kidney faiilure. Mother History Unknown: Yes Family Medical History: Diabetes Mellitus Additional Family Medical History / Comment(s): Mother of diabetes at age 55 yrs. General Exam Limitations: no limitations General appearance: alert, in no apparent distress Head exam: Present: atraumatic, normocephalic Eye exam: Present: normal appearance, PERRL, EOMI, other (No corneal uptake on fluorescein examination.). Absent: scleral icterus, conjunctival injection, periorbital swelling, periorbital tenderness ENT exam: Present: normal exam. Absent: mucous membranes dry Respiratory exam: Present: normal lung sounds bilaterally, respiratory distress Cardiovascular Exam: Absent: regular rate, normal rhythm Course Vital Signs 03/05/17 03:11 Temperature 97.0 F L Pulse Rate 64 Respiratory 18 Rate Blood Pressure 163/79 O2 Sat by Pulse 100 Oximetry Medical Decision Making - Medical Decision Making 56-year-old female with rectal hemorrhoid cream to the right eye. This was steroid base rectal cream. There is no corneal uptake on examination. No scleral injection. Patient's eyes irrigated with normal saline. She is prescribed erythromycin ointment to prevent secondary infection. 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 Disposition Clinical Impression: Chemical conjunctivitis of right eye Disposition: HOME SELF-CARE Instructions: Eye Lubricant (Into the eye), Chemical Eye [place] (ED) Prescriptions: Erythromycin Ophth Oint [Romycin Ophth Oint] 1 applic RIGHT EYE QID #3.5 gm Referrals: Jim Bell MD [Primary Care Provider] - 1-2 days Time of Disposition: 03:44
[2017-03-05] MEDS ORDERED: PROPARACAINE 0.5% OPHTH DROPS 15 ML BTL RIGHT EYE STA (03:57)
== END 2017-03-05 04:02 | disposition home or self-care (01) ==
LOC: EC 03:02
DX: H10.211 Acute toxic conjunctivitis, right eye (principal); T49.0X5A Adverse effect of local antifungal, anti-infective and anti-inflammatory drugs, initial encounter; I25.10 Atherosclerotic heart disease of native coronary artery without angina pectoris; E11.9 Type 2 diabetes mellitus without complications; K21.9 Gastro-esophageal reflux disease without esophagitis; I10 Essential (primary) hypertension; Z85.41 Personal history of malignant neoplasm of cervix uteri; Z86.73 Personal history of transient ischemic attack (TIA), and cerebral infarction without residual deficits; Z95.1 Presence of aortocoronary bypass graft; Z95.5 Presence of coronary angioplasty implant and graft; Z79.02 Long term (current) use of antithrombotics/antiplatelets; Z79.4 Long term (current) use of insulin; Z79.899 Other long term (current) drug therapy; Z91.048 Other nonmedicinal substance allergy status; Z88.6 Allergy status to analgesic agent; Z88.8 Allergy status to other drugs, medicaments and biological substances; Z88.2 Allergy status to sulfonamides; Z91.030 Bee allergy status
CPT/HCPCS: 99283

== ENCOUNTER → 2017-03-10 | Outpatient (CLI) | payer OTHER ==
[2017-03-10 11:29] LABS: HCT 38.2 % (34.0-46.0); HGB 12.9 gm/dL (11.4-16.0); MCH 31.1 pg (25.0-35.0); MCHC 33.8 g/dL (31.0-37.0); MCV 91.8 fL (80.0-100.0); Mean Platelet Volume 7.5; Platelet Count 204 k/uL (150-450); RBC 4.16 m/uL (3.80-5.40); RDW 13.1 % (11.5-15.5); WBC 7.6 k/uL (3.8-10.6)
[2017-03-10 11:34] LABS: Anion Gap 13 mmol/L; Blood Urea Nitrogen 17 mg/dL (7-17); Carbon Dioxide 23 mmol/L (22-30); Chloride 110 mmol/L (98-107); Potassium 3.9 mmol/L (3.5-5.1); Sodium 146 mmol/L (137-145)
== END | disposition home or self-care (01) ==
LOC: LABPAT 10:43
PROVIDERS: ATTEND Internal Medicine Cardiovascular Disease
DX: Z01.812 Encounter for preprocedural laboratory examination (principal); R07.9 Chest pain, unspecified
CPT/HCPCS: 36415; 80051; 82565; 84520; 85027

== ENCOUNTER 2017-03-17 09:12 | Day surgery (SDC) | payer OTHER ==
[~2017-03-17 09:12] MED LIST: ALPRAZolam 0.25 MG TAB PO PRN; ALPRAZolam 0.5 MG TAB PO PRN; ASPIRIN 325 MG TAB PO STA; ATORVASTATIN 80 MG TAB PO STA; NITROGLYCERIN SL TABS 0.4 MG TAB SUBLINGUAL PRN; SODIUM CHLORIDE 0.9% 1,000 ML in EMPTY BAG 1 BAG IV ONE
[2017-03-17 09:54] LABS: Glucose,Whole Blood 177 mg/dL (75-99)
[2017-03-17] MEDS ORDERED: diphenhydrAMINE 50 MG/ML 1 ML VIAL ONE (11:18)
[2017-03-17] MEDS ORDERED: fentaNYL (PF) 50 MCG/ML 2 ML AMP ONE (11:18)
[2017-03-17] MEDS ORDERED: MIDAZOLAM 2 MG/2 ML VIAL ONE (11:18)
[2017-03-17] MEDS ORDERED: diphenhydrAMINE 50 MG/ML 1 ML VIAL IVP ONE (11:28)
[2017-03-17] MEDS: MIDAZOLAM 2 MG/2 ML VIAL IVP ONE ×2 (11:28→12:29)
[2017-03-17] MEDS ORDERED: fentaNYL (PF) 50 MCG/ML 2 ML AMP IV ONE (11:28)
[2017-03-17] MEDS ORDERED: LIDOCAINE 2% INJ 20 MG/ML SQ ONE (11:33)
[2017-03-17] MEDS ORDERED: NITROGLYCERIN OINT 1 INCH/GM PACKET TOPICAL ONE (11:43)
[2017-03-17] MEDS ORDERED: ENALAPRILAT 1.25 MG/ML 1 ML VIAL ONE (11:44)
[2017-03-17] MEDS ORDERED: ENALAPRILAT 1.25 MG/ML 1 ML VIAL IV ONE (11:46)
--- NOTE | 2017-03-17 12:09 | P.PCN ---
Date of Procedure: 03/17/17 Preoperative Diagnosis: Crescendo angina and positive stress test Postoperative Diagnosis: The same Procedure(s) Performed: Left heart catheterization without left ventriculography Description of Procedure: HISTORY: This is a 56-year-old female with history of hypertension, diabetes and previous coronary artery disease with history of CABG and also stent placement who has been experiencing recurrent chest pains. A stress test showed evidence of of ischemia in the lateral wall and anterolateral wall. She was also considering to have back surgery. Patient is advised to have a cardiac catheterization for definitive diagnosis CONSENT:I have discussed the risks, benefits and alternative therapies for the above-mentioned procedure and for both sedation/analgesia as well as necessary blood product administration, if indicated, as they pertain to this patient. The patient has indicated understanding and acceptance of the risks and procedures discussed. [] PROCEDURE: Patient was brought to the lab in a fasting state. Patient was given some IV sedation. The right groin is infiltrated with lidocaine and right femoral artery was entered using Seldinger technique. A 6-Syriac catheter was left in place and selective coronary arteriography was performed. Patient tolerated the procedure well. Femoral angiogram was performed . No immediate complications were noted . Patient is going to have stent placement of the distal circumflex by Dr. Hyde and Conscious Sedation: Versed 1mg Fentanyl 50 g Duration 19minutes HEMODYNAMICS: The aortic pressure is about 170/95. Left ventricular end- diastolic pressures were not measured SELECTIVE CORONARY ARTERIOGRAPHY: LEFT MAIN: Normal length and patent THE LEFT ANTERIOR DESCENDING CORONARY ARTERY:. The stent in the proximal LAD seemed to be patent. The LAD is totally occluded in the midportion. The BARAJAS graft to the distal LAD is patent THE LEFT CIRCUMFLEX AND IS CORONARY ARTERY:. This is a dominant vessel giving rise to good-sized OM branch. The stent in the OM branch is patent. The distal circumflex has about 70-80% stenosis which courses is the PDA THE RIGHT CORONARY ARTERY: Small and totally occluded in the proximal portion LEFT VENTRICULOGRAPHY:. Not performed FINAL IMPRESSION: Significant disease involving the distal circumflex. Patent stents in the OM branch and also proximal LAD. The BARAJAS graft to the LAD is patent. The right coronary artery is totally occluded PLAN: Stent placement of the distal circumflex to be attempted by Dr. Hyde PROGNOSIS: Fair
[2017-03-17] MEDS ORDERED: BIVALIRUDIN BOLUS 250 MG/50 ML IV ONE (12:28)
[2017-03-17] MEDS ORDERED: BIVALIRUDIN 250 MG in SODIUM CHLORIDE 0.9% 35 ML IV ONE (12:30)
[2017-03-17] MEDS ORDERED: IOHEXOL 350 MG/ML 125ML BOTTLE INJ ONE (12:50)
[2017-03-17] MEDS ORDERED: ZOLPIDEM 5 MG TAB PO PRN (12:59)
[2017-03-17] MEDS ORDERED: MAG HYDROX/AL HYDROX/SIMETH 30 ML CUP PO PRN (12:59)
[2017-03-17] MEDS ORDERED: RX INFO: IV CONTRAST WAS GIVEN 1 EACH MISC MISCELLANE PRN (12:59)
[2017-03-17] MEDS ORDERED: ATROPINE SULFATE 0.1 MG/ML 10ML SYRINGE IV PRN (12:59)
[2017-03-17] MEDS ORDERED: NITROGLYCERIN SL TABS 0.4 MG TAB SUBLINGUAL PRN (12:59)
[2017-03-17] MEDS ORDERED: ALBUTEROL NEBULIZED 2.5 MG/3 ML INHALATION PRN (13:00)
[2017-03-17] MEDS ORDERED: SODIUM CHLORIDE 0.9% 1,000 ML IV SCH (13:00)
--- NOTE | 2017-03-17 13:43 | PTCA ---
PERCUTANEOUSTRANS CORORONARY ANGIOGRAPHY Mrs. Souza is a 56-year-old female with known history of coronary artery disease, who presented with symptoms of chest discomfort, underwent cardiac catheterization by Dr. Calero and was found to have significant disease involving the left PDA. In view of that, recommendation was made regarding angioplasty and stenting the procedure as well as the risks and complications were discussed with the patient who is in full understanding and agreement. PROCEDURE: A 6-Nauruan FR4 guiding catheter introduced in the system. After cannulating the left main, a 0.014 balanced medium weight J-wire was advanced across the lesion and positioned distally. Then a 2.5 x 17 mm EluNIR stent was deployed postdilated at 14 atmospheres. After the last inflation, after appropriate wait, the balloon and the guidewire were withdrawn back in the guiding catheter. Images were obtained, repeated. Those images reveal stable successful stenting. At that point, the guiding catheter, the balloon and the guidewire were removed. The sheath was removed. Hemostasis was obtained with deployment of an Angio-Seal. There was no immediate complication. Patient was returned to her room in stable condition. Of note, the patient had no chest discomfort or EKG changes with the inflations. She received Angiomax per protocol and was continued on Plavix. RESULTS: Successful stenting of the left PDA with reduction in stenosis from 70% to 0%. RECOMMENDATION: Patient will be continued on aspirin, Plavix, beta blockers, VIET inhibitor, statin. The importance of dual antiplatelet treatment was discussed with the patient and her family and in full understanding and agreement. Duration of the procedure is 20 minutes. MMODL / IJN: [id number] /
[2017-03-17 15:12] LABS: Glucose,Whole Blood 194 mg/dL (75-99)
[2017-03-17 16:58] LABS: Glucose,Whole Blood 183 mg/dL (75-99)
[2017-03-17 19:46] LABS: Glucose,Whole Blood 255 mg/dL (75-99)
[2017-03-17] MEDS: INSULIN DETEMIR 100 UNIT/ML 10 ML VIAL SQ SCH (20:26)
[2017-03-17] MEDS: METOPROLOL TARTRATE 25 MG TAB PO SCH (20:27)
[2017-03-17] MEDS: TOPIRAMATE 100 MG TAB PO SCH ×2 (20:27→20:29)
[2017-03-17] MEDS: ALPRAZolam 0.25 MG TAB PO PRN (22:57)
[2017-03-18 05:41] LABS: Glucose,Whole Blood 146 mg/dL (75-99)
[2017-03-18 06:40] LABS: Anion Gap 7 mmol/L; Blood Urea Nitrogen 18 mg/dL (7-17); Calcium 9.3 mg/dL (8.4-10.2); Carbon Dioxide 26 mmol/L (22-30); Chloride 110 mmol/L (98-107); Glucose 127 mg/dL (74-99); Potassium 4.2 mmol/L (3.5-5.1); Sodium 143 mmol/L (137-145)
[2017-03-18] MEDS: METOPROLOL TARTRATE 25 MG TAB PO SCH (08:40)
[2017-03-18] MEDS: TOPIRAMATE 100 MG TAB PO SCH (08:41)
[2017-03-18] MEDS ORDERED: amLODIPine 5 MG TAB PO SCH (09:00)
[2017-03-18] MEDS ORDERED: FAMOTIDINE 20 MG TAB PO SCH (09:00)
[2017-03-18] MEDS ORDERED: NON-FORMULARY DRUG (Potassium [Potassium] 99 MG) PO SCH (09:00)
[2017-03-18] MEDS ORDERED: ATORVASTATIN 40 MG TAB PO SCH (09:00)
[2017-03-18] MEDS ORDERED: ASPIRIN 81 MG PO SCH (09:00)
[2017-03-18] MEDS ORDERED: LOSARTAN 25 MG TAB PO SCH (09:00)
[2017-03-18] MEDS ORDERED: CLOPIDOGREL 75 MG TAB PO SCH (09:00)
[2017-03-18] MEDS ORDERED: RANOLAZINE 500 MG TAB.ER.12H PO SCH (09:00)
[2017-03-18] MEDS: INSULIN DETEMIR 100 UNIT/ML 10 ML VIAL SQ SCH (09:04)
[2017-03-18 09:16] VITALS: RESP 18
[2017-03-18] MEDS: ALPRAZolam 0.25 MG TAB PO PRN (11:47)
[2017-03-18 11:55] LABS: Glucose,Whole Blood 216 mg/dL (75-99)
[2017-03-18] MEDS ORDERED: MAGNESIUM OXIDE 400 MG TAB PO SCH (12:00)
[2017-03-18] MEDS ORDERED: CYANOCOBALAMIN 500 MCG TAB PO SCH (12:00)
[2017-03-18 12:03] VITALS: BP 183/89; PULSE 52; TEMP 98.5
--- NOTE | 2017-03-18 13:21 | P.PN ---
Subjective Progress Note Date: 03/18/17 Principal diagnosis: PDA Stent This is a 56-year-old female with history of hypertension, diabetes, coronary artery disease with prior bypass surgery and stent placements, she was brought to the hospital by Dr. Calero to undergo a cardiac catheterization because of a positive stress test as an outpatient. Subsequently patient underwent angioplasty with stenting of the PDA by Dr. Hyde. EKG this morning showed normal sinus rhythm with no changes from post-PCI. Hemodynamically stable. Patient denies any chest discomfort, no difficulty in breathing. She' s been up ambulating without any difficulty. Objective - Vital Signs Vital signs: Vital Signs Temp 98.5 F 03/18/17 12:00 Pulse 52 L 03/18/17 12:00 Resp 18 03/18/17 12:00 BP 183/89 03/18/17 12:00 Pulse Ox 96 03/18/17 12:00 Intake & Output 03/17/17 03/18/17 03/18/17 18:59 06:59 18:59 Intake Total 906 810 600 Output Total 300 Balance 606 810 600 Weight 96.615 kg 95.6 kg Intake: IV 326 810 0.9 10 Sodium Chloride 0.9% 1, 100 800 000 ml @ 100 mls/hr IV . Q10H [facility] Rx#:[id number] Intake, IV Titration 400 Amount Sodium Chloride 0.9% 1, 400 000 ml @ 100 mls/hr IV . Q10H [facility] Rx#:[id number] Oral 180 600 Output: Urine 300 Other: Voiding Method Bedpan Toilet # Voids 1 - Exam PHYSICAL EXAMINATION: HEENT: Head is atraumatic, normocephalic. Pupils equal, round. Neck is supple. There is no elevated jugular venous pressure. HEART EXAMINATION: Heart S1, S2 normal. No murmur or gallop heard. CHEST EXAMINATION: Lungs are clear to auscultation and precussion. No chest wall tenderness is noted on palpation or with deep breathing. ABDOMEN: Soft, nontender. Bowel sounds are heard. No organomegaly noted. Right groin soft, no evidence of any hematoma. EXTREMITIES: 2+ peripheral pulses with no evidence of peripheral edema and no calf tenderness noted. NEUROLOGIC patient is awake, alert and oriented -3. . - Labs CBC & Chem 7: 03/18/17 05:47 Labs: Abnormal Lab Results - Last 24 Hours (Table) 03/17/17 03/17/17 03/17/17 Range/Units 14:56 16:46 19:26 Chloride (98-107) mmol/L BUN (7-17) mg/dL Glucose (74-99) mg/dL POC Glucose (mg/dL) 194 H 183 H 255 H (75-99) mg/dL 03/18/17 03/18/17 03/18/17 Range/Units 05:38 05:47 11:53 Chloride 110 H (98-107) mmol/L BUN 18 H (7-17) mg/dL Glucose 127 H (74-99) mg/dL POC Glucose (mg/dL) 146 H 216 H (75-99) mg/dL Assessment and Plan Plan: Assessment and plan #1 status post angioplasty with stenting of the PDA #2 known history of coronary artery disease with prior bypass surgery and stenting #3 hypertension #4 diabetes #5 hyperlipidemia #6 anxiety Plan Patient may be able to be discharged home today from cardiology's perspective, we will make her follow-up appointment with Dr. Calero in the office one week post discharge. Patient will be discharged home on Norvasc 5 mg daily, Ecotrin 81 mg daily, Lipitor 40 mg daily, Plavix 75 mg daily, losartan 25 mg daily, metoprolol 25 mg one tablet by mouth twice a day, Ranexa 500 mg daily and sublingual nitroglycerin as needed for chest pain. DNP note has been reviewed, I agree with a documented findings and plan of care. Patient was seen and examined.
[2017-03-18 13:39] VITALS: BMI 37.3
== END 2017-03-18 14:38 | disposition home or self-care (01) ==
LOC: CATHCVL 09:12 → 6SEL 12:50 → CATHCVL 03-18 14:38
PROVIDERS: ATTEND Internal Medicine Cardiovascular Disease
DX: I25.110 Atherosclerotic heart disease of native coronary artery with unstable angina pectoris (principal); I25.82 Chronic total occlusion of coronary artery; R00.1 Bradycardia, unspecified; R94.39 Abnormal result of other cardiovascular function study; I11.0 Hypertensive heart disease with heart failure; I50.32 Chronic diastolic (congestive) heart failure; E66.9 Obesity, unspecified; Z68.38 Body mass index [BMI] 38.0-38.9, adult; M10.9 Gout, unspecified; I73.9 Peripheral vascular disease, unspecified; N28.9 Disorder of kidney and ureter, unspecified; E11.9 Type 2 diabetes mellitus without complications; I35.1 Nonrheumatic aortic (valve) insufficiency; Z95.1 Presence of aortocoronary bypass graft; Z95.5 Presence of coronary angioplasty implant and graft; E78.00 Pure hypercholesterolemia, unspecified; F41.9 Anxiety disorder, unspecified; I25.2 Old myocardial infarction; Z79.02 Long term (current) use of antithrombotics/antiplatelets; Z79.82 Long term (current) use of aspirin; Z79.899 Other long term (current) drug therapy; Z79.4 Long term (current) use of insulin; Z88.6 Allergy status to analgesic agent; Z88.1 Allergy status to other antibiotic agents; Z88.5 Allergy status to narcotic agent; Z88.2 Allergy status to sulfonamides; Z87.891 Personal history of nicotine dependence
CPT/HCPCS: 93455; 80048; C9600; C1769 ×2; C1760; C1887; C1894; C1874; J2001; J2250; J1200; J3010; J0583; Q9967

== ENCOUNTER 2017-04-26 01:35 | Emergency (ER) | payer OTHER ==
[2017-04-26 01:41] VITALS: BP 196/91; PULSE 79; RESP 20; TEMP 97.4
[2017-04-26] MEDS ORDERED: ACETAMINOPHEN TAB 500 MG TAB PO STA (02:03)
--- NOTE | 2017-04-26 02:03 | ED ---
General Adult HPI - General Chief complaint: Extremity Problem,Nontraumatic Stated complaint: arm pain Time Seen by Provider: 04/26/17 01:44 Source: patient, RN notes reviewed Mode of arrival: ambulatory Limitations: no limitations - History of Present Illness Initial comments: 56-year-old female presents for right shoulder pain. Patient had an accident in June. She's had a MRI in the right shoulder she is currently trying to get an orthopedics. She states she has Motrin and Tylenol. Home. She is hoping we can do a localized. Injection into the joint. She states that she is trying to get follow-up with orthopedic. She states that he just continues to have this pain and discomfort to the area. She states that movement seems to make it worse. She denies any new trauma or injury. She had an MRI of the shoulder over a month ago. They were concerned due to the continued complaint of pain so they thought that they should be seen and they were hoping there something we can do to help them. Patient denies any other symptoms at this time. Patient states is exactly like what she is always had. Patient denies any recent fever, chills, shortness of breath, chest pain, back pain, abdominal pain, nausea vomiting, numbness or tingling, dysuria or hematuria, constipation or diarrhea, headaches or visual changes, or any other current symptoms. - Related Data Home Medications Medication Instructions Recorded Confirmed Clopidogrel Bisulfate [Plavix] 75 mg PO DAILY 06/11/13 03/17/17 ALPRAZolam [Xanax] 0.25 mg PO TID PRN 09/27/14 03/17/17 Albuterol Nebulized [Ventolin 2.5 mg INHALATION Q6HR PRN 05/07/15 03/17/17 Nebulized] Metoprolol Tartrate [Lopressor] 25 mg PO BID 05/07/15 03/17/17 Insulin Glargine [Lantus] 50 unit SQ BID 08/26/15 03/17/17 Atorvastatin [Lipitor] 40 mg PO DAILY 10/21/15 03/17/17 Losartan Potassium [Cozaar] 25 mg PO DAILY 02/07/16 03/17/17 Cyanocobalamin [Vitamin B-12] 500 mcg PO DAILY 09/16/16 03/17/17 Potassium 99 mg PO DAILY 09/16/16 03/17/17 amLODIPine BESYLATE [Norvasc] 5 mg PO DAILY 09/16/16 03/17/17 Ranolazine [Ranexa] 500 mg PO DAILY 10/27/16 03/17/17 Insulin Glulisine [Apidra] 0 unit SQ ACHS PRN 03/08/17 03/17/17 Ranitidine HCl 300 mg PO DAILY 03/08/17 03/17/17 Topiramate [Topamax] 100 mg PO BID 03/08/17 03/17/17 Previous Rx's Medication Instructions Recorded Nitroglycerin Sl Tabs [Nitrostat] 0.4 mg SUBLINGUAL Q5M PRN #25 tab 10/11/15 Magnesium Oxide 400 mg PO DAILY #20 tablet 05/10/16 Allergies Allergy/AdvReac Type Severity Reaction Status Date / Time adhesive tape Allergy Rash/Hives Verified 04/26/17 01:41 baclofen Allergy loss of Verified 04/26/17 01:41 balance gabapentin Allergy loss of Verified 04/26/17 01:41 balance indomethacin Allergy Unknown Verified 04/26/17 01:41 insulin glargine Allergy Rash/Hives Verified 04/26/17 01:41 [From Basaglar KwikPen] ipratropium bromide Allergy Unknown Verified 04/26/17 01:41 [From Atrovent] ketorolac tromethamine Allergy Anaphylaxis Verified 04/26/17 01:41 [From Toradol] naproxen [From Naprosyn] Allergy Itching Verified 04/26/17 01:41 pantoprazole [From Protonix] Allergy memory loss Verified 04/26/17 01:41 pregabalin [From Lyrica] Allergy Unknown Verified 04/26/17 01:41 Sulfa (Sulfonamide Allergy Anaphylaxis Verified 04/26/17 01:41 Antibiotics) sulfamethoxazole Allergy Anaphylaxis Verified 04/26/17 01:41 [From Bactrim] tramadol Allergy Unknown Verified 04/26/17 01:41 trimethoprim [From Bactrim] Allergy Unknown Verified 04/26/17 01:41 venom-honey bee Allergy Anaphylaxis Verified 04/26/17 01:41 [bee venom (honey bee)] budesonide [From Symbicort] AdvReac Vomiting Verified 04/26/17 01:41 formoterol fumarate AdvReac Vomiting Verified 04/26/17 01:41 [From Symbicort] sucralose AdvReac Rapid Verified 04/26/17 01:41 [From Splenda (sucralose)] Heart Rate tramadol HCl [From Ultram] AdvReac SEIZURES Verified 04/26/17 01:41 Review of Systems ROS Statement: Those systems with pertinent positive or pertinent negative responses have been documented in the HPI. ROS Other: All systems not noted in ROS Statement are negative. Past Medical History Past Medical History: Coronary Artery Disease (CAD), Cancer, COPD, CVA/TIA, Diabetes Mellitus, GERD/Reflux, Hypertension Additional Past Medical History / Comment(s): HX: acute renal problem, neuropathy, CERVICAL CA. Perthes's dx affected short term memory. bilateral glaucoma. Last Myocardial Infarction Date:: 2001 or 2003 History of Any Multi-Drug Resistant Organisms: None Reported Past Surgical History: Cholecystectomy, Coronary Bypass/CABG, Heart Catheterization With Stent, Orthopedic Surgery Additional Past Surgical History / Comment(s): LEFT HIP ARTHOPLASTY. ORIF RIGHT ANKLE. Cervical cancer surgies. BILATERAL LASER EYE TX FOR GLAUCOMA. Laproscopy. TSS. stent to LAD in 10/2015-STENT TO DISTALCIRC 03/17/2017 Past Anesthesia/Blood Transfusion Reactions: No Reported Reaction Date of Last Stent Placement:: 03/2017 Past Psychological History: Anxiety Smoking Status: Never smoker Past Alcohol Use History: None Reported Past Drug Use History: None Reported - Past Family History Brother(s) Family Medical History: Deep Vein Thrombosis (DVT) Sister(s) Family Medical History: Cancer Father History Unknown: Yes Family Medical History: Deep Vein Thrombosis (DVT) Additional Family Medical History / Comment(s): Father at age 80yrs. of COPD and kidney faiilure. Mother History Unknown: Yes Family Medical History: Diabetes Mellitus Additional Family Medical History / Comment(s): Mother of diabetes at age 55 yrs. General Exam Limitations: no limitations General appearance: alert, in no apparent distress ENT exam: Present: normal exam, mucous membranes moist Neck exam: Present: normal inspection. Absent: tenderness, meningismus, lymphadenopathy Respiratory exam: Absent: respiratory distress Cardiovascular Exam: Present: regular rate Extremities exam: Present: normal inspection, full ROM, normal capillary refill. Absent: tenderness, pedal edema, joint swelling, calf tenderness Back exam: Present: normal inspection Neurological exam: Present: alert, oriented X3 Course Vital Signs 04/26/17 01:37 Temperature 97.4 F L Pulse Rate 79 Respiratory 20 Rate Blood Pressure 196/91 O2 Sat by Pulse 99 Oximetry Medical Decision Making - Medical Decision Making 56-year-old female presents for right shoulder pain. This time we discussed follow-up with or so. We discussed using the Motrin we discussed adding Tylenol. Patient does not want a narcotic she does not want a Toradol injection she states she is ALLERGIC. At this time we discussed follow-up with or so. We discussed ice to the area or heat. We discussed return parameters all questions. Patient stated that she understood and she is agreement this plan. She will be discharged. Disposition Clinical Impression: Sprain of right shoulder Disposition: HOME SELF-CARE Condition: Stable Instructions: Rotator Cuff Injury (ED), Rotator Cuff Tendinitis (ED) Additional Instructions: Please use medication as discussed. Please follow up with family doctor if symptoms have not improved over the next two days. Please return to the emergency room if your symptoms increase or worsen or for any other concerns. Referrals: Jim Bell MD [Primary Care Provider] - 1-2 days Evan Tran DO [Doctor of Osteopathic Medicine] - 1-2 days Time of Disposition: 02:03
== END 2017-04-26 02:22 | disposition home or self-care (01) ==
LOC: EC 01:35
DX: S43.401A Unspecified sprain of right shoulder joint, initial encounter (principal); I10 Essential (primary) hypertension; I25.10 Atherosclerotic heart disease of native coronary artery without angina pectoris; E11.40 Type 2 diabetes mellitus with diabetic neuropathy, unspecified; K21.9 Gastro-esophageal reflux disease without esophagitis; Z79.02 Long term (current) use of antithrombotics/antiplatelets; Z79.4 Long term (current) use of insulin; Z79.899 Other long term (current) drug therapy; Z88.1 Allergy status to other antibiotic agents; Z88.2 Allergy status to sulfonamides; Z88.5 Allergy status to narcotic agent; Z88.6 Allergy status to analgesic agent; Z88.8 Allergy status to other drugs, medicaments and biological substances; Z91.030 Bee allergy status; Z91.048 Other nonmedicinal substance allergy status; Z86.73 Personal history of transient ischemic attack (TIA), and cerebral infarction without residual deficits; Z85.41 Personal history of malignant neoplasm of cervix uteri; Z98.890 Other specified postprocedural states
CPT/HCPCS: 99283

== ENCOUNTER 2017-09-17 16:04 | Emergency (ER) | payer OTHER ==
[2017-09-17 16:09] VITALS: RESP 18
[2017-09-17] MEDS ORDERED: predniSONE 50 MG TAB PO STA (16:53)
[2017-09-17] MEDS ORDERED: AZITHROMYCIN 500 MG TAB PO STA (16:53)
[2017-09-17] MEDS ORDERED: IPRATROPIUM-ALBUTEROL 3 ML NEB INHALATION STA (16:53)
--- NOTE | 2017-09-17 16:55 | XR ---
EXAMINATION TYPE: XR chest 2V DATE OF EXAM: 09/17/2017 COMPARISON: 05/10/2016 HISTORY: Facial numbness TECHNIQUE: Frontal and lateral views of the chest are obtained. FINDINGS: Heart is normal. Lungs are clear. Costophrenic angles are clear. Bony thorax is intact. Th ere are sternal wires. IMPRESSION: No active cardiopulmonary disease. Normal heart. No change.
--- NOTE | 2017-09-17 16:58 | ED ---
URI HPI - General Chief Complaint: Upper Respiratory Infection Stated Complaint: Cough Time Seen by Provider: 09/17/17 16:43 Source: patient, RN notes reviewed, old records reviewed Mode of arrival: ambulatory Limitations: no limitations - History of Present Illness Initial Comments: 56-year-old female comes in with cough, and losing her voice over the past 24 hours. Patient states that she's had a productive cough. She is a nonsmoker. Patient reports that her does smoke but he does still out of the house. She was recently in her sisters where she will be has the air conditioning on at all times as well as has multiple caps. Patient reports that after she was at her sister's that she started to have the symptoms. Patient states that she has had no fevers or chills. She is diabetic. Patient reports she's also had a history of chronic bronchitis and has had a use nebulizer treatments at home.Patient denies any recent fever, chills, shortness of breath, chest pain, back pain, abdominal pain, nausea vomiting, numbness or tingling, dysuria or hematuria, constipation or diarrhea, headaches or visual changes, or any other current symptoms - Related Data Home Medications Medication Instructions Recorded Confirmed Clopidogrel Bisulfate [Plavix] 75 mg PO DAILY 06/11/13 03/17/17 ALPRAZolam [Xanax] 0.25 mg PO TID PRN 09/27/14 03/17/17 Albuterol Nebulized [Ventolin 2.5 mg INHALATION Q6HR PRN 05/07/15 03/17/17 Nebulized] Metoprolol Tartrate [Lopressor] 25 mg PO BID 05/07/15 03/17/17 Insulin Glargine [Lantus] 50 unit SQ BID 08/26/15 03/17/17 Atorvastatin [Lipitor] 40 mg PO DAILY 10/21/15 03/17/17 Losartan Potassium [Cozaar] 25 mg PO DAILY 02/07/16 03/17/17 Cyanocobalamin [Vitamin B-12] 500 mcg PO DAILY 09/16/16 03/17/17 Potassium 99 mg PO DAILY 09/16/16 03/17/17 amLODIPine BESYLATE [Norvasc] 5 mg PO DAILY 09/16/16 03/17/17 Ranolazine [Ranexa] 500 mg PO DAILY 10/27/16 03/17/17 Insulin Glulisine [Apidra] 0 unit SQ ACHS PRN 03/08/17 03/17/17 Ranitidine HCl 300 mg PO DAILY 03/08/17 03/17/17 Topiramate [Topamax] 100 mg PO BID 03/08/17 03/17/17 Previous Rx's Medication Instructions Recorded Nitroglycerin Sl Tabs [Nitrostat] 0.4 mg SUBLINGUAL Q5M PRN #25 tab 10/11/15 Magnesium Oxide 400 mg PO DAILY #20 tablet 05/10/16 Albuterol Inhaler [Ventolin Hfa 1 - 2 puff INHALATION RT-Q6H PRN 09/17/17 Inhaler] #1 inhaler Azithromycin [Zithromax Z-pack] 250 mg PO DIRECTED #6 tab 09/17/17 Ipratropium-Albuterol Nebulize 3 ml INHALATION TID #30 neb 09/17/17 [Duoneb 0.5 mg-3 mg/3 ml Soln] predniSONE 10 mg PO DAILY #15 tab 09/17/17 Allergies Allergy/AdvReac Type Severity Reaction Status Date / Time adhesive tape Allergy Rash/Hives Verified 09/17/17 16:08 baclofen Allergy loss of Verified 09/17/17 16:08 balance gabapentin Allergy loss of Verified 09/17/17 16:08 balance indomethacin Allergy Unknown Verified 09/17/17 16:08 insulin glargine Allergy Rash/Hives Verified 09/17/17 16:08 [From Basaglar KwikPen] ipratropium bromide Allergy Unknown Verified 09/17/17 16:08 [From Atrovent] ketorolac tromethamine Allergy Anaphylaxis Verified 09/17/17 16:08 [From Toradol] naproxen [From Naprosyn] Allergy Itching Verified 09/17/17 16:08 pantoprazole [From Protonix] Allergy memory loss Verified 09/17/17 16:08 pregabalin [From Lyrica] Allergy Unknown Verified 09/17/17 16:08 Sulfa (Sulfonamide Allergy Anaphylaxis Verified 09/17/17 16:08 Antibiotics) sulfamethoxazole Allergy Anaphylaxis Verified 09/17/17 16:08 [From Bactrim] tramadol Allergy Unknown Verified 09/17/17 16:08 trimethoprim [From Bactrim] Allergy Unknown Verified 09/17/17 16:08 venom-honey bee Allergy Anaphylaxis Verified 09/17/17 16:08 [bee venom (honey bee)] budesonide [From Symbicort] AdvReac Vomiting Verified 09/17/17 16:08 formoterol fumarate AdvReac Vomiting Verified 09/17/17 16:08 [From Symbicort] sucralose AdvReac Rapid Verified 09/17/17 16:08 [From Splenda (sucralose)] Heart Rate tramadol HCl [From Ultram] AdvReac SEIZURES Verified 09/17/17 16:08 Review of Systems ROS Statement: Those systems with pertinent positive or pertinent negative responses have been documented in the HPI. ROS Other: All systems not noted in ROS Statement are negative. Past Medical History Past Medical History: Coronary Artery Disease (CAD), Cancer, COPD, CVA/TIA, Diabetes Mellitus, GERD/Reflux, Hypertension Additional Past Medical History / Comment(s): HX: acute renal problem, neuropathy, CERVICAL CA. Perthes's dx affected short term memory. bilateral glaucoma. Last Myocardial Infarction Date:: 2001 or 2003 History of Any Multi-Drug Resistant Organisms: None Reported Past Surgical History: Cholecystectomy, Coronary Bypass/CABG, Heart Catheterization With Stent, Orthopedic Surgery Additional Past Surgical History / Comment(s): LEFT HIP ARTHOPLASTY. ORIF RIGHT ANKLE. Cervical cancer surgies. BILATERAL LASER EYE TX FOR GLAUCOMA. Laproscopy. TSS. stent to LAD in 10/2015-STENT TO DISTALCIRC 03/17/2017 Past Anesthesia/Blood Transfusion Reactions: No Reported Reaction Date of Last Stent Placement:: 03/2017 Past Psychological History: Anxiety Smoking Status: Never smoker Past Alcohol Use History: None Reported Past Drug Use History: None Reported - Past Family History Brother(s) Family Medical History: Deep Vein Thrombosis (DVT) Sister(s) Family Medical History: Cancer Father History Unknown: Yes Family Medical History: Deep Vein Thrombosis (DVT) Additional Family Medical History / Comment(s): Father at age 80yrs. of COPD and kidney faiilure. Mother History Unknown: Yes Family Medical History: Diabetes Mellitus Additional Family Medical History / Comment(s): Mother of diabetes at age 55 yrs. General Exam - General Exam Comments Initial Comments: Well-appearing 56-year-old female. Alert and oriented. No significant distress. Limitations: no limitations General appearance: alert, in no apparent distress Head exam: Present: atraumatic, normocephalic, normal inspection Eye exam: Present: normal appearance, PERRL, EOMI. Absent: scleral icterus, conjunctival injection, periorbital swelling ENT exam: Present: normal exam, normal oropharynx, mucous membranes moist, other (Patient also lost her voice. Laryngitis. Follow-up) Neck exam: Present: normal inspection, full ROM Respiratory exam: Present: wheezes (Her wheezing noted.). Absent: normal lung sounds bilaterally, respiratory distress, rales, rhonchi, stridor Cardiovascular Exam: Present: regular rate, normal rhythm, normal heart sounds. Absent: systolic murmur, diastolic murmur, rubs, gallop, clicks GI/Abdominal exam: Present: soft, normal bowel sounds. Absent: distended, tenderness, guarding, rebound, rigid Extremities exam: Present: normal inspection, full ROM, normal capillary refill. Absent: tenderness, pedal edema, joint swelling, calf tenderness Back exam: Present: normal inspection Neurological exam: Present: alert, oriented X3, CN II-XII intact Psychiatric exam: Present: normal affect, normal mood Skin exam: Present: warm, dry, intact, normal color. Absent: rash Course Vital Signs 09/17/17 09/17/17 09/17/17 16:05 17:03 17:09 Temperature 98.4 F Pulse Rate 71 72 74 Respiratory 18 Rate Blood Pressure 182/73 O2 Sat by Pulse 100 Oximetry Medical Decision Making - Medical Decision Making 56-year-old female presents emergency department today with cough, and losing her voice. She is evidence of laryngitis. Cough has been somewhat productive for history. Essentially some mild wheezing. Given breathing treatment reports she has much improvement. Vital signs are stable. She has no chest pain or any other symptoms. Chest x-ray is negative for any ammonia. Patient family understands that she is to monitor her blood sugars. Patient will be discharged with steroids, azithromycin and treatment for her nebulizer. - Radiology Data Radiology results: report reviewed No active cardiopulmonary disease. Normal heart. No acute changes. Disposition Clinical Impression: Laryngitis, Bronchitis Disposition: HOME SELF-CARE Condition: Good Instructions: Upper Respiratory Infection (ED) Additional Instructions: Patient advised to follow-up with primary care physician. Take the antibiotic is a steroids as prescribed. Make sure you're just see her insulin appropriately according to her sliding scale. Also recommended picking up a humidifier's. Return to the emergency department if any alarming signs or symptoms occur. Prescriptions: Albuterol Inhaler [Ventolin Hfa Inhaler] 1 - 2 puff INHALATION RT-Q6H PRN #1 inhaler PRN Reason: Shortness Of Breath Or Wheezing Azithromycin [Zithromax Z-pack] 250 mg PO DIRECTED #6 tab Ipratropium-Albuterol Nebulize [Duoneb 0.5 mg-3 mg/3 ml Soln] 3 ml INHALATION TID #30 neb predniSONE 10 mg PO DAILY #15 tab Is patient prescribed a controlled substance at d/c from ED?: No Referrals: Jim Bell MD [Primary Care Provider] - 1-2 days Time of Disposition: 17:00
[2017-09-17 17:09] VITALS: PULSE 74
[2017-09-17 18:10] VITALS: BP 155/75; TEMP 98.5
== END 2017-09-17 18:18 | disposition home or self-care (01) ==
LOC: EC 16:04
DX: J04.0 Acute laryngitis (principal); J40 Bronchitis, not specified as acute or chronic; I25.10 Atherosclerotic heart disease of native coronary artery without angina pectoris; J44.9 Chronic obstructive pulmonary disease, unspecified; E11.40 Type 2 diabetes mellitus with diabetic neuropathy, unspecified; K21.9 Gastro-esophageal reflux disease without esophagitis; Z86.73 Personal history of transient ischemic attack (TIA), and cerebral infarction without residual deficits; Z85.41 Personal history of malignant neoplasm of cervix uteri; Z95.1 Presence of aortocoronary bypass graft; Z96.642 Presence of left artificial hip joint; Z95.5 Presence of coronary angioplasty implant and graft; Z79.02 Long term (current) use of antithrombotics/antiplatelets; Z79.4 Long term (current) use of insulin; Z79.899 Other long term (current) drug therapy; Z91.048 Other nonmedicinal substance allergy status; Z88.8 Allergy status to other drugs, medicaments and biological substances; Z88.6 Allergy status to analgesic agent; Z88.2 Allergy status to sulfonamides; Z91.030 Bee allergy status
CPT/HCPCS: 94640; 71046; 99284; J7512

== ENCOUNTER 2017-09-19 01:14 | Emergency (ER) | payer OTHER ==
[2017-09-19 01:19] VITALS: RESP 20
[2017-09-19 01:25] LABS: Glucose,Whole Blood 394 mg/dL (75-99)
--- NOTE | 2017-09-19 01:31 | ED ---
General Adult HPI - General Chief complaint: Overdose Stated complaint: Overdose Time Seen by Provider: 09/19/17 01:28 Source: patient Mode of arrival: EMS Limitations: no limitations - History of Present Illness Initial comments: Alexia is a 56-year-old female with insulin-dependent diabetes who presents to the ED today after Lantus and Apidra got mixed up. Patient reports that she is currently on steroids for an upper respiratory tract infection because of this her glucose is been mildly elevated. She was supposed to give herself 50 units of Lantus today however inadvertently administered 50 units of Apidra. She states that she has been told by her doctor that this medication will cause her glucose to drop rapidly therefore she became very anxious that her glucose may drop to rapidly so she called 911. EMS reports that on their arrival the patient's glucose was in the 420s, on arrival in the ER patient's glucose was 394. She ate dinner at 5 PM last night, she states that she had 2 cheeseburgers at that time. - Related Data Home Medications Medication Instructions Recorded Confirmed Clopidogrel Bisulfate [Plavix] 75 mg PO DAILY 06/11/13 09/19/17 ALPRAZolam [Xanax] 0.25 mg PO TID PRN 09/27/14 09/19/17 Albuterol Nebulized [Ventolin 2.5 mg INHALATION Q6HR PRN 05/07/15 09/19/17 Nebulized] Metoprolol Tartrate [Lopressor] 25 mg PO BID 05/07/15 09/19/17 Insulin Glargine [Lantus] 50 unit SQ BID 08/26/15 09/19/17 Atorvastatin [Lipitor] 40 mg PO DAILY 10/21/15 09/19/17 Losartan Potassium [Cozaar] 25 mg PO DAILY 02/07/16 09/19/17 Cyanocobalamin [Vitamin B-12] 500 mcg PO DAILY 09/16/16 09/19/17 Potassium 99 mg PO DAILY 09/16/16 09/19/17 amLODIPine BESYLATE [Norvasc] 5 mg PO DAILY 09/16/16 09/19/17 Ranolazine [Ranexa] 500 mg PO DAILY 10/27/16 09/19/17 Insulin Glulisine [Apidra] 0 unit SQ ACHS PRN 03/08/17 09/19/17 Ranitidine HCl 300 mg PO DAILY 03/08/17 09/19/17 Topiramate [Topamax] 100 mg PO BID 03/08/17 09/19/17 Previous Rx's Medication Instructions Recorded Nitroglycerin Sl Tabs [Nitrostat] 0.4 mg SUBLINGUAL Q5M PRN #25 tab 10/11/15 Magnesium Oxide 400 mg PO DAILY #20 tablet 05/10/16 Albuterol Inhaler [Ventolin Hfa 1 - 2 puff INHALATION RT-Q6H PRN 09/17/17 Inhaler] #1 inhaler Azithromycin [Zithromax Z-pack] 250 mg PO DIRECTED #6 tab 09/17/17 Ipratropium-Albuterol Nebulize 3 ml INHALATION TID #30 neb 09/17/17 [Duoneb 0.5 mg-3 mg/3 ml Soln] predniSONE 10 mg PO DAILY #15 tab 09/17/17 Allergies Allergy/AdvReac Type Severity Reaction Status Date / Time adhesive tape Allergy Rash/Hives Verified 09/17/17 16:08 baclofen Allergy loss of Verified 09/17/17 16:08 balance gabapentin Allergy loss of Verified 09/17/17 16:08 balance indomethacin Allergy Unknown Verified 09/17/17 16:08 insulin glargine Allergy Rash/Hives Verified 09/17/17 16:08 [From Basaglar KwikPen] ipratropium bromide Allergy Unknown Verified 09/17/17 16:08 [From Atrovent] ketorolac tromethamine Allergy Anaphylaxis Verified 09/17/17 16:08 [From Toradol] naproxen [From Naprosyn] Allergy Itching Verified 09/17/17 16:08 pantoprazole [From Protonix] Allergy memory loss Verified 09/17/17 16:08 pregabalin [From Lyrica] Allergy Unknown Verified 09/17/17 16:08 Sulfa (Sulfonamide Allergy Anaphylaxis Verified 09/17/17 16:08 Antibiotics) sulfamethoxazole Allergy Anaphylaxis Verified 09/17/17 16:08 [From Bactrim] tramadol Allergy Unknown Verified 09/17/17 16:08 trimethoprim [From Bactrim] Allergy Unknown Verified 09/17/17 16:08 venom-honey bee Allergy Anaphylaxis Verified 09/17/17 16:08 [bee venom (honey bee)] budesonide [From Symbicort] AdvReac Vomiting Verified 09/17/17 16:08 formoterol fumarate AdvReac Vomiting Verified 09/17/17 16:08 [From Symbicort] sucralose AdvReac Rapid Verified 09/17/17 16:08 [From Splenda (sucralose)] Heart Rate tramadol HCl [From Ultram] AdvReac SEIZURES Verified 09/17/17 16:08 Review of Systems ROS Statement: Those systems with pertinent positive or pertinent negative responses have been documented in the HPI. ROS Other: All systems not noted in ROS Statement are negative. Past Medical History Past Medical History: Coronary Artery Disease (CAD), Cancer, COPD, CVA/TIA, Diabetes Mellitus, GERD/Reflux, Hypertension Additional Past Medical History / Comment(s): HX: acute renal problem, neuropathy, CERVICAL CA. Perthes's dx affected short term memory. bilateral glaucoma. Last Myocardial Infarction Date:: 2001 or 2003 History of Any Multi-Drug Resistant Organisms: None Reported Past Surgical History: Cholecystectomy, Coronary Bypass/CABG, Heart Catheterization With Stent, Orthopedic Surgery Additional Past Surgical History / Comment(s): LEFT HIP ARTHOPLASTY. ORIF RIGHT ANKLE. Cervical cancer surgies. BILATERAL LASER EYE TX FOR GLAUCOMA. Laproscopy. TSS. stent to LAD in 10/2015-STENT TO DISTALCIRC 03/17/2017 Past Anesthesia/Blood Transfusion Reactions: No Reported Reaction Date of Last Stent Placement:: 03/2017 Past Psychological History: Anxiety Smoking Status: Never smoker Past Alcohol Use History: None Reported Past Drug Use History: None Reported - Past Family History Brother(s) Family Medical History: Deep Vein Thrombosis (DVT) Sister(s) Family Medical History: Cancer Father History Unknown: Yes Family Medical History: Deep Vein Thrombosis (DVT) Additional Family Medical History / Comment(s): Father at age 80yrs. of COPD and kidney faiilure. Mother History Unknown: Yes Family Medical History: Diabetes Mellitus Additional Family Medical History / Comment(s): Mother of diabetes at age 55 yrs. General Exam Limitations: no limitations General appearance: alert, anxious Head exam: Present: atraumatic, normocephalic Eye exam: Present: other (Anisocoria) ENT exam: Present: mucous membranes moist Neck exam: Present: full ROM Respiratory exam: Absent: respiratory distress Cardiovascular Exam: Present: regular rate, normal rhythm GI/Abdominal exam: Present: soft. Absent: distended Rectal exam: Present: deferred Extremities exam: Present: normal inspection Neurological exam: Present: alert, oriented X3 Psychiatric exam: Present: anxious Skin exam: Present: warm, dry Course Vital Signs 09/19/17 09/19/17 01:16 04:22 Temperature 97.6 F 97.8 F Pulse Rate 73 60 Respiratory 20 20 Rate Blood Pressure 196/68 O2 Sat by Pulse 100 98 Oximetry Medical Decision Making - Medical Decision Making Patient was seen and evaluated, history is obtained from the patient and significant other at bedside Patient received 50 units subcutaneous Apidra Review of this medication reveals time of onset approximately 15-30 minutes - we will plan to monitor patient with every 30 minute blood glucose Patient was given a sandwich to eat I offered the patient by mouth Ativan as she does take seen next home and does appear to be very anxious. However patient declined stating that she'll be too sleepy to go home in 3 or 4 hours if she takes oral benzos now. Patient was able to eat a sandwich, her blood glucose was monitored over the course of 3 hours. After eating her blood glucose is noted to increase slightly but then continued to down trend. After 3 hours and evaluation of the patient's blood glucose remained in the 350s. At this time I feel the patient is stable for discharge home with plan to monitor her glucose, take short acting insulin throughout the day today and resume her Lantus tonight. - Lab Data Lab Results 09/19/17 09/19/17 09/19/17 Range/Units 01:20 02:02 02:39 POC Glucose (mg/dL) 394 H 391 H 415 H (75-99) mg/dL POC Glu [facility] Patricia Menchaca James Arft, James 09/19/17 09/19/17 Range/Units 03:15 03:57 POC Glucose (mg/dL) 387 H 358 H (75-99) mg/dL POC Glu [facility] [employer] Mark Desouza James Disposition Clinical Impression: Accidental drug ingestion Disposition: HOME SELF-CARE Condition: Good Instructions: What is Insulin (ED) Is patient prescribed a controlled substance at d/c from ED?: No Referrals: Jim Bell MD [Primary Care Provider] - 1-2 days Time of Disposition: 04:10
[2017-09-19 02:21] LABS: Glucose,Whole Blood 391 mg/dL (75-99)
[2017-09-19 02:57] LABS: Glucose,Whole Blood 415 mg/dL (75-99)
[2017-09-19 03:20] LABS: Glucose,Whole Blood 387 mg/dL (75-99)
[2017-09-19 04:12] LABS: Glucose,Whole Blood 358 mg/dL (75-99)
[2017-09-19 04:23] VITALS: BP 196/68; PULSE 60; TEMP 97.8
== END 2017-09-19 04:23 | disposition home or self-care (01) ==
LOC: EC 01:14
DX: T38.3X1A Poisoning by insulin and oral hypoglycemic [antidiabetic] drugs, accidental (unintentional), initial encounter (principal); F41.9 Anxiety disorder, unspecified; H57.02 Anisocoria; J06.9 Acute upper respiratory infection, unspecified; E11.40 Type 2 diabetes mellitus with diabetic neuropathy, unspecified; I10 Essential (primary) hypertension; I25.10 Atherosclerotic heart disease of native coronary artery without angina pectoris; J44.9 Chronic obstructive pulmonary disease, unspecified; K21.9 Gastro-esophageal reflux disease without esophagitis; Z79.4 Long term (current) use of insulin; Z79.02 Long term (current) use of antithrombotics/antiplatelets; Z79.52 Long term (current) use of systemic steroids; Z79.899 Other long term (current) drug therapy; Z88.2 Allergy status to sulfonamides; Z88.5 Allergy status to narcotic agent; Z88.6 Allergy status to analgesic agent; Z88.8 Allergy status to other drugs, medicaments and biological substances; Z91.030 Bee allergy status; Z91.048 Other nonmedicinal substance allergy status; Z86.73 Personal history of transient ischemic attack (TIA), and cerebral infarction without residual deficits; Z85.41 Personal history of malignant neoplasm of cervix uteri; Z98.890 Other specified postprocedural states; Z83.3 Family history of diabetes mellitus
CPT/HCPCS: 36415; 99284

== ENCOUNTER 2017-10-20 19:03 | Emergency (ER) | payer OTHER ==
[2017-10-20 19:17] VITALS: BP 178/85; PULSE 79; RESP 18; TEMP 99.1
--- NOTE | 2017-10-20 20:20 | XR ---
EXAMINATION TYPE: XR foot complete RT DATE OF EXAM: 10/20/2017 COMPARISON: 04/21/2014 HISTORY: Foot pain TECHNIQUE: 3 views. FINDINGS: There is soft tissue swelling lateral to the fifth MP joint. There is a plate with screws fixing a di stal fibula. There are 2 screws fixing the medial malleolus. There is some deformity of the proximal phalanx of the second and third toes related to old healed fracture. Metatarsals are intact. I see no acute fracture. IMPRESSION: Lateral soft tissue swelling is new compared to old exam. No acute bony abnormality.
--- NOTE | 2017-10-20 20:32 | ED ---
General Adult HPI - General Chief complaint: Extremity Injury, Lower Stated complaint: RT FOOT PAIN Time Seen by Provider: 10/20/17 19:22 Source: patient, RN notes reviewed Mode of arrival: wheelchair Limitations: no limitations - History of Present Illness Initial comments: 57-year-old female with a history of diabetes presents to the emergency determine for chief complaint of right foot pain. Patient states that when she woke up this morning her foot was fine. She denied any pain whatsoever. However about an hour after putting her shoe on she felt a sharp pain. She states she thought she got bit by something. About 45 minutes ago patient started to notice lateral right foot pain. When she looked at her foot she noticed it was swollen and erythematous. She also noticed she had a "abscess" on the lateral aspect of her foot. Patient denies any fevers or chills at home. She denies any pain or discoloration in the foot whatsoever prior to today. She denies noticing any injury to the foot recently. Patient has no other complaints at this time including shortness of breath, chest pain, abdominal pain, nausea or vomiting, headache, or visual changes. - Related Data Home Medications Medication Instructions Recorded Confirmed Clopidogrel Bisulfate [Plavix] 75 mg PO DAILY 06/11/13 10/20/17 ALPRAZolam [Xanax] 0.25 mg PO TID PRN 09/27/14 10/20/17 Albuterol Nebulized [Ventolin 2.5 mg INHALATION RT-QID PRN 05/07/15 10/20/17 Nebulized] Metoprolol Tartrate [Lopressor] 25 mg PO BID 05/07/15 10/20/17 Insulin Glargine [Lantus] 50 unit SQ BID 08/26/15 10/20/17 Atorvastatin [Lipitor] 40 mg PO DAILY 10/21/15 10/20/17 Losartan Potassium [Cozaar] 25 mg PO DAILY 02/07/16 10/20/17 Cyanocobalamin [Vitamin B-12] 500 mcg PO DAILY 09/16/16 10/20/17 Potassium 99 mg PO DAILY 09/16/16 10/20/17 amLODIPine BESYLATE [Norvasc] 5 mg PO DAILY 09/16/16 10/20/17 Ranolazine [Ranexa] 500 mg PO DAILY 10/27/16 10/20/17 Insulin Glulisine [Apidra] 5 unit SQ AC-TID 03/08/17 10/20/17 Ranitidine HCl 300 mg PO DAILY 03/08/17 10/20/17 Topiramate [Topamax] 100 mg PO BID 03/08/17 10/20/17 Ipratropium-Albuterol Nebulize 3 ml INHALATION RT-TID 10/20/17 10/20/17 [Duoneb 0.5 mg-3 mg/3 ml Soln] Previous Rx's Medication Instructions Recorded Nitroglycerin Sl Tabs [Nitrostat] 0.4 mg SUBLINGUAL Q5M PRN #25 tab 10/11/15 Magnesium Oxide 400 mg PO DAILY #20 tablet 05/10/16 Albuterol Inhaler [Ventolin Hfa 1 - 2 puff INHALATION RT-Q6H PRN 09/17/17 Inhaler] #1 inhaler Cephalexin [Keflex] 500 mg PO Q8HR 10 Days cap 10/20/17 Allergies Allergy/AdvReac Type Severity Reaction Status Date / Time adhesive tape Allergy Rash/Hives Verified 10/20/17 19:31 baclofen Allergy loss of Verified 10/20/17 19:31 balance gabapentin Allergy loss of Verified 10/20/17 19:31 balance indomethacin Allergy Unknown Verified 10/20/17 19:31 insulin glargine Allergy Rash/Hives Verified 10/20/17 19:31 [From Basaglar KwikPen] ipratropium bromide Allergy Unknown Verified 10/20/17 19:31 [From Atrovent] ketorolac tromethamine Allergy Anaphylaxis Verified 10/20/17 19:31 [From Toradol] naproxen [From Naprosyn] Allergy Itching Verified 10/20/17 19:31 pantoprazole [From Protonix] Allergy memory loss Verified 10/20/17 19:31 pregabalin [From Lyrica] Allergy Unknown Verified 10/20/17 19:31 Sulfa (Sulfonamide Allergy Anaphylaxis Verified 10/20/17 19:31 Antibiotics) sulfamethoxazole Allergy Anaphylaxis Verified 10/20/17 19:31 [From Bactrim] tramadol Allergy Unknown Verified 10/20/17 19:31 trimethoprim [From Bactrim] Allergy Unknown Verified 10/20/17 19:31 venom-honey bee Allergy Anaphylaxis Verified 10/20/17 19:31 [bee venom (honey bee)] budesonide [From Symbicort] AdvReac Vomiting Verified 10/20/17 19:31 formoterol fumarate AdvReac Vomiting Verified 10/20/17 19:31 [From Symbicort] sucralose AdvReac Rapid Verified 10/20/17 19:31 [From Splenda (sucralose)] Heart Rate tramadol HCl [From Ultram] AdvReac SEIZURES Verified 10/20/17 19:31 Review of Systems ROS Statement: Those systems with pertinent positive or pertinent negative responses have been documented in the HPI. ROS Other: All systems not noted in ROS Statement are negative. Past Medical History Past Medical History: Coronary Artery Disease (CAD), Cancer, COPD, CVA/TIA, Diabetes Mellitus, GERD/Reflux, Hypertension Additional Past Medical History / Comment(s): HX: acute renal problem, neuropathy, CERVICAL CA. Perthes's dx affected short term memory. bilateral glaucoma. Last Myocardial Infarction Date:: 2001 or 2003 History of Any Multi-Drug Resistant Organisms: None Reported Past Surgical History: Cholecystectomy, Coronary Bypass/CABG, Heart Catheterization With Stent, Orthopedic Surgery Additional Past Surgical History / Comment(s): LEFT HIP ARTHOPLASTY. ORIF RIGHT ANKLE. Cervical cancer surgies. BILATERAL LASER EYE TX FOR GLAUCOMA. Laproscopy. TSS. stent to LAD in 10/2015-STENT TO DISTALCIRC 03/17/2017 Past Anesthesia/Blood Transfusion Reactions: No Reported Reaction Date of Last Stent Placement:: 03/2017 Past Psychological History: Anxiety Smoking Status: Never smoker Past Alcohol Use History: None Reported Past Drug Use History: None Reported - Past Family History Brother(s) Family Medical History: Deep Vein Thrombosis (DVT) Sister(s) Family Medical History: Cancer Father History Unknown: Yes Family Medical History: Deep Vein Thrombosis (DVT) Additional Family Medical History / Comment(s): Father at age 80yrs. of COPD and kidney faiilure. Mother History Unknown: Yes Family Medical History: Diabetes Mellitus Additional Family Medical History / Comment(s): Mother of diabetes at age 55 yrs. General Exam Limitations: no limitations General appearance: alert, in no apparent distress Head exam: Present: atraumatic, normocephalic, normal inspection Eye exam: Present: normal appearance, PERRL, EOMI. Absent: scleral icterus, conjunctival injection, periorbital swelling ENT exam: Present: normal exam, mucous membranes moist Neck exam: Present: normal inspection, full ROM. Absent: tenderness, meningismus, lymphadenopathy Respiratory exam: Present: normal lung sounds bilaterally. Absent: respiratory distress, wheezes, rales, rhonchi, stridor Cardiovascular Exam: Present: regular rate, normal rhythm, normal heart sounds. Absent: systolic murmur, diastolic murmur, rubs, gallop, clicks Extremities exam: Present: tenderness (Mild tenderness noted of the fourth and fifth metatarsal areas on the erythema), normal capillary refill (Capillary refill less than 2 seconds and pedal pulse 2+ in the right lower extremity), joint swelling (Patient does have mild edema and erythema noted of the fourth and fifth metatarsals. ), other (Sensation is somewhat diminished in the right lower extremity but is equal to the left lower extremity and is consistent with patient's past neuropathy symptoms. There is a 2cm x 1 cm blister noted to later aspect of 5th MTP. No abscess. mild surrounding erythema.). Absent: full ROM (Patient has somewhat limited range of motion of the fourth and fifth toes but is able to move them. Full range motion of the left ankle.) Course Vital Signs 10/20/17 19:15 Temperature 99.1 F Pulse Rate 79 Respiratory 18 Rate Blood Pressure 178/85 O2 Sat by Pulse 98 Oximetry Medical Decision Making - Medical Decision Making 57-year-old female presents to the emergency department for a chief complaint of right-sided lateral foot pain 45 minutes. Patient states she noticed a pinched on the lateral side of her right foot this morning but denies any erythematous or pain until about 45 minutes ago when she noticed a blister. Vitals are stable, patient is afebrile. On exam patient has erythema noted of the lateral aspect of the right foot over the fourth and fifth MTP joints. There is a 2 cm x 1 cm bulla similar to a blister noted on the lateral fifth MTP joint. No evidence of abscess. X-ray shows lateral soft tissue swelling which is new compared to old exam. Patient likely had a friction injury to the lateral aspect of the foot causing a blister to form. Unlikely to be infection as pain and erythema started today about 45 minutes ago. However as there is slight erythema and warmth noted on the foot and patient has diabetes she will be treated with an antibiotic. She will follow up with primary care in 1-2 days. She will return if she has any worsening symptoms or fevers. Disposition Clinical Impression: Foot pain, right Disposition: HOME SELF-CARE Condition: Good Instructions: Cellulitis (ED), R.I.C.E. Treatment (ED) Additional Instructions: Please take antibiotic as directed. Please monitor for worsening symptoms such as fever or chills or increased pain and return if these occur. Follow-up with primary care in 1-2 days. Prescriptions: Cephalexin [Keflex] 500 mg PO Q8HR 10 Days cap Is patient prescribed a controlled substance at d/c from ED?: No Referrals: Jim Bell MD [Primary Care Provider] - 1-2 days Time of Disposition: 20:51
[2017-10-20] MEDS ORDERED: CEPHALEXIN 500MG STARTER PACK 4 CAP BTL PO STA (20:54)
== END 2017-10-20 21:20 | disposition home or self-care (01) ==
LOC: EC 19:03
DX: M79.671 Pain in right foot (principal); M79.89 Other specified soft tissue disorders; I25.10 Atherosclerotic heart disease of native coronary artery without angina pectoris; I25.2 Old myocardial infarction; J44.9 Chronic obstructive pulmonary disease, unspecified; K21.9 Gastro-esophageal reflux disease without esophagitis; I10 Essential (primary) hypertension; F41.9 Anxiety disorder, unspecified; E11.40 Type 2 diabetes mellitus with diabetic neuropathy, unspecified; Z85.41 Personal history of malignant neoplasm of cervix uteri; Z86.73 Personal history of transient ischemic attack (TIA), and cerebral infarction without residual deficits; Z79.01 Long term (current) use of anticoagulants; Z79.4 Long term (current) use of insulin; Z79.899 Other long term (current) drug therapy; Z88.6 Allergy status to analgesic agent; Z88.8 Allergy status to other drugs, medicaments and biological substances; Z88.2 Allergy status to sulfonamides; Z88.5 Allergy status to narcotic agent; Z91.030 Bee allergy status; Z91.048 Other nonmedicinal substance allergy status; Z95.1 Presence of aortocoronary bypass graft; Z95.5 Presence of coronary angioplasty implant and graft; Z96.642 Presence of left artificial hip joint
CPT/HCPCS: 99283

== ENCOUNTER 2017-11-03 20:50 | Emergency (ER) | payer OTHER ==
[2017-11-03 21:05] VITALS: PULSE 68
[2017-11-03] MEDS ORDERED: HYDROcodone/APAP 5-325MG 1 EACH TAB PO STA (22:04)
[2017-11-03 22:05] VITALS: BP 159/90; RESP 16; TEMP 98.4
--- NOTE | 2017-11-03 22:15 | ED ---
Fall HPI - General Source: patient Mode of arrival: wheelchair <Alexa Garnica - Last Filed: 11/04/17 04:31> <Sunita Polanco - Last Filed: 11/04/17 07:42> - General Chief Complaint: Fall Stated Complaint: Fall, arm/shoulder pain Time Seen by Provider: 11/03/17 21:21 - History of Present Illness Initial Comments: 57-year-old female patient presents to the emergency department today for evaluation of right upper arm pain. Patient states that around 6 PM this evening she tripped over some boxes and fell landing on the right arm. This and states pain is mostly in her shoulder and upper arm and radiates down to her hand. She denies any numbness or tingling to the extremity. Patient states that she had a previous injury to the arm in June of this year and has been having chronic pain issues with the arm since. Patient denies hitting her head or losing consciousness. She denies any other injuries. Patient denies any headache, neck pain, back pain, chest pain, shortness of breath, dizziness, weakness, abdominal pain, nausea, vomiting, or difficulties with bowel movements or urination. (Alexa Garnica) - Related Data Home Medications Medication Instructions Recorded Confirmed Clopidogrel Bisulfate [Plavix] 75 mg PO DAILY 06/11/13 10/20/17 ALPRAZolam [Xanax] 0.25 mg PO TID PRN 09/27/14 10/20/17 Albuterol Nebulized [Ventolin 2.5 mg INHALATION RT-QID PRN 05/07/15 10/20/17 Nebulized] Metoprolol Tartrate [Lopressor] 25 mg PO BID 05/07/15 10/20/17 Insulin Glargine [Lantus] 50 unit SQ BID 08/26/15 10/20/17 Atorvastatin [Lipitor] 40 mg PO DAILY 10/21/15 10/20/17 Losartan Potassium [Cozaar] 25 mg PO DAILY 02/07/16 10/20/17 Cyanocobalamin [Vitamin B-12] 500 mcg PO DAILY 09/16/16 10/20/17 Potassium 99 mg PO DAILY 09/16/16 10/20/17 amLODIPine BESYLATE [Norvasc] 5 mg PO DAILY 09/16/16 10/20/17 Ranolazine [Ranexa] 500 mg PO DAILY 10/27/16 10/20/17 Insulin Glulisine [Apidra] 5 unit SQ AC-TID 03/08/17 10/20/17 Ranitidine HCl 300 mg PO DAILY 03/08/17 10/20/17 Topiramate [Topamax] 100 mg PO BID 03/08/17 10/20/17 Ipratropium-Albuterol Nebulize 3 ml INHALATION RT-TID 10/20/17 10/20/17 [Duoneb 0.5 mg-3 mg/3 ml Soln] Previous Rx's Medication Instructions Recorded Nitroglycerin Sl Tabs [Nitrostat] 0.4 mg SUBLINGUAL Q5M PRN #25 tab 10/11/15 Magnesium Oxide 400 mg PO DAILY #20 tablet 05/10/16 Albuterol Inhaler [Ventolin Hfa 1 - 2 puff INHALATION RT-Q6H PRN 09/17/17 Inhaler] #1 inhaler Cephalexin [Keflex] 500 mg PO Q8HR 10 Days cap 10/20/17 Allergies Allergy/AdvReac Type Severity Reaction Status Date / Time adhesive tape Allergy Rash/Hives Verified 11/03/17 21:05 baclofen Allergy loss of Verified 11/03/17 21:05 balance gabapentin Allergy loss of Verified 11/03/17 21:05 balance indomethacin Allergy Unknown Verified 11/03/17 21:05 insulin glargine Allergy Rash/Hives Verified 11/03/17 21:05 [From Basaglar KwikPen] ipratropium bromide Allergy Unknown Verified 11/03/17 21:05 [From Atrovent] ketorolac tromethamine Allergy Anaphylaxis Verified 11/03/17 21:05 [From Toradol] naproxen [From Naprosyn] Allergy Itching Verified 11/03/17 21:05 pantoprazole [From Protonix] Allergy memory loss Verified 11/03/17 21:05 pregabalin [From Lyrica] Allergy Unknown Verified 11/03/17 21:05 Sulfa (Sulfonamide Allergy Anaphylaxis Verified 11/03/17 21:05 Antibiotics) sulfamethoxazole Allergy Anaphylaxis Verified 11/03/17 21:05 [From Bactrim] tramadol Allergy Unknown Verified 11/03/17 21:05 trimethoprim [From Bactrim] Allergy Unknown Verified 11/03/17 21:05 venom-honey bee Allergy Anaphylaxis Verified 11/03/17 21:05 [bee venom (honey bee)] budesonide [From Symbicort] AdvReac Vomiting Verified 11/03/17 21:05 formoterol fumarate AdvReac Vomiting Verified 11/03/17 21:05 [From Symbicort] sucralose AdvReac Rapid Verified 11/03/17 21:05 [From Splenda (sucralose)] Heart Rate tramadol HCl [From Ultram] AdvReac SEIZURES Verified 11/03/17 21:05 Review of Systems ROS Other: All systems not noted in ROS Statement are negative. <Alexa Garnica M - Last Filed: 11/04/17 04:31> ROS Other: All systems not noted in ROS Statement are negative. <Sunita Polanco - Last Filed: 11/04/17 07:42> ROS Statement: Those systems with pertinent positive or pertinent negative responses have been documented in the HPI. Past Medical History Past Medical History: Coronary Artery Disease (CAD), Cancer, COPD, CVA/TIA, Diabetes Mellitus, GERD/Reflux, Hypertension Additional Past Medical History / Comment(s): HX: acute renal problem, neuropathy, CERVICAL CA. Perthes's dx affected short term memory. bilateral glaucoma. Last Myocardial Infarction Date:: 2001 or 2003 History of Any Multi-Drug Resistant Organisms: None Reported Past Surgical History: Cholecystectomy, Coronary Bypass/CABG, Heart Catheterization With Stent, Orthopedic Surgery Additional Past Surgical History / Comment(s): LEFT HIP ARTHOPLASTY. ORIF RIGHT ANKLE. Cervical cancer surgies. BILATERAL LASER EYE TX FOR GLAUCOMA. Laproscopy. TSS. stent to LAD in 10/2015-STENT TO DISTALCIRC 03/17/2017 Past Anesthesia/Blood Transfusion Reactions: No Reported Reaction Date of Last Stent Placement:: 03/2017 Past Psychological History: Anxiety Smoking Status: Never smoker Past Alcohol Use History: None Reported Past Drug Use History: None Reported - Past Family History Brother(s) Family Medical History: Deep Vein Thrombosis (DVT) Sister(s) Family Medical History: Cancer Father History Unknown: Yes Family Medical History: Deep Vein Thrombosis (DVT) Additional Family Medical History / Comment(s): Father at age 80yrs. of COPD and kidney faiilure. Mother History Unknown: Yes Family Medical History: Diabetes Mellitus Additional Family Medical History / Comment(s): Mother of diabetes at age 55 yrs. <DanikaChuAlexa M - Last Filed: 11/04/17 04:31> General Exam Limitations: no limitations General appearance: alert, in no apparent distress, other (This is a well- developed, well-nourished adult female patient in no acute distress. Vital signs upon presentation are temperature 98.3F, pulse 68, respirations 18, blood pressure 162/75, pulse ox 100% on room air.) Eye exam: Present: normal appearance, PERRL, EOMI. Absent: scleral icterus, conjunctival injection, periorbital swelling ENT exam: Present: normal exam, normal oropharynx, mucous membranes moist Neck exam: Present: normal inspection, full ROM, other (Nontender, no step-off, no deformity to firm midline palpation of the posterior cervical spine. Full range of motion without pain or limitation.). Absent: tenderness, meningismus, lymphadenopathy Respiratory exam: Present: normal lung sounds bilaterally. Absent: respiratory distress, wheezes, rales, rhonchi, stridor Cardiovascular Exam: Present: regular rate, normal rhythm, normal heart sounds. Absent: systolic murmur, diastolic murmur, rubs, gallop, clicks Extremities exam: Present: normal inspection, full ROM, tenderness (Tenderness over the right shoulder and humerus.), normal capillary refill, other (Skin to the right arm is pink, warm, and dry. Cap refills less than 3 seconds. Radial pulses 2+ and equal bilaterally. No evidence of ecchymosis or surface trauma.) . Absent: pedal edema, joint swelling, calf tenderness Back exam: Present: normal inspection, other (Nontender, no step-off, no deformity to firm midline palpation of the thoracic and lumbar vertebrae. Full range of motion without pain or limitation.). Absent: vertebral tenderness Neurological exam: Present: alert, oriented X3, CN II-XII intact Psychiatric exam: Present: normal affect, normal mood Skin exam: Present: warm, dry, intact, normal color. Absent: rash <Alexa Garnica M - Last Filed: 11/04/17 04:31> Vital Signs 11/03/17 11/03/17 21:00 22:03 Temperature 98.3 F 98.4 F Pulse Rate 68 68 Respiratory 18 16 Rate Blood Pressure 162/75 159/90 O2 Sat by Pulse 100 99 Oximetry Medical Decision Making - Radiology Data Radiology results: report reviewed, image reviewed <Alexa Garnica - Last Filed: 11/04/17 04:31> <Sunita Polanco - Last Filed: 11/04/17 07:42> - Medical Decision Making 57-year-old female patient presented to the emergency department today for evaluation of right upper arm pain after expressing a fall at home. Physical examination was unremarkable. Patient had full range of motion. Neurovascular status is intact. X-ray showed no acute abnormalities of the humerus her right shoulder. Patient be discharged home at this time to follow-up with her primary care physician for recheck in 1-2 days. Return parameters were discussed in detail. She verbalizes understanding and agrees this plan. (Alexa Garnica) I was available for consultation in the emergency department. The history and physical exam were done by the midlevel provider. I was consulted for this patient's care. I reviewed the case with the midlevel provider and based on their presentation of the patient, I agree with the assessment, medical decision making and plan of care as documented. (Sunita Polanco) - Radiology Data Three-view x-ray of the right humerus was obtained. Report was reviewed in its entirety. Impression by Dr. Tate shows negative right humerus exam. 3 views of the right shoulder obtained. Report was reviewed in its entirety. Impression by Dr. Tate shows no acute abnormality of the right shoulder. ( Alexa Garnica) Disposition Is patient prescribed a controlled substance at d/c from ED?: No Time of Disposition: 23:16 <Alexa Garnica - Last Filed: 11/04/17 04:31> <Sunita Polanco - Last Filed: 11/04/17 07:42> Clinical Impression: Right shoulder strain Disposition: HOME SELF-CARE Condition: Good Instructions: Shoulder Pain (ED) Additional Instructions: Apply ice to the painful areas. Follow-up through primary care physician for recheck in 1-2 days. Return here immediately for any new, worsening, or concerning symptoms. Referrals: Jim Bell MD [Primary Care Provider] - 1-2 days
--- NOTE | 2017-11-03 22:33 | XR ---
EXAMINATION TYPE: XR shoulder complete RT DATE OF EXAM: 11/03/2017 COMPARISON: NONE HISTORY: Shoulder pain TECHNIQUE: 3 views FINDINGS: I see no fracture nor dislocation. Glenohumeral joint is anatomic. There are no pathologic calcifications. There is spurring at the AC joint. IMPRESSION: No acute abnormality of the right shoulder.
--- NOTE | 2017-11-03 22:33 | XR ---
EXAMINATION TYPE: XR humerus RT DATE OF EXAM: 11/03/2017 COMPARISON: NONE HISTORY: Shoulder pain TECHNIQUE: 3 views FINDINGS: Elbow joint and shoulder joint appear intact. I see no fracture nor dislocation. IMPRESSION: Negative right humerus exam.
[2017-11-03] MEDS ORDERED: ACET/COD 300 MG/30 MG STARTER PACK 6 TAB BTL PO STA (23:16)
== END 2017-11-03 23:34 | disposition home or self-care (01) ==
LOC: EC 20:50
DX: S46.911A Strain of unspecified muscle, fascia and tendon at shoulder and upper arm level, right arm, initial encounter (principal); M79.641 Pain in right hand; J44.9 Chronic obstructive pulmonary disease, unspecified; I10 Essential (primary) hypertension; K21.9 Gastro-esophageal reflux disease without esophagitis; I25.10 Atherosclerotic heart disease of native coronary artery without angina pectoris; Z88.5 Allergy status to narcotic agent; Z88.8 Allergy status to other drugs, medicaments and biological substances; Z91.030 Bee allergy status; Z88.2 Allergy status to sulfonamides; Z88.6 Allergy status to analgesic agent; Z91.048 Other nonmedicinal substance allergy status; Z79.02 Long term (current) use of antithrombotics/antiplatelets; Z79.4 Long term (current) use of insulin; Z79.899 Other long term (current) drug therapy; Z86.73 Personal history of transient ischemic attack (TIA), and cerebral infarction without residual deficits; Z85.41 Personal history of malignant neoplasm of cervix uteri; Z98.890 Other specified postprocedural states; W01.0XXA Fall on same level from slipping, tripping and stumbling without subsequent striking against object, initial encounter; Y92.009 Unspecified place in unspecified non-institutional (private) residence as the place of occurrence of the external cause
CPT/HCPCS: 99283

== ENCOUNTER 2017-11-11 18:52 | Emergency (ER) | payer OTHER ==
[2017-11-11 18:58] VITALS: BP 168/81; PULSE 76; RESP 18; TEMP 98.2
[2017-11-11] MEDS ORDERED: FLUCONAZOLE 100 MG TAB PO ONE (19:21)
--- NOTE | 2017-11-11 19:24 | ED ---
Female Urogenital HPI - General Chief complaint: Urogenital Stated complaint: poss uti Time Seen by Provider: 11/11/17 19:07 Source: patient Mode of arrival: ambulatory Limitations: no limitations - History of Present Illness Initial comments: 57-year-old female patient presents to the emergency department today for complaints of genital itching, urinary frequency, and dysuria. Patient states that she's had symptoms for the last 3-4 days. Patient states that she recently completed a prescription of Keflex for a toe infection. Patient states whenever she takes Keflex she does develop yeast infection. She is requesting diflucan. Patient denies any vaginal discharge or bleeding. Patient states that her labia are raw from itching so much. Patient denies any fever, chills, abdominal pain, nausea, or vomiting. Denies any chance of . Denies any concerns for STDs. Patient denies any recent rash, shortness breath, chest pain, abdominal pain, nausea, vomiting, diarrhea, constipation, back pain, numbness, tingling, dizziness, weakness, headache, visual changes, or any other complaints. - Related Data Home Medications Medication Instructions Recorded Confirmed Clopidogrel Bisulfate [Plavix] 75 mg PO DAILY 06/11/13 11/11/17 ALPRAZolam [Xanax] 0.25 mg PO TID PRN 09/27/14 11/11/17 Albuterol Nebulized [Ventolin 2.5 mg INHALATION RT-QID PRN 05/07/15 11/11/17 Nebulized] Metoprolol Tartrate [Lopressor] 25 mg PO BID 05/07/15 11/11/17 Insulin Glargine [Lantus] 50 unit SQ BID 08/26/15 11/11/17 Atorvastatin [Lipitor] 40 mg PO DAILY 10/21/15 11/11/17 Losartan Potassium [Cozaar] 25 mg PO DAILY 02/07/16 11/11/17 Cyanocobalamin [Vitamin B-12] 500 mcg PO DAILY 09/16/16 11/11/17 Potassium 99 mg PO DAILY 09/16/16 11/11/17 amLODIPine BESYLATE [Norvasc] 5 mg PO DAILY 09/16/16 11/11/17 Insulin Glulisine [Apidra] 5 - 10 unit SQ AC-TID 03/08/17 11/11/17 Ranitidine HCl 300 mg PO DAILY 03/08/17 11/11/17 Topiramate [Topamax] 100 mg PO BID 03/08/17 11/11/17 Ipratropium-Albuterol Nebulize 3 ml INHALATION RT-TID 10/20/17 11/11/17 [Duoneb 0.5 mg-3 mg/3 ml Soln] Topiramate [Topamax] 25 mg PO BID 11/11/17 11/11/17 Previous Rx's Medication Instructions Recorded Nitroglycerin Sl Tabs [Nitrostat] 0.4 mg SUBLINGUAL Q5M PRN #25 tab 10/11/15 Magnesium Oxide 400 mg PO DAILY #20 tablet 05/10/16 Albuterol Inhaler [Ventolin Hfa 1 - 2 puff INHALATION RT-Q6H PRN 09/17/17 Inhaler] #1 inhaler Fluconazole [Diflucan] 150 mg PO ONCE #1 tab 11/11/17 Nitrofurantoin Monohyd/M-Cryst 100 mg PO Q12HR #14 cap 11/11/17 [Macrobid] Allergies Allergy/AdvReac Type Severity Reaction Status Date / Time adhesive tape Allergy Rash/Hives Verified 11/11/17 19:29 baclofen Allergy loss of Verified 11/11/17 19:29 balance gabapentin Allergy loss of Verified 11/11/17 19:29 balance indomethacin Allergy Unknown Verified 11/11/17 19:29 insulin glargine Allergy Rash/Hives Verified 11/11/17 19:29 [From Basaglar KwikPen] ipratropium bromide Allergy Unknown Verified 11/11/17 19:29 [From Atrovent] ketorolac tromethamine Allergy Anaphylaxis Verified 11/11/17 19:29 [From Toradol] naproxen [From Naprosyn] Allergy Itching Verified 11/11/17 19:29 pantoprazole [From Protonix] Allergy memory loss Verified 11/11/17 19:29 pregabalin [From Lyrica] Allergy Unknown Verified 11/11/17 19:29 Sulfa (Sulfonamide Allergy Anaphylaxis Verified 11/11/17 19:29 Antibiotics) sulfamethoxazole Allergy Anaphylaxis Verified 11/11/17 19:29 [From Bactrim] tramadol Allergy Unknown Verified 11/11/17 19:29 trimethoprim [From Bactrim] Allergy Unknown Verified 11/11/17 19:29 venom-honey bee Allergy Anaphylaxis Verified 11/11/17 19:29 [bee venom (honey bee)] budesonide [From Symbicort] AdvReac Vomiting Verified 11/11/17 19:29 cephalexin [From Keflex] AdvReac YEAST Verified 11/11/17 19:29 INFECTION formoterol fumarate AdvReac Vomiting Verified 11/11/17 19:29 [From Symbicort] sucralose AdvReac Rapid Verified 11/11/17 19:29 [From Splenda (sucralose)] Heart Rate tramadol HCl [From Ultram] AdvReac SEIZURES Verified 11/11/17 19:29 Review of Systems ROS Statement: Those systems with pertinent positive or pertinent negative responses have been documented in the HPI. ROS Other: All systems not noted in ROS Statement are negative. Past Medical History Past Medical History: Coronary Artery Disease (CAD), Cancer, COPD, CVA/TIA, Diabetes Mellitus, GERD/Reflux, Hypertension Additional Past Medical History / Comment(s): HX: acute renal problem, neuropathy, CERVICAL CA. Perthes's dx affected short term memory. bilateral glaucoma. Last Myocardial Infarction Date:: 2001 or 2003 History of Any Multi-Drug Resistant Organisms: None Reported Past Surgical History: Cholecystectomy, Coronary Bypass/CABG, Heart Catheterization With Stent, Orthopedic Surgery Additional Past Surgical History / Comment(s): LEFT HIP ARTHOPLASTY. ORIF RIGHT ANKLE. Cervical cancer surgies. BILATERAL LASER EYE TX FOR GLAUCOMA. Laproscopy. TSS. stent to LAD in 10/2015-STENT TO DISTALCIRC 03/17/2017 Past Anesthesia/Blood Transfusion Reactions: No Reported Reaction Date of Last Stent Placement:: 03/2017 Past Psychological History: Anxiety Smoking Status: Never smoker Past Alcohol Use History: None Reported Past Drug Use History: None Reported - Past Family History Brother(s) Family Medical History: Deep Vein Thrombosis (DVT) Sister(s) Family Medical History: Cancer Father History Unknown: Yes Family Medical History: Deep Vein Thrombosis (DVT) Additional Family Medical History / Comment(s): Father at age 80yrs. of COPD and kidney faiilure. Mother History Unknown: Yes Family Medical History: Diabetes Mellitus Additional Family Medical History / Comment(s): Mother of diabetes at age 55 yrs. General Exam Limitations: no limitations General appearance: alert, in no apparent distress, other (This is a well- developed, well-nourished adult female patient in no acute distress. Vital signs upon presentation are temperature 98.2F, pulse 76, respirations 18, blood pressure 168/81, pulse ox 97% on room air.) Eye exam: Present: normal appearance, PERRL, EOMI. Absent: scleral icterus, conjunctival injection, periorbital swelling ENT exam: Present: normal exam, normal oropharynx, mucous membranes moist Respiratory exam: Present: normal lung sounds bilaterally. Absent: respiratory distress, wheezes, rales, rhonchi, stridor Cardiovascular Exam: Present: regular rate, normal rhythm, normal heart sounds. Absent: systolic murmur, diastolic murmur, rubs, gallop, clicks GI/Abdominal exam: Present: soft, normal bowel sounds. Absent: distended, tenderness, guarding, rebound, rigid Neurological exam: Present: alert, oriented X3, CN II-XII intact Psychiatric exam: Present: normal affect, normal mood Skin exam: Present: warm, dry, intact, normal color. Absent: rash Course Vital Signs 11/11/17 18:54 Temperature 98.2 F Pulse Rate 76 Respiratory 18 Rate Blood Pressure 168/81 O2 Sat by Pulse 97 Oximetry Medical Decision Making - Medical Decision Making 57 year-old female patient presents to the emergency department today for complaints of genital itching, dysuria, and urinary frequency. Physical examination is relatively unremarkable. Urinalysis did reveal cloudy appearance with 1+ protein, trace glucose, large blood, large leukocyte esterase , 52 red blood cells, 77 white blood cells, 20 squamous epithelial cells, occasional mucous. Patient symptoms are consistent with vaginal candidiasis. Urinalysis is concerning for infection. She'll be treated with Macrobid and given Diflucan for candidiasis. She is instructed to follow-up with her primary care physician for recheck in 1-2 days. Return parameters discussed in detail. She verbalizes understanding and agrees with this plan. - Lab Data Lab Results 11/11/17 Range/Units 19:47 Urine Color Yellow Urine Appearance Cloudy H (Clear) Urine pH 5.5 (5.0-8.0) Ur Specific [place] 1.022 (1.001-1.035) Urine Protein 1+ H (Negative) Urine Glucose (UA) Trace H (Negative) Urine Ketones Negative (Negative) Urine Blood Large H (Negative) Urine Nitrite Negative (Negative) Urine Bilirubin Negative (Negative) Urine Urobilinogen <2.0 (<2.0) mg/dL Ur Leukocyte Esterase Large H (Negative) Urine RBC 52 H (0-5) /hpf Urine WBC 77 H (0-5) /hpf Ur Squamous Epith Cells 28 H (0-4) /hpf Urine Mucus Occasional H (None) /hpf Disposition Clinical Impression: Urinary tract infection, Vaginal candidiasis Disposition: HOME SELF-CARE Condition: Serious Instructions: Urinary Tract Infection in Women (ED), Yeast Infection (ED) Additional Instructions: Increase fluids. Complete medications as directed. Take additional Diflucan dose in 3 days if symptoms are still present. Follow-up with your primary care physician for recheck in 1-2 days. Return here immediately for any new, worsening, or concerning symptoms. Prescriptions: Fluconazole [Diflucan] 150 mg PO ONCE #1 tab Nitrofurantoin Monohyd/M-Cryst [Macrobid] 100 mg PO Q12HR #14 cap Is patient prescribed a controlled substance at d/c from ED?: No Referrals: Jim Bell MD [Primary Care Provider] - 1-2 days Time of Disposition: 20:04
[2017-11-11 19:59] LABS: Appearance,Urine Cloudy (Clear); Bilirubin,Urine Negative (Negative); Blood,Urine Large (Negative); Color,Urine Yellow; Glucose,Urine (UA) Trace (Negative); Ketones,Urine Negative (Negative); Leukocyte Esterase,Urine Large (Negative); Mucus,Urine Occasional /hpf; Nitrite,Urine Negative (Negative); PH, Urine 5.5 (5.0-8.0); Protein,Urine 1+ (Negative); RBC,Urine 52 /hpf (0-5); Specific Gravity,Urine 1.022 (1.001-1.035); Squamous Epithelial Cell,Urine 28 /hpf (0-4); Urobilinogen,Urine <2.0 mg/dL (<2.0); WBC,Urine 77 /hpf (0-5)
== END 2017-11-11 20:15 | disposition home or self-care (01) ==
LOC: EC 18:52
DX: N39.0 Urinary tract infection, site not specified (principal); B37.3 Candidiasis of vulva and vagina; I25.10 Atherosclerotic heart disease of native coronary artery without angina pectoris; J44.9 Chronic obstructive pulmonary disease, unspecified; E11.40 Type 2 diabetes mellitus with diabetic neuropathy, unspecified; I10 Essential (primary) hypertension; K21.9 Gastro-esophageal reflux disease without esophagitis; H40.9 Unspecified glaucoma; Z95.1 Presence of aortocoronary bypass graft; Z85.41 Personal history of malignant neoplasm of cervix uteri; Z86.73 Personal history of transient ischemic attack (TIA), and cerebral infarction without residual deficits; Z95.5 Presence of coronary angioplasty implant and graft; Z98.890 Other specified postprocedural states; Z79.02 Long term (current) use of antithrombotics/antiplatelets; Z79.4 Long term (current) use of insulin; Z79.899 Other long term (current) drug therapy; Z91.048 Other nonmedicinal substance allergy status; Z88.8 Allergy status to other drugs, medicaments and biological substances; Z88.6 Allergy status to analgesic agent; Z88.2 Allergy status to sulfonamides; Z91.030 Bee allergy status; Z88.1 Allergy status to other antibiotic agents
CPT/HCPCS: 81001; 87086; 99283

== ENCOUNTER 2017-11-24 19:32 | Emergency (ER) | payer OTHER ==
--- NOTE | 2017-11-24 19:42 | ED ---
Upper Extremity HPI - General Stated Complaint: shoulder injury Time Seen by Provider: 11/24/17 19:34 Source: patient, EMS, RN notes reviewed Mode of arrival: EMS Limitations: no limitations - History of Present Illness Initial Comments: 57-year-old female well-known emergency department presents emergency from via EMS chief complaint of right shoulder pain. Patient states she's tripped and fell onto her right shoulder. Patient states that she believes that she dislocated her right shoulder. Patient does admit that she is currently in physical therapy for right shoulder prior injury recently. Patient denies any paresthesias no head injury no loss conscious. - Related Data Home Medications Medication Instructions Recorded Confirmed Clopidogrel Bisulfate [Plavix] 75 mg PO DAILY 06/11/13 11/11/17 ALPRAZolam [Xanax] 0.25 mg PO TID PRN 09/27/14 11/11/17 Albuterol Nebulized [Ventolin 2.5 mg INHALATION RT-QID PRN 05/07/15 11/11/17 Nebulized] Metoprolol Tartrate [Lopressor] 25 mg PO BID 05/07/15 11/11/17 Insulin Glargine [Lantus] 50 unit SQ BID 08/26/15 11/11/17 Atorvastatin [Lipitor] 40 mg PO DAILY 10/21/15 11/11/17 Losartan Potassium [Cozaar] 25 mg PO DAILY 02/07/16 11/11/17 Cyanocobalamin [Vitamin B-12] 500 mcg PO DAILY 09/16/16 11/11/17 Potassium 99 mg PO DAILY 09/16/16 11/11/17 amLODIPine BESYLATE [Norvasc] 5 mg PO DAILY 09/16/16 11/11/17 Insulin Glulisine [Apidra] 5 - 10 unit SQ AC-TID 03/08/17 11/11/17 Ranitidine HCl 300 mg PO DAILY 03/08/17 11/11/17 Topiramate [Topamax] 100 mg PO BID 03/08/17 11/11/17 Ipratropium-Albuterol Nebulize 3 ml INHALATION RT-TID 10/20/17 11/11/17 [Duoneb 0.5 mg-3 mg/3 ml Soln] Topiramate [Topamax] 25 mg PO BID 11/11/17 11/11/17 Previous Rx's Medication Instructions Recorded Nitroglycerin Sl Tabs [Nitrostat] 0.4 mg SUBLINGUAL Q5M PRN #25 tab 10/11/15 Magnesium Oxide 400 mg PO DAILY #20 tablet 05/10/16 Albuterol Inhaler [Ventolin Hfa 1 - 2 puff INHALATION RT-Q6H PRN 09/17/17 Inhaler] #1 inhaler Fluconazole [Diflucan] 150 mg PO ONCE #1 tab 11/11/17 Nitrofurantoin Monohyd/M-Cryst 100 mg PO Q12HR #14 cap 11/11/17 [Macrobid] Allergies Allergy/AdvReac Type Severity Reaction Status Date / Time adhesive tape Allergy Rash/Hives Verified 11/24/17 19:44 baclofen Allergy loss of Verified 11/24/17 19:44 balance gabapentin Allergy loss of Verified 11/24/17 19:44 balance indomethacin Allergy Unknown Verified 11/24/17 19:44 insulin glargine Allergy Rash/Hives Verified 11/24/17 19:44 [From Basaglar KwikPen] ipratropium bromide Allergy Unknown Verified 11/24/17 19:44 [From Atrovent] ketorolac tromethamine Allergy Anaphylaxis Verified 11/24/17 19:44 [From Toradol] naproxen [From Naprosyn] Allergy Itching Verified 11/24/17 19:44 pantoprazole [From Protonix] Allergy memory loss Verified 11/24/17 19:44 pregabalin [From Lyrica] Allergy Unknown Verified 11/24/17 19:44 Sulfa (Sulfonamide Allergy Anaphylaxis Verified 11/24/17 19:44 Antibiotics) sulfamethoxazole Allergy Anaphylaxis Verified 11/24/17 19:44 [From Bactrim] tramadol Allergy Unknown Verified 11/24/17 19:44 trimethoprim [From Bactrim] Allergy Unknown Verified 11/24/17 19:44 venom-honey bee Allergy Anaphylaxis Verified 11/24/17 19:44 [bee venom (honey bee)] budesonide [From Symbicort] AdvReac Vomiting Verified 11/24/17 19:44 cephalexin [From Keflex] AdvReac YEAST Verified 11/24/17 19:44 INFECTION formoterol fumarate AdvReac Vomiting Verified 11/24/17 19:44 [From Symbicort] sucralose AdvReac Rapid Verified 11/24/17 19:44 [From Splenda (sucralose)] Heart Rate tramadol HCl [From Ultram] AdvReac SEIZURES Verified 11/24/17 19:44 Review of Systems ROS Statement: Those systems with pertinent positive or pertinent negative responses have been documented in the HPI. ROS Other: All systems not noted in ROS Statement are negative. Past Medical History Past Medical History: Coronary Artery Disease (CAD), Cancer, COPD, CVA/TIA, Diabetes Mellitus, GERD/Reflux, Hypertension Additional Past Medical History / Comment(s): HX: acute renal problem, neuropathy, CERVICAL CA. Perthes's dx affected short term memory. bilateral glaucoma. Last Myocardial Infarction Date:: 2001 or 2003 History of Any Multi-Drug Resistant Organisms: None Reported Past Surgical History: Cholecystectomy, Coronary Bypass/CABG, Heart Catheterization With Stent, Orthopedic Surgery Additional Past Surgical History / Comment(s): LEFT HIP ARTHOPLASTY. ORIF RIGHT ANKLE. Cervical cancer surgies. BILATERAL LASER EYE TX FOR GLAUCOMA. Laproscopy. TSS. stent to LAD in 10/2015-STENT TO DISTALCIRC 03/17/2017 Past Anesthesia/Blood Transfusion Reactions: No Reported Reaction Date of Last Stent Placement:: 03/2017 Past Psychological History: Anxiety Smoking Status: Never smoker Past Alcohol Use History: None Reported Past Drug Use History: None Reported - Past Family History Brother(s) Family Medical History: Deep Vein Thrombosis (DVT) Sister(s) Family Medical History: Cancer Father History Unknown: Yes Family Medical History: Deep Vein Thrombosis (DVT) Additional Family Medical History / Comment(s): Father at age 80yrs. of COPD and kidney faiilure. Mother History Unknown: Yes Family Medical History: Diabetes Mellitus Additional Family Medical History / Comment(s): Mother of diabetes at age 55 yrs. General Exam General appearance: alert, in no apparent distress Head exam: Present: atraumatic, normocephalic, normal inspection Eye exam: Present: normal appearance, PERRL, EOMI. Absent: scleral icterus, conjunctival injection, periorbital swelling Neck exam: Present: normal inspection, full ROM. Absent: tenderness, meningismus, lymphadenopathy Respiratory exam: Present: normal lung sounds bilaterally. Absent: respiratory distress, wheezes, rales, rhonchi, stridor Cardiovascular Exam: Present: regular rate, normal rhythm, normal heart sounds. Absent: systolic murmur, diastolic murmur, rubs, gallop, clicks Extremities exam: Present: other (Diffuse tenderness the right shoulder, radial pulses equal bilaterally Refill less than 2 seconds. Strength equal bilaterally no ecchymosis) Course Vital Signs 11/24/17 19:43 Temperature 98.0 F Pulse Rate 79 Respiratory 18 Rate Blood Pressure 206/91 O2 Sat by Pulse 98 Oximetry Medical Decision Making - Medical Decision Making 57-year-old female presented for a fall right shoulder pain. X-rays obtained no acute changes no fracture no dislocation. Patient we placed a sling and follow-up with PCP as she's had prior right shoulder injury. Disposition Clinical Impression: Fall, Right shoulder strain Disposition: HOME SELF-CARE Condition: Stable Instructions: Shoulder Sprain (ED) Additional Instructions: Please return to the Emergency Department if symptoms worsen or any other concerns. Is patient prescribed a controlled substance at d/c from ED?: No Referrals: Jim Bell MD [Primary Care Provider] - 1-2 days Karsten Long MD [STAFF PHYSICIAN] - 1-2 days Time of Disposition: 20:52
[2017-11-24 19:45] VITALS: BP 206/91; PULSE 79; RESP 18; TEMP 98
--- NOTE | 2017-11-24 20:50 | XR ---
EXAMINATION TYPE: XR shoulder complete RT DATE OF EXAM: 11/24/2017 COMPARISON: 11/03/2017 HISTORY: Shoulder pain TECHNIQUE: 3 views FINDINGS: I see no fracture nor dislocation. Glenohumeral joint appears anatomic. There is spurring a t the AC joint. IMPRESSION: No acute abnormality of the right shoulder. No change.
[2017-11-24] MEDS ORDERED: Acetaminophen-Codeine 300-30mg TAB PO STA (20:55)
== END 2017-11-24 21:19 | disposition home or self-care (01) ==
LOC: EC 19:32
DX: S46.911A Strain of unspecified muscle, fascia and tendon at shoulder and upper arm level, right arm, initial encounter (principal); J44.9 Chronic obstructive pulmonary disease, unspecified; E11.40 Type 2 diabetes mellitus with diabetic neuropathy, unspecified; I25.10 Atherosclerotic heart disease of native coronary artery without angina pectoris; I10 Essential (primary) hypertension; K21.9 Gastro-esophageal reflux disease without esophagitis; Z88.1 Allergy status to other antibiotic agents; Z88.2 Allergy status to sulfonamides; Z88.5 Allergy status to narcotic agent; Z88.6 Allergy status to analgesic agent; Z88.8 Allergy status to other drugs, medicaments and biological substances; Z91.02 Food additives allergy status; Z91.030 Bee allergy status; Z91.048 Other nonmedicinal substance allergy status; Z79.02 Long term (current) use of antithrombotics/antiplatelets; Z79.4 Long term (current) use of insulin; Z79.899 Other long term (current) drug therapy; Z86.73 Personal history of transient ischemic attack (TIA), and cerebral infarction without residual deficits; Z85.41 Personal history of malignant neoplasm of cervix uteri; Z98.890 Other specified postprocedural states; Z95.1 Presence of aortocoronary bypass graft; W01.0XXA Fall on same level from slipping, tripping and stumbling without subsequent striking against object, initial encounter; Y92.89 Other specified places as the place of occurrence of the external cause
CPT/HCPCS: 99284

== ENCOUNTER 2018-01-20 01:14 | Emergency (ER) | payer OTHER ==
[2018-01-20] MEDS ORDERED: IPRATROPIUM-ALBUTEROL 3 ML NEB INHALATION STA (02:09)
[2018-01-20] MEDS ORDERED: predniSONE 20 MG TAB PO STA (02:11)
--- NOTE | 2018-01-20 02:11 | ED ---
General Adult HPI - General Source: patient, RN notes reviewed, old records reviewed Mode of arrival: ambulatory Limitations: no limitations <Jyothi Lipscomb - Last Filed: 01/24/18 00:57> <Sunita Polanco - Last Filed: 01/28/18 03:49> - General Chief complaint: Upper Respiratory Infection Stated complaint: URI Time Seen by Provider: 01/20/18 01:35 - History of Present Illness Initial comments: Patient's 57-year-old female well-known to the emergency department. She presents rinse her today with cough congestion 2 days. She reports her was diagnosed with bronchitis. Patient states that she is a nonsmoker. She does have history of chronic obstructive pulmonary disease. She states that her recently started on medications. Patient is concerned that he may have given the symptoms to her. She denies any fevers or chills. She denies chest pain. She denies any nausea or vomiting. (Jyothi Lipscomb) - Related Data Home Medications Medication Instructions Recorded Confirmed Clopidogrel Bisulfate [Plavix] 75 mg PO DAILY 06/11/13 11/11/17 ALPRAZolam [Xanax] 0.25 mg PO TID PRN 09/27/14 11/11/17 Albuterol Nebulized [Ventolin 2.5 mg INHALATION RT-QID PRN 05/07/15 11/11/17 Nebulized] Metoprolol Tartrate [Lopressor] 25 mg PO BID 05/07/15 11/11/17 Insulin Glargine [Lantus] 50 unit SQ BID 08/26/15 11/11/17 Atorvastatin [Lipitor] 40 mg PO DAILY 10/21/15 11/11/17 Losartan Potassium [Cozaar] 25 mg PO DAILY 02/07/16 11/11/17 Cyanocobalamin [Vitamin B-12] 500 mcg PO DAILY 09/16/16 11/11/17 Potassium 99 mg PO DAILY 09/16/16 11/11/17 amLODIPine BESYLATE [Norvasc] 5 mg PO DAILY 09/16/16 11/11/17 Insulin Glulisine [Apidra] 5 - 10 unit SQ AC-TID 03/08/17 11/11/17 Ranitidine HCl 300 mg PO DAILY 03/08/17 11/11/17 Topiramate [Topamax] 100 mg PO BID 03/08/17 11/11/17 Ipratropium-Albuterol Nebulize 3 ml INHALATION RT-TID 10/20/17 11/11/17 [Duoneb 0.5 mg-3 mg/3 ml Soln] Topiramate [Topamax] 25 mg PO BID 11/11/17 11/11/17 Previous Rx's Medication Instructions Recorded Nitroglycerin Sl Tabs [Nitrostat] 0.4 mg SUBLINGUAL Q5M PRN #25 tab 10/11/15 Magnesium Oxide 400 mg PO DAILY #20 tablet 05/10/16 Albuterol Inhaler [Ventolin Hfa 1 - 2 puff INHALATION RT-Q6H PRN 09/17/17 Inhaler] #1 inhaler Fluconazole [Diflucan] 150 mg PO ONCE #1 tab 11/11/17 Nitrofurantoin Monohyd/M-Cryst 100 mg PO Q12HR #14 cap 11/11/17 [Macrobid] Promethazine/Dextromethorphan 5 ml PO TID #120 ml 01/20/18 [Phenergan DM Syrup] methylPREDNISolone Dose Pack 4 mg PO DIRECTED #21 package 01/20/18 [Medrol Dose Pack] Allergies Allergy/AdvReac Type Severity Reaction Status Date / Time adhesive tape Allergy Rash/Hives Verified 01/20/18 01:23 baclofen Allergy loss of Verified 01/20/18 01:23 balance gabapentin Allergy loss of Verified 01/20/18 01:23 balance indomethacin Allergy Unknown Verified 01/20/18 01:23 insulin glargine Allergy Rash/Hives Verified 01/20/18 01:23 [From Basaglar KwikPen] ipratropium bromide Allergy Unknown Verified 01/20/18 01:23 [From Atrovent] ketorolac tromethamine Allergy Anaphylaxis Verified 01/20/18 01:23 [From Toradol] naproxen [From Naprosyn] Allergy Itching Verified 01/20/18 01:23 pantoprazole [From Protonix] Allergy memory loss Verified 01/20/18 01:23 pregabalin [From Lyrica] Allergy Unknown Verified 01/20/18 01:23 Sulfa (Sulfonamide Allergy Anaphylaxis Verified 01/20/18 01:23 Antibiotics) sulfamethoxazole Allergy Anaphylaxis Verified 01/20/18 01:23 [From Bactrim] tramadol Allergy Unknown Verified 01/20/18 01:23 trimethoprim [From Bactrim] Allergy Unknown Verified 01/20/18 01:23 venom-honey bee Allergy Anaphylaxis Verified 01/20/18 01:23 [bee venom (honey bee)] budesonide [From Symbicort] AdvReac Vomiting Verified 01/20/18 01:23 cephalexin [From Keflex] AdvReac YEAST Verified 01/20/18 01:23 INFECTION formoterol fumarate AdvReac Vomiting Verified 01/20/18 01:23 [From Symbicort] sucralose AdvReac Rapid Verified 01/20/18 01:23 [From Splenda (sucralose)] Heart Rate tramadol HCl [From Ultram] AdvReac SEIZURES Verified 01/20/18 01:23 Review of Systems ROS Other: All systems not noted in ROS Statement are negative. <Jyothi Lipscomb - Last Filed: 01/24/18 00:57> ROS Other: All systems not noted in ROS Statement are negative. <Sunita Polanco - Last Filed: 01/28/18 03:49> ROS Statement: Those systems with pertinent positive or pertinent negative responses have been documented in the HPI. Past Medical History Past Medical History: Coronary Artery Disease (CAD), Cancer, COPD, CVA/TIA, Diabetes Mellitus, GERD/Reflux, Hypertension Additional Past Medical History / Comment(s): HX: acute renal problem, neuropathy, CERVICAL CA. Perthes's dx affected short term memory. bilateral glaucoma. Last Myocardial Infarction Date:: 2001 or 2003 History of Any Multi-Drug Resistant Organisms: None Reported Past Surgical History: Cholecystectomy, Coronary Bypass/CABG, Heart Catheterization With Stent, Orthopedic Surgery Additional Past Surgical History / Comment(s): LEFT HIP ARTHOPLASTY. ORIF RIGHT ANKLE. Cervical cancer surgies. BILATERAL LASER EYE TX FOR GLAUCOMA. Laproscopy. TSS. stent to LAD in 10/2015-STENT TO DISTALCIRC 03/17/2017 Past Anesthesia/Blood Transfusion Reactions: No Reported Reaction Date of Last Stent Placement:: 03/2017 Past Psychological History: Anxiety Smoking Status: Former smoker Past Alcohol Use History: None Reported Past Drug Use History: None Reported - Past Family History Brother(s) Family Medical History: Deep Vein Thrombosis (DVT) Sister(s) Family Medical History: Cancer Father History Unknown: Yes Family Medical History: Deep Vein Thrombosis (DVT) Additional Family Medical History / Comment(s): Father at age 80yrs. of COPD and kidney faiilure. Mother History Unknown: Yes Family Medical History: Diabetes Mellitus Additional Family Medical History / Comment(s): Mother of diabetes at age 55 yrs. <Jyothi Lipscomb - Last Filed: 01/24/18 00:57> General Exam Limitations: no limitations General appearance: alert, in no apparent distress Head exam: Present: atraumatic, normocephalic, normal inspection Eye exam: Present: normal appearance, PERRL, EOMI. Absent: scleral icterus, conjunctival injection, periorbital swelling ENT exam: Present: normal exam, mucous membranes moist Neck exam: Present: normal inspection. Absent: tenderness, meningismus, lymphadenopathy Respiratory exam: Present: wheezes. Absent: normal lung sounds bilaterally, respiratory distress, rales, rhonchi, stridor Cardiovascular Exam: Present: regular rate, normal rhythm, normal heart sounds. Absent: systolic murmur, diastolic murmur, rubs, gallop, clicks Extremities exam: Present: normal inspection, full ROM, normal capillary refill. Absent: tenderness, pedal edema, joint swelling, calf tenderness Back exam: Present: normal inspection Neurological exam: Present: alert, oriented X3, CN II-XII intact <Jyothi Lipscomb - Last Filed: 01/24/18 00:57> <Sunita Polanco P - Last Filed: 01/28/18 03:49> - General Exam Comments Initial Comments: 57-year-old female. Alert and oriented. Patient appears in no significant distress. (Jyothi Lipscomb) Vital Signs 01/20/18 01/20/18 01/20/18 01:20 01:50 02:28 Temperature 97.7 F Pulse Rate 67 72 Respiratory 18 20 Rate Blood Pressure 189/73 O2 Sat by Pulse 100 Oximetry 01/20/18 01/20/18 02:33 03:35 Temperature 98.8 F Pulse Rate 72 89 Respiratory 18 Rate Blood Pressure 131/75 O2 Sat by Pulse 98 Oximetry Medical Decision Making - Radiology Data Radiology results: report reviewed <Jyothi Lipscomb - Last Filed: 01/24/18 00:57> <Sunita Polanco - Last Filed: 01/28/18 03:49> - Medical Decision Making 57-year-old female presents raise removed cough congestion 2 days. Patient has no fevers or chills Patient has some wheezing noted on exam. She appears in no acute distress. Patient states wheezing was cleared after one DuoNeb treatment. Patient's chest x-ray was reviewed and negative for any acute process. Discussed at this time she continue at home breathing treatments of inhalers. She is given 1 dose of by mouth prednisone. I discussed the Patient should have close follow-up with her primary care physician. Short course of steroids. All questions answered. (Jyothi Lipscomb) I was available for consultation in the emergency department. The history and physical exam were done by the Midlevel Provider. Medical decision making was done by the Midlevel Provider. The Midlevel Provider did not contact me for this patient's care. I was not directly involved in this patient's care. (Sunita Polanco) - Radiology Data Normal chest x-ray. Negative for any acute process. (Jyothi Lipscomb) Disposition Is patient prescribed a controlled substance at d/c from ED?: No Time of Disposition: 03:23 <Jyothi Lipscomb - Last Filed: 01/24/18 00:57> <Sunita Polanco - Last Filed: 01/28/18 03:49> Clinical Impression: Bronchitis Disposition: HOME SELF-CARE Condition: Good Instructions: Upper Respiratory Infection (ED) Additional Instructions: Follow-up with primary care physician. Return to emergency department if any alarming signs or symptoms occur. Prescriptions: methylPREDNISolone Dose Pack [Medrol Dose Pack] 4 mg PO DIRECTED #21 package Promethazine/Dextromethorphan [Phenergan DM Syrup] 5 ml PO TID #120 ml Referrals: Jim Bell MD [Primary Care Provider] - 1-2 days
--- NOTE | 2018-01-20 03:05 | XR ---
EXAMINATION TYPE: XR chest 2V DATE OF EXAM: 01/20/2018 COMPARISON: 09/17/2017 HISTORY: Upper respiratory symptoms chest pain TECHNIQUE: Frontal and lateral views of the chest are obtained. FINDINGS: There is no heart failure nor confluent pneumonic infiltrate. Costophrenic angles are yelena r. There are sternal wires. 20 thorax is intact. IMPRESSION: Normal chest. No change.
[2018-01-20] MEDS ORDERED: PROMETHAZ-COD 6.25-10 MG/5 ML 5 ML CUP PO STA (03:22)
[2018-01-20 03:37] VITALS: BP 131/75; PULSE 89; RESP 18; TEMP 98.8
== END 2018-01-20 03:37 | disposition home or self-care (01) ==
LOC: EC 01:14
DX: J44.9 Chronic obstructive pulmonary disease, unspecified (principal); I25.10 Atherosclerotic heart disease of native coronary artery without angina pectoris; K21.9 Gastro-esophageal reflux disease without esophagitis; I10 Essential (primary) hypertension; E11.40 Type 2 diabetes mellitus with diabetic neuropathy, unspecified; H40.9 Unspecified glaucoma; Z85.41 Personal history of malignant neoplasm of cervix uteri; F41.9 Anxiety disorder, unspecified; Z87.891 Personal history of nicotine dependence; Z79.01 Long term (current) use of anticoagulants; Z79.4 Long term (current) use of insulin; Z79.899 Other long term (current) drug therapy; Z88.5 Allergy status to narcotic agent; Z88.8 Allergy status to other drugs, medicaments and biological substances; Z91.048 Other nonmedicinal substance allergy status; Z88.2 Allergy status to sulfonamides; Z88.6 Allergy status to analgesic agent; Z91.030 Bee allergy status; Z88.1 Allergy status to other antibiotic agents; Z95.1 Presence of aortocoronary bypass graft; Z95.5 Presence of coronary angioplasty implant and graft
CPT/HCPCS: 94640; 71046; 99284; J7512

== ENCOUNTER → 2018-02-16 | Outpatient (CLI) | payer OTHER ==
[2018-02-16 21:06] LABS: C Reactive Protein <0.4 mg/dL (0.0-0.8); Uric Acid 4.4 mg/dL (2.9-7.7)
== END | disposition home or self-care (01) ==
LOC: LABWHC1 12:09
PROVIDERS: ATTEND Psychiatry & Neurology Pain Medicine
DX: M25.50 Pain in unspecified joint (principal)
CPT/HCPCS: 36415; 84550; 85652; 86140

== ENCOUNTER 2018-03-12 23:02 | Emergency (ER) | payer OTHER ==
[2018-03-12 23:12] VITALS: RESP 18
--- NOTE | 2018-03-12 23:58 | XR ---
EXAMINATION TYPE: XR foot complete RT DATE OF EXAM: 03/12/2018 COMPARISON: NONE HISTORY: Foot pain TECHNIQUE: 3 views FINDINGS: There is some spurring at the second MP joint. There is a plate fixing the distal fibula. T here are 2 screws fixing the medial malleolus. I see no fracture. Metatarsals are intact. There is a plantar calcaneal spur. IMPRESSION: No acute abnormality of the right foot. Osteoarthritis at the second MP joint. There is d ecreased soft tissue swelling lateral to the fifth MP joint compared to old exam.
[2018-03-13] MEDS ORDERED: Acetaminophen-Codeine 300-30mg TAB PO STA (00:06)
--- NOTE | 2018-03-13 00:15 | ED ---
General Adult HPI - General Chief complaint: Extremity Problem,Nontraumatic Stated complaint: R Foot Pain Time Seen by Provider: 03/12/18 23:17 Source: patient, RN notes reviewed Mode of arrival: wheelchair Limitations: no limitations - History of Present Illness Initial comments: Patient is a pleasant 7-year-old female presenting to the emergency Department with right foot pain. Patient had originally questioned if she stepped wrong or did something to it however now does not believe she actually anything. Patient did question him for gout was acting up. Patient states she does have chronic neuropathy with similar pain to this. Discomfort is mostly the plantar surface near the arch. Patient question if there could be some swelling. No color change. No fevers. - Related Data Home Medications Medication Instructions Recorded Confirmed Clopidogrel Bisulfate [Plavix] 75 mg PO DAILY 06/11/13 11/11/17 ALPRAZolam [Xanax] 0.25 mg PO TID PRN 09/27/14 11/11/17 Albuterol Nebulized [Ventolin 2.5 mg INHALATION RT-QID PRN 05/07/15 11/11/17 Nebulized] Metoprolol Tartrate [Lopressor] 25 mg PO BID 05/07/15 11/11/17 Insulin Glargine [Lantus] 50 unit SQ BID 08/26/15 11/11/17 Atorvastatin [Lipitor] 40 mg PO DAILY 10/21/15 11/11/17 Losartan Potassium [Cozaar] 25 mg PO DAILY 02/07/16 11/11/17 Cyanocobalamin [Vitamin B-12] 500 mcg PO DAILY 09/16/16 11/11/17 Potassium 99 mg PO DAILY 09/16/16 11/11/17 amLODIPine BESYLATE [Norvasc] 5 mg PO DAILY 09/16/16 11/11/17 Insulin Glulisine [Apidra] 5 - 10 unit SQ AC-TID 03/08/17 11/11/17 Ranitidine HCl 300 mg PO DAILY 03/08/17 11/11/17 Topiramate [Topamax] 100 mg PO BID 03/08/17 11/11/17 Ipratropium-Albuterol Nebulize 3 ml INHALATION RT-TID 10/20/17 11/11/17 [Duoneb 0.5 mg-3 mg/3 ml Soln] Topiramate [Topamax] 25 mg PO BID 11/11/17 11/11/17 Previous Rx's Medication Instructions Recorded Nitroglycerin Sl Tabs [Nitrostat] 0.4 mg SUBLINGUAL Q5M PRN #25 tab 10/11/15 Magnesium Oxide 400 mg PO DAILY #20 tablet 05/10/16 Albuterol Inhaler [Ventolin Hfa 1 - 2 puff INHALATION RT-Q6H PRN 09/17/17 Inhaler] #1 inhaler Fluconazole [Diflucan] 150 mg PO ONCE #1 tab 11/11/17 Nitrofurantoin Monohyd/M-Cryst 100 mg PO Q12HR #14 cap 11/11/17 [Macrobid] Promethazine/Dextromethorphan 5 ml PO TID #120 ml 01/20/18 [Phenergan DM Syrup] methylPREDNISolone Dose Pack 4 mg PO DIRECTED #21 package 01/20/18 [Medrol Dose Pack] Allergies Allergy/AdvReac Type Severity Reaction Status Date / Time adhesive tape Allergy Rash/Hives Verified 03/12/18 23:13 baclofen Allergy loss of Verified 03/12/18 23:13 balance gabapentin Allergy loss of Verified 03/12/18 23:13 balance indomethacin Allergy Unknown Verified 03/12/18 23:13 insulin glargine Allergy Rash/Hives Verified 03/12/18 23:13 [From Basaglar KwikPen] ipratropium bromide Allergy Unknown Verified 03/12/18 23:13 [From Atrovent] ketorolac tromethamine Allergy Anaphylaxis Verified 03/12/18 23:13 [From Toradol] naproxen [From Naprosyn] Allergy Itching Verified 03/12/18 23:13 pantoprazole [From Protonix] Allergy memory loss Verified 03/12/18 23:13 pregabalin [From Lyrica] Allergy Unknown Verified 03/12/18 23:13 Sulfa (Sulfonamide Allergy Anaphylaxis Verified 03/12/18 23:13 Antibiotics) sulfamethoxazole Allergy Anaphylaxis Verified 03/12/18 23:13 [From Bactrim] tramadol Allergy Unknown Verified 03/12/18 23:13 trimethoprim [From Bactrim] Allergy Unknown Verified 03/12/18 23:13 venom-honey bee Allergy Anaphylaxis Verified 03/12/18 23:13 [bee venom (honey bee)] budesonide [From Symbicort] AdvReac Vomiting Verified 03/12/18 23:13 cephalexin [From Keflex] AdvReac YEAST Verified 03/12/18 23:13 INFECTION formoterol fumarate AdvReac Vomiting Verified 03/12/18 23:13 [From Symbicort] sucralose AdvReac Rapid Verified 03/12/18 23:13 [From Splenda (sucralose)] Heart Rate tramadol HCl [From Ultram] AdvReac SEIZURES Verified 03/12/18 23:13 Review of Systems ROS Statement: Those systems with pertinent positive or pertinent negative responses have been documented in the HPI. ROS Other: All systems not noted in ROS Statement are negative. Constitutional: Denies: fever Eyes: Denies: eye pain ENT: Denies: ear pain Respiratory: Denies: cough Cardiovascular: Denies: chest pain Endocrine: Denies: fatigue Gastrointestinal: Denies: abdominal pain Genitourinary: Denies: dysuria Musculoskeletal: Denies: back pain Skin: Denies: rash Neurological: Denies: weakness Past Medical History Past Medical History: Coronary Artery Disease (CAD), Cancer, COPD, CVA/TIA, Diabetes Mellitus, GERD/Reflux, Hypertension Additional Past Medical History / Comment(s): HX: acute renal problem, neuropathy, CERVICAL CA. Perthes's dx affected short term memory. bilateral glaucoma. Last Myocardial Infarction Date:: 2001 or 2003 History of Any Multi-Drug Resistant Organisms: None Reported Past Surgical History: Cholecystectomy, Coronary Bypass/CABG, Heart Catheterization With Stent, Orthopedic Surgery Additional Past Surgical History / Comment(s): LEFT HIP ARTHOPLASTY. ORIF RIGHT ANKLE. Cervical cancer surgies. BILATERAL LASER EYE TX FOR GLAUCOMA. Laproscopy. TSS. stent to LAD in 10/2015-STENT TO DISTALCIRC 03/17/2017 Past Anesthesia/Blood Transfusion Reactions: No Reported Reaction Date of Last Stent Placement:: 03/2017 Past Psychological History: Anxiety Smoking Status: Former smoker Past Alcohol Use History: None Reported Past Drug Use History: None Reported - Past Family History Brother(s) Family Medical History: Deep Vein Thrombosis (DVT) Sister(s) Family Medical History: Cancer Father History Unknown: Yes Family Medical History: Deep Vein Thrombosis (DVT) Additional Family Medical History / Comment(s): Father at age 80yrs. of COPD and kidney faiilure. Mother History Unknown: Yes Family Medical History: Diabetes Mellitus Additional Family Medical History / Comment(s): Mother of diabetes at age 55 yrs. General Exam Limitations: no limitations General appearance: alert, in no apparent distress Head exam: Present: atraumatic Eye exam: Present: normal appearance Respiratory exam: Present: normal lung sounds bilaterally Cardiovascular Exam: Present: regular rate, normal rhythm Extremities exam: Present: other (Right foot with mild tenderness on the medial plantar aspect. No erythema. No swelling. No warmth.) Neurological exam: Present: alert. Absent: motor sensory deficit Psychiatric exam: Present: normal affect, normal mood Skin exam: Present: normal color. Absent: rash Course Vital Signs 03/12/18 23:09 Temperature 98.3 F Pulse Rate 79 Respiratory 18 Rate Blood Pressure 163/113 O2 Sat by Pulse 96 Oximetry Disposition Clinical Impression: Foot pain, right Disposition: HOME SELF-CARE Condition: Stable Instructions (If sedation given, give patient instructions): Peripheral Neuropathy (ED) Additional Instructions: Please follow-up to primary care physician in the next day or 2 for recheck. Return for fever, redness, swelling, worsening or changing symptoms or other concerns. Is patient prescribed a controlled substance at d/c from ED?: No Referrals: Jim Bell MD [Primary Care Provider] - 1-2 days Time of Disposition: 00:17
[2018-03-13 00:30] VITALS: BP 144/66; PULSE 77; TEMP 97
== END 2018-03-13 00:30 | disposition home or self-care (01) ==
LOC: EC 23:02
DX: M79.671 Pain in right foot (principal); I25.10 Atherosclerotic heart disease of native coronary artery without angina pectoris; J44.9 Chronic obstructive pulmonary disease, unspecified; K21.9 Gastro-esophageal reflux disease without esophagitis; I10 Essential (primary) hypertension; E11.40 Type 2 diabetes mellitus with diabetic neuropathy, unspecified; I25.2 Old myocardial infarction; F41.9 Anxiety disorder, unspecified; H40.9 Unspecified glaucoma; Z86.73 Personal history of transient ischemic attack (TIA), and cerebral infarction without residual deficits; Z85.41 Personal history of malignant neoplasm of cervix uteri; Z87.891 Personal history of nicotine dependence; Z79.01 Long term (current) use of anticoagulants; Z79.4 Long term (current) use of insulin; Z79.899 Other long term (current) drug therapy; Z91.048 Other nonmedicinal substance allergy status; Z88.8 Allergy status to other drugs, medicaments and biological substances; Z88.6 Allergy status to analgesic agent; Z88.5 Allergy status to narcotic agent; Z88.2 Allergy status to sulfonamides; Z88.1 Allergy status to other antibiotic agents; Z91.030 Bee allergy status; Z95.1 Presence of aortocoronary bypass graft; Z95.5 Presence of coronary angioplasty implant and graft
CPT/HCPCS: 99283

== ENCOUNTER → 2018-12-08 | Outpatient (CLI) | payer OTHER ==
--- NOTE | 2018-12-08 11:38 | XR ---
EXAMINATION TYPE: XR cervical spine comp DATE OF EXAM: 12/08/2018 COMPARISON: NONE HISTORY: Pain TECHNIQUE: Four views are submitted. FINDINGS: The odontoid is intact. There are no compression deformities. The prevertebral soft tissue structur es are within normal limits. Atherosclerotic change of the carotid arteries suspected bilaterally. S ternotomy wires are noted. Hypertrophic and degenerative changes are seen throughout the cervical spi ne with facet arthropathy. Foraminal encroachment C6-C7 bilaterally. IMPRESSION: 1. Multilevel hypertrophic and degenerative change with foraminal encroachment C6-C7 bilaterally..
== END | disposition home or self-care (01) ==
LOC: RADXRMAIN 10:32
PROVIDERS: ATTEND Family Medicine
DX: M47.812 Spondylosis without myelopathy or radiculopathy, cervical region (principal)
CPT/HCPCS: 72050

== ENCOUNTER → 2020-07-09 | Outpatient (CLI) | payer OTHER ==
--- NOTE | 2020-07-09 13:23 | US ---
EXAMINATION TYPE: US venous doppler duplex LE LT DATE OF EXAM: 07/09/2020 12:57 PM COMPARISON: Ultrasound 12/02/2011 CLINICAL HISTORY: M79.89 Left leg swelling. Left lower leg skin redness and pain x 1 week; takes Aspi rin and Plavix post CABG SIDE PERFORMED: left TECHNIQUE: The lower extremity deep venous system is examined utilizing real time linear array sonog esther with graded compression, doppler sonography and color-flow sonography. VESSELS IMAGED: Common Femoral Vein Deep Femoral Vein Greater Saphenous Vein * Femoral Vein Popliteal Vein Small Saphenous Vein * Proximal Calf Veins (* superficial vessels) Left Leg: Intimal wall changes are noted Left Femoral Vein suggests non occluding Chronic Wall avilez es Left Femoral Vein, otherwise is negative for DVT. Left Groin lymph nodes seen with larger node = 1 .8 x 1.3 x 0.8cm. Left ankle edema channels are noted. Tech findings called to Dr Thomas at exam's end. IMPRESSION: 1. There is thickening of the wall of the left femoral vein suggestive of chronic nonoccluding thromb us. No evidence of acute DVT of the left lower extremity. 2. There is edema within the soft tissues of the left ankle. 3. 1.8 cm left groin lymph node.
== END | disposition home or self-care (01) ==
LOC: RADUSWWP 12:22
PROVIDERS: ATTEND Family Medicine
DX: R60.0 Localized edema (principal); Z95.1 Presence of aortocoronary bypass graft; Z79.82 Long term (current) use of aspirin